=== PATIENT | female | born 1985 | race Caucasian/White ===

== ENCOUNTER → 2023-07-09 10:27 | Outpatient (BNVA) | payer OTHER, SELFPAY | PROVIDERS: Visit Provider Physician Assistant Surgical ==

== ENCOUNTER 2023-08-11 08:09 | Outpatient (AMB) | payer OTHER, SELFPAY ==
--- NOTE | 2023-08-09 15:20 | A.OFFVIS_ITS ---
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 HPI Details Start time: 3.14pm, End time: 3.59pm ?I spent 40 minutes speaking with the patient on the phone plus an additional 5 minutes reviewing and updating records for a total of 45 minutes HPI Comments History of Present Illness Details Previous weight loss efforts: Weight Watchers, self diets Wakes up: 7am, Sleeps: 9pm Breakfast: 8am (muffin, Atkins breakfast, or Premier premade shake) Lunch: skips Dinner: 5pm (steak with potatoes) Snacks: 11am and 2pm (skinny popcorn) Exercise: had a walking pad Fluids: Coffee (1-2 cups/day premade with calories), tea: none, soda: none, juice: none, ETOH: none PFSH Medical History (Updated 08/09/23 @ 15:27 by Alvin Copeland MD) Sciatica ADHD PTSD (post-traumatic stress disorder) Anxiety Depression Morbid obesity Surgical History (Updated 08/09/23 @ 15:27 by Alvin Copeland MD) Tubal ligation status History of placement of ear tubes Hx of section Family History (Updated 07/09/23 @ 14:32 by Emy Keys CMA) Mother Cancer, uterine Maternal Grandmother Cervical cancer Father FHx: prostate cancer Colon cancer Paternal Uncle Colon cancer Paternal Grandfather No problems noted. Social History (Updated 07/09/23 @ 14:14 by Emy Keys CMA) Alcohol intake: never Tobacco use type: Smokeless Tobacco Physical Exam Vital Signs: BMI result Body Mass Index 53.5 Assessment & Plan Assessment & Plan (1) Morbid obesity: Code(s): E66.01 - Morbid (severe) obesity due to excess calories Plan: 1.? Plan for lap sleeve gastrectomy. If diaphragmatic or ventral hernias are present at time of surgery, these will be repaired laparoscopically as well. 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 I emphasized the importance of close follow-up, adherence to instructions and good communication. 2. Nutritional counseling. Start with 2 premade PREMIER protein shakes (mix 5.5oz of Premier shake with 3oz low fat unsweetened almond milk each) at 8am- 10am and 11am-1pm, 1 protein bar (CELEBRATE protein bars, buy at [facility]) at 2pm-4pm, dinner at 5pm (10 forks of protein and 10 forks of salad/vegetables) AND one more protein bar after dinner at 7pm-9pm. So you do 2 protein shakes, 2 protein bars and one meal per day. Meal to include lean meat (beef, fish, pork, turkey, chicken), or bengali yogurt, or egg whites, or beans with a salad with olive oil and fruits (berries, pears, apples, kiwi). Avoid salt, breads, potatoes, rice, pasta, desserts. 3. Each shake would be drunk slowly, like coffee in a period of 2 hours. 4. Cut each bar in 4 pieces and eat each piece in 30min ?to make each bar last 2 hours. 5. I emphasized the importance of measuring accurately the food portion and measure it when serving the food in plate 6. The meal portions include 10 full-size forks of meat and 10 full-size forks of salad. You always eat the meat portion but you can replace up to 5 forks for salad/vegetables with rice, potatoes or pasta, or a fruit ?if you like. The less you do it the better weight loss will be. 7. One full-size fork is what it can be scooped on the fork without falling aside and not what can be bit with the fork. Use regular forks like those you find in a typical restaurant. 8.? Please send me weight measurements as soon as possible and then once a week. Always include your diet and exercise plan. 9. Start the walking pad burning 300 calories per day, either all together or in 2 sessions of 150 calories each, daily Goal is to burn 2000 calories per week on exercise. 10.?It is important of avoiding and for at least 18 months postoperatively and has been discussed at the infosession. 11. Goal is to lose at least 1.5-2lbs per week 12. Goal to lose 10% of your weight before surgery, which is about 28lbs. Ultimate weight goal: 255lbs before surgery 13. Please follow the diet plan exactly without any change. If you don't like something about the plan or you feel hungry you need to communicate with me so I can help you revise the plan. You should not change the plan yourself. Orders: Orders Complete Blood Count Auto Diff Today E66.01 - Morbid (severe) obesity due to excess calories Lipid Panel Today E66.01 - Morbid (severe) obesity due to excess calories Vitamin B1 Today E66.01 - Morbid (severe) obesity due to excess calories TSH reflex Free T4 Today E66.01 - Morbid (severe) obesity due to excess calories US abdomen comp w elastography 08/09/23 E66.01 - Morbid (severe) obesity due to excess calories Insulin Today E66.01 - Morbid (severe) obesity due to excess calories Hemoglobin A1c Today E66.01 - Morbid (severe) obesity due to excess calories H Pylori Breath Test 08/09/23 E66.01 - Morbid (severe) obesity due to excess calories IRON PROFILE Today E66.01 - Morbid (severe) obesity due to excess calories Comprehensive Met. Panel Today E66.01 - Morbid (severe) obesity due to excess calories Vitamin B12 and Folate Today E66.01 - Morbid (severe) obesity due to excess calories Zinc Today E66.01 - Morbid (severe) obesity due to excess calories C Reactive Protein Today E66.01 - Morbid (severe) obesity due to excess calories Vitamin A Today E66.01 - Morbid (severe) obesity due to excess calories Ferritin Today E66.01 - Morbid (severe) obesity due to excess calories Vitamin D 25-OH Total Today E66.01 - Morbid (severe) obesity due to excess calories XR chest 2V Today E66.01 - Morbid (severe) obesity due to excess calories ECG 12 lead EKG Today E66.01 - Morbid (severe) obesity due to excess calories FL upper GI w air 08/09/23 E66.01 - Morbid (severe) obesity due to excess calories Referrals Behavioral Health Referral E66.01 - Morbid (severe) obesity due to excess calories Nutrition/Dietitian Referral E66.01 - Morbid (severe) obesity due to excess calories Telehealth Telehealth Location of provider rendering services: practice address Location of patient: address on file Patient Identification confirmed using: Name, : Yes Telehealth method: voice only Patient verbally consented to treatment: Yes Patient verbally consented to billing insurance company: Yes Patient informed of any privacy concerns related to visit: Yes Minutes spent on Phone/Video with Pt.: 45 Coding Level of Care Code Tele New Pt Level 4 (52123) Diagnoses Morbid obesity E66.01 Time Spent (min) 45
[2023-08-09 15:35] VITALS: BMI 53.5
== END 2023-08-11 23:18 | disposition home or self-care (01) ==
LOC: HO.HBS 08:09
PROVIDERS: Visit Provider Surgery
DX: E66.01 Morbid (severe) obesity due to excess calories (principal)
CPT/HCPCS: 99204

== ENCOUNTER → 2023-08-11 08:09 | Outpatient (BNVA) | payer OTHER, SELFPAY | PROVIDERS: Visit Provider Surgery | DX: E66.01 Morbid (severe) obesity due to excess calories (principal) ==

== ENCOUNTER 2023-08-11 10:38 | Outpatient (REF) | payer OTHER, SELFPAY ==
--- NOTE | ~2023-08-11 | XR_ITS ---
EXAMINATION: XR CHEST CLINICAL INFORMATION: Obesity preprocedure. COMPARISON: None available. TECHNIQUE: 2 views of the chest were obtained. FINDINGS: No significant abnormality is noted involving the heart, lungs, mediastinum, bony thorax or soft tissues. XR/XR chest 2V IMPRESSION: Unremarkable examination.
[2023-08-11 10:53] LABS: MANUAL DIFF FLAG NO
--- NOTE | 2023-08-11 10:53 | ECG_ITS ---
Test Reason : obesity Blood Pressure : / mmHG Vent. Rate : 096 BPM Atrial Rate : 096 BPM P-R Int : 146 ms QRS Dur : 072 ms QT Int : 386 ms P-R-T Axes : 030 039 017 degrees QTc Int : 487 ms Normal sinus rhythm Nonspecific ST and T wave abnormality Abnormal ECG No previous ECGs available Referred By: Alvin Copeland Electronically Signed By:Jace Watson
[2023-08-11 11:23] LABS: Basophils Absolute Auto 0.1 X10*3/uL (0.0-0.2); Basophils Percent Auto 0.4 % (0-2); Eosinophils Absolute Auto 0.3 X10*3/uL (0.0-0.4); Eosinophils Percent Auto 2.9 % (0-4); Hematocrit 42.5 % (37.0-47.0); Imm Gran Abs Auto 0.04 X10*3/uL (0.00-0.03); Imm Gran Pct Auto 0.4 % (0.0-0.4); Lymphocytes Absolute Auto 3.8 X10*3/uL (1.2-4.9); Lymphocytes Percent Auto 33.5 % (20-40); Mean Corpuscular HGB Conc 32.9 g/dl (31.0-35.0); Mean Corpuscular Hemoglobin 29.4 pg (27.0-33.0); Mean Corpuscular Volume 89.1 fL (80.0-98.0); Mean Platelet Volume 8.9 fL (9.4-12.3); Monocytes Absolute Auto 0.6 X10*3/uL (0.1-1.2); Monocytes Percent Auto 4.9 % (2-11); Neutrophils Absolute Auto 6.6 x10*3/uL (2.0-8.3); Neutrophils Percent Auto 57.9 % (45-73); Platelet Count 381 X10*3/uL (160-400); Red Blood Count 4.77 X10*6/uL (4.20-5.50); Red Cell Distribution Width 13.8 % (11.0-16.0); White Blood Count 11.4 X10*3/uL (4.8-10.8)
[2023-08-11 11:30] LABS: Estimated Average Glucose 111 mg/dL; Hemoglobin A1c % 5.5 % (<6.0)
[2023-08-11 12:10] LABS: Alanine Aminotransferase 26 U/L (0-31); Alkaline Phosphatase 99 U/L (39-117); Anion Gap 10 (12-20); Aspartate Amino Transferase 15 U/L (5-31); Bilirubin Total 0.2 mg/dL (0.0-1.0); Blood Urea Nitrogen 12 mg/dL (9-16); C Reactive Protein 1.84 mg/dL (< or = 0.50); Calcium 9.2 mg/dL (8.4-10.2); Carbon Dioxide 22 mmol/L (22-29); Chloride 114 mmol/L (96-108); Cholesterol 128 mg/dL (<200); Estimated Glomerular Filt Rate > 60; Glucose Random 79 mg/dL (60-115); HDL Cholesterol 45 mg/dL (>40); Iron 50 mcg/dL (30-160); LDL Cholesterol Calculated 72 mg/dL (<100); Percent Iron Saturation 18 % (15-50); Potassium 3.8 mmol/L (3.3-5.1); Sodium 142 mmol/L (135-145); Total Iron Binding Capacity 278 mcg/dL (228-428); Total Protein 7.8 g/dL (6.5-8.0); Triglycerides 58 mg/dL (<150); Unsaturated Iron Binding 228 ug/dL
[2023-08-11 12:32] LABS: Folate 5.6 ng/mL (> or = 4.0); Vitamin B12 366 pg/mL (200-900)
[2023-08-11 12:36] LABS: Ferritin 57 ng/mL (10-122); Insulin 26 uU/mL (2-29); TSH reflex Free T4 1.27 uIU/mL (0.32-4.0); Vitamin D 25-OH Total 16.1 ng/mL (>30)
[2023-08-13 15:29] LABS: Zinc 74 mcg/dL (60-130)
[2023-08-15 00:43] LABS: Vitamin A 42 mcg/dL (38-98)
[2023-08-15 15:49] LABS: Vitamin B1 15 nmol/L (8-30)
== END 2023-08-11 10:39 | disposition home or self-care (01) ==
LOC: HO.XRAY 10:38
PROVIDERS: Visit Provider Surgery
DX: E66.01 Morbid (severe) obesity due to excess calories (principal); Z68.43 Body mass index [BMI] 50.0-59.9, adult; Z71.3 Dietary counseling and surveillance
CPT/HCPCS: 36415; 71046; 80053; 80061; 82306; 82607; 82728; 82746; 83036; 83525; 83540; 84425; 84443; 84590; 84630; 85025; 86140; 93005

== ENCOUNTER → 2023-08-11 10:53 | Outpatient (BNV) | payer OTHER, SELFPAY | PROVIDERS: Visit Provider Internal Medicine Cardiovascular Disease | DX: E66.01 Morbid (severe) obesity due to excess calories (principal); R94.31 Abnormal electrocardiogram [ECG] [EKG] | CPT/HCPCS: 93010 ==

== ENCOUNTER → 2023-08-12 13:14 | Outpatient (BNVA) | payer OTHER, SELFPAY | PROVIDERS: Visit Provider Counselor Mental Health | DX: F43.10 Post-traumatic stress disorder, unspecified (principal); E66.01 Morbid (severe) obesity due to excess calories; F32.A Depression, unspecified ==

== ENCOUNTER 2023-08-20 09:00 | Outpatient (REF) | payer OTHER, SELFPAY ==
--- NOTE | ~2023-08-20 | FL_ITS ---
EXAMINATION: XR FLUOROSCOPY UPPER GI WITH AIR CLINICAL INFORMATION: Preop evaluation prior to bariatric surgery COMPARISON: None TECHNIQUE: Fluoroscopic air contrast upper GI examination was performed utilizing standard techniques with thin and thick barium and effervescent granules. Numerous spot images were obtained. FINDINGS: Dual and single contrast images of the esophagus demonstrate normal caliber, contour, and mucosal pattern. No evidence of stricture, mass, or ulcerations identified. Esophageal peristalsis was normal. No evidence of hiatus hernia identified. Gastroesophageal reflux is seen up to the thoracic inlet. Dual contrast and single contrast images of the stomach demonstrated normal contour and mucosal pattern without evidence of mass, ulceration, or other abnormality. Contrast freely passed into the gastric antrum and duodenal bulb without delay. Single and air-contrast images of the duodenal bulb demonstrate no abnormality. The duodenal sweep has a normal appearance, course, and mucosal fold appearance. No malrotation. The imaged proximal jejunum has a normal fold pattern and caliber. FLUOROSCOPY TIME: 4 minutes 23 seconds Number of Spot Images: 9 Number of Cine: 11 DOSE AREA PRODUCT: 4070 uGy-m2 (microgray-meter squared) FL/FL upper GI w air IMPRESSION: 1. Moderate gastroesophageal reflux. This procedure was performed by Armain Mejia PA-C, and supervised by Dr. Espinal
== END 2023-08-20 09:01 | disposition home or self-care (01) ==
LOC: HO.XRAY 09:00
PROVIDERS: Visit Provider Surgery
DX: E66.01 Morbid (severe) obesity due to excess calories (principal)
CPT/HCPCS: 74246

== ENCOUNTER → 2023-08-20 09:01 | Outpatient (BNV) | payer OTHER, SELFPAY | PROVIDERS: Visit Provider Physician Assistant Surgical | DX: E66.01 Morbid (severe) obesity due to excess calories (principal); Z01.818 Encounter for other preprocedural examination | CPT/HCPCS: 74246 ==

== ENCOUNTER 2023-08-28 09:05 | Outpatient (REF) | payer OTHER, SELFPAY ==
--- NOTE | ~2023-08-28 | US_ITS ---
EXAMINATION: US COMPLETE ABDOMEN WITH LIVER ELASTOGRAPHY CLINICAL INFORMATION: Morbid obesity. COMPARISON: None available. TECHNIQUE: Real-time imaging of the abdominal viscera. Noninvasive ultrasound liver fibrosis assessment is performed using Pipo ElastPQ point quantification shear wave elastography (2D-SWE) with a C5-2 MHz transducer. Multiple elastography samples are obtained. FINDINGS: PANCREAS: Normal. The visualized pancreatic head and body are normal in appearance. The remainder of the pancreas is obscured from visualization by the overlying bowel gas. ABDOMINAL AORTA: The proximal, middle, and distal aortic segments are normal in caliber. INFERIOR VENA CAVA: Visualized portions are normal. LIVER: The liver demonstrates normal size, contour and generally increased echogenicity. No focal lesion or intrahepatic biliary duct dilatation. The right lobe measures 16.2 cm in length. The left lobe measures 11.2 cm in length. Portal flow is towards the liver (hepatopetal). Shear wave liver elastography median stiffness is 1.7 m/s (reference: normal median stiffness is 1.3 m/s or less). IQR/median stiffness to assess sampling precision is 0.13 (reference: good quality data set is IQR/median stiffness of 0.15 or less). GALLBLADDER: There are gallstones, without evidence of stones, sludge, polyps, wall thickening or pericholecystic fluid. COMMON BILE DUCT: Normal in caliber measuring 0.3 cm in diameter. RIGHT KIDNEY: Normal. No hydronephrosis. No renal calculi or focal parenchymal lesions. The kidney measures 11.6 cm in maximum dimension. LEFT KIDNEY: Normal. No hydronephrosis. No renal calculi or focal parenchymal lesions. The kidney measures 11.6 cm in maximum dimension. SPLEEN: Normal. The spleen measures 9.6 cm in maximum dimension. FREE FLUID: None. US/US abdomen comp w elastography IMPRESSION: 1. There is generalized increase in hepatic echotexture, consistent with fatty infiltration or hepatocellular disease. Please correlate clinically. No focal hepatic mass or intrahepatic biliary dilatation is seen. 2. Liver elastography: Measurements are suggestive of compensated advanced chronic liver disease but need further test for confirmation. 3. There is cholelithiasis. REFERENCE: Society of Radiologists in Ultrasound Liver Stiffness Thresholds (2020): LIVER STIFFNESS THRESHOLDS: *Liver Stiffness equal or less than 1.3 m/s: High probability of being normal. *Liver Stiffness less than 1.7 m/s: In the absence of other known clinical signs, rules out compensated advanced chronic liver disease. *Liver Stiffness 1.7-2.1 m/s: Suggestive of compensated advanced chronic liver disease but need further test for confirmation. *Liver Stiffness over 2.1 m/s: Rules in compensated advanced chronic liver disease. *Liver Stiffness over 2.4 m/s: Suggestive of clinically significant portal hypertension. QUALITY OF DATA SET: *IQR/Median value equal or less than 0.15 implies a quality data set. *IQR/Median value over 0.15 implies a poor quality data set. SIGNIFICANT CHANGE FROM PRIOR EXAM: Significant change if liver stiffness measurement is 10% or greater from prior exam. OTHER CONSIDERATIONS: The stage of liver fibrosis may be overestimated in the setting of acute hepatitis, liver inflammation, elevated liver function tests, hepatic vascular congestion, obstructive cholestasis, non-fasting state, and infiltrative diseases such as amyloidosis and lymphoma. In some patients with NAFLD, the liver stiffness thresholds for compensated advanced chronic liver disease may be lower. In causes other than viral hepatitis and NAFLD, liver stiffness thresholds are not well established.
== END 2023-08-28 09:06 | disposition home or self-care (01) ==
LOC: HO.US 09:05
PROVIDERS: Visit Provider Surgery
DX: E66.01 Morbid (severe) obesity due to excess calories (principal)
CPT/HCPCS: 76700; 76981

== ENCOUNTER 2023-09-02 11:19 | Day surgery (SDC) | payer OTHER, SELFPAY ==
--- NOTE | 2023-08-29 14:49 | HO.ANESPROP2 ---
Documented by User: Emily Lake NP 08/29/23 14:49 HPI - Anesthesia Eval Consult details Narrative: 38yo F for Upper Endoscopy PMFSH Active Problems Active Problems: All Active Problems Abnormal EKG (Acute) Vitamin B12 deficiency (Acute) Vitamin D deficiency (Acute) Sciatica (Acute) ADHD (Acute) PTSD (post-traumatic stress disorder) (Acute) Anxiety (Acute) Depression (Acute) Morbid obesity (Acute) Past Medical History Medical History Sciatica ADHD PTSD (post-traumatic stress disorder) Anxiety Depression Morbid obesity Family History Family History Mother Cancer, uterine Maternal Grandmother Cervical cancer Father FHx: prostate cancer Colon cancer Paternal Uncle Colon cancer Paternal Grandfather No problems noted. Surgical History Surgical History Tubal ligation status History of placement of ear tubes Hx of section Social History Social History Alcohol intake: never Patient Tobacco Use Status: Never used Tobacco Tobacco use type: Smokeless Tobacco Use of substances other than those prescribed or required for medical reasons: No Are you DNR?: No Advance Directives: No Advance Directives Information Provided: Yes Meds Allergies Allergy/AdvReac Type Severity Reaction Status Date / Time celclor AdvReac Mild Hives Uncoded 09/02/23 11:50 Home Medications ?Medication ?Instructions ?Recorded ?Confirmed ?Last Taken ?Type medroxyprogesterone 150 mg/mL 150 mg IM [id number] 07/09/23 Unknown History intramuscular suspension (Depo-Provera) nortriptyline 50 mg capsule 60 mg PO DAILY 07/09/23 09/02/23 09/01/23 History topiramate 200 mg tablet 350 mg PO DAILY 07/09/23 09/02/23 09/01/23 History escitalopram oxalate 10 mg tablet 10 mg PO DAILY 08/09/23 09/02/23 09/01/23 History hydroxyzine HCl 25 mg tablet 25 mg PO BEDTIME 08/09/23 08/09/23 Unknown History Assessment and Plan Assessment Anesthesia Assessment: Chart Reviewed Documented by User: Jennifer Pendleton MD 09/02/23 13:45 PMFSH Past Medical History Medical History Sciatica ADHD PTSD (post-traumatic stress disorder) Anxiety Depression Morbid obesity Family History Family History Mother Cancer, uterine Maternal Grandmother Cervical cancer Father FHx: prostate cancer Colon cancer Paternal Uncle Colon cancer Paternal Grandfather No problems noted. Surgical History Surgical History Tubal ligation status History of placement of ear tubes Hx of section History of Problems with Anesthesia: No Social History Social History Alcohol intake: never Patient Tobacco Use Status: Never used Tobacco Tobacco use type: Smokeless Tobacco Use of substances other than those prescribed or required for medical reasons: No Are you DNR?: No Advance Directives: No Advance Directives Information Provided: Yes Meds Allergies Allergy/AdvReac Type Severity Reaction Status Date / Time celclor AdvReac Mild Hives Uncoded 09/02/23 11:50 Home Medications ?Medication ?Instructions ?Recorded ?Confirmed ?Last Taken ?Type medroxyprogesterone 150 mg/mL 150 mg IM [id number] 07/09/23 Unknown History intramuscular suspension (Depo-Provera) nortriptyline 50 mg capsule 60 mg PO DAILY 07/09/23 09/02/23 09/01/23 History topiramate 200 mg tablet 350 mg PO DAILY 07/09/23 09/02/23 09/01/23 History escitalopram oxalate 10 mg tablet 10 mg PO DAILY 08/09/23 09/02/23 09/01/23 History hydroxyzine HCl 25 mg tablet 25 mg PO BEDTIME 08/09/23 08/09/23 Unknown History Exam Airway Mallampati Class: III (globally poor dentition) TM Dist: >3cm Neck ROM: Full Loose/Missing/Broken Teeth: Yes, Upper and Lower Heart: RRR Lungs: CTA Assessment and Plan Assessment Anesthesia Assessment: Anesthesia Plan Discussed Final Anesthetic Review History of Problems with Anesthesia: No NPO: Yes ASA Class: III Final Preanesthetic Review: Meds/Allgs Chart Reviewed, Consent Obtained/Reviewed and Anes Risks/Benef Reviewed Patient Risk: Intermediate Procedure Risk: Intermediate Anesthetic Plan Anesthetic Plan: MAC: Disposition: Standard PACU
[2023-09-02] VITALS (17 sets, daily range): BP systolic 108–149; BP diastolic 72–90; PULSE 81–91; RESP 14–18; TEMP 35.9–36.6; O2SAT 92–100; BMI 51.4
[2023-09-02] MEDS: Lactated Ringers 1,000 ML 80 ML IVCONT (12:12)
--- NOTE | 2023-09-02 15:08 | P.HPSUR_ITS ---
Pre-Procedural Eval Section A - 24 Hr Update-Section A only Date of Service: 09/02/23 The patient is an INPATIENT: No Section B - Complete if H&P > 30 days Chief Complaint: Morbid (severe) obesity due to excess calories Details of Present Illness: GERD Relevant Family History (Specify if Yes): No Relevant Social History: None Present Medications: None Medical History: No relevant PMH History of Previous Operations: No relevant previous surgery Allergies: Allergies Allergy/AdvReac Type Severity Reaction Status Date / Time celclor AdvReac Mild Hives Uncoded 09/02/23 11:50 Review of Systems Sugical H&P ROS: Negative: Constitution, Cardiovascular, Respiratory, Neurological, Psychiatric, Hem-Onc, Allergic/Immunologic, Gastrointestinal, Genitourinary, Musculoskeletal, Integumentary, Endocrine and Eyes/Ears/N ose/Throat Exam Surgical H&P Exam: Normal: HEENT, Normal: Heart, Normal: Lungs, Normal: Extremities, Normal: Abdomen, Normal: Skin and Normal: Neurological Plan Diagnosis/Plan: Unchanged (EGD to assess etiology of GERD. Risks of bleeding and perforation were discussed with the patient and she is in agreement with the plan.) I have reviewed the history and physical and performed a pertinent physical examination on my patient. No changes have occurred unless specified. Time Spent With Patient Time: Total time managing care of this patient today ____ minutes.
--- NOTE | 2023-09-02 15:11 | P.BOP_ITS ---
Brief Operative Note Date of Service: 09/02/23 Pre-op diagnosis: GERD Post-op diagnosis: same Procedure: PROCEDURE DATE: 09/02/2023 PREOPERATIVE DIAGNOSIS: GERD POSTOPERATIVE DIAGNOSIS: ?Same as above. 1) Normal endoscopy PROCEDURE: [id number] with biopsies Surgeon: Antonio Copeland M.D.. Ph.D. Washer Operator: None ? Anesthesia: IV sedation Estimated blood loss: ?Minimal FINDINGS AND PROCEDURE: ? OPERATIVE INDICATIONS: ?The patient is a 38 year old female known to me who is interested in bariatric surgery. The patient has GERD. Based on this information I recommended an upper endoscopy to evaluate the patient's symptoms. Risks and complications of the surgery were discussed with the patient in advance particularly the possibility of perforation or bleeding that may require surgica l intervention. The patient understood the risks and was in agreement with the plan. ? PROCEDURE: After informed consent was obtained by the patient, the patient was ?transferred to the Operating Room and was placed in the supine position.? After successful induction of IV sedation, a mouth block was inserted and the patient was placed in the left lateral decubitus position. An upper endoscopy was performed next, the oropharynx and esophagus appeared within the normal limits. There was no hiatal hernia. The z-line was smooth. Two biopsies were obtained from the distal esophagus 2-3 cm proximal to the GE junction and two additional biopsies from the GE junction. The stomach was entered and it appeared to be of normal size. There was no gastritis. There was no stricture or ulcer. A biopsy was obtained from the gastric fundus and antrum. No significant bleeding was noted from any of the biopsy sites. The scope was then advanced into the duodenum which appeared to be normal as well. Retr oflexion of the scope revealed a normal GE junction. At that point the duodenum ?and the stomach were decompressed and the scope was withdrawn from the patient's mouth. The patient extubated and was transferred in stable condition to the Recovery Room for further care. I was present and performed all steps of the procedure. There were no residents to assist with this case. Brandon Copeland M.D., Ph.D. Surgeon: Alvin Copeland MD Anesthesia: MAC Was an Washer Operator used for this Procedure?: No Estimated blood loss (mL): 0 IV fluids (mL): 400 Urine output (mL): 0 (No Louis to record output) Pathology: other (1) antrum x1, 2) fundus x1, 3) GE junction x2, 4) distal esophagus x2) Condition: stable Disposition: PACU
--- NOTE | 2023-09-02 17:32 | PC.NURSE ---
Dr. Guevara at bedside to assess patient. Cleared patient to be discharged at this time.
== END 2023-09-02 17:34 | disposition home or self-care (01) ==
PROVIDERS: Visit Provider Surgery
PROC: 0DJ08ZZ Inspection of Upper Intestinal Tract, Via Natural or Artificial Opening Endoscopic (ICD-10-PCS; CPT 43235; principal; 2023-09-02 13:10)
DX: K21.9 Gastro-esophageal reflux disease without esophagitis (principal); E66.01 Morbid (severe) obesity due to excess calories; Z68.43 Body mass index [BMI] 50.0-59.9, adult; F90.9 Attention-deficit hyperactivity disorder, unspecified type; F32.A Depression, unspecified; F41.9 Anxiety disorder, unspecified; F43.10 Post-traumatic stress disorder, unspecified; M54.30 Sciatica, unspecified side; Z79.899 Other long term (current) drug therapy; Z88.8 Allergy status to other drugs, medicaments and biological substances
CPT/HCPCS: 43239; 88305; 88313; 88342; J2405; J2704; J3010

== ENCOUNTER → 2023-09-02 11:19 | Outpatient (BNV) | payer OTHER, SELFPAY | PROVIDERS: Visit Provider Surgery | DX: K21.9 Gastro-esophageal reflux disease without esophagitis (principal) | CPT/HCPCS: 43239 ==

== ENCOUNTER → 2023-09-10 11:20 | Outpatient (BNVA) | payer OTHER, SELFPAY | PROVIDERS: Visit Provider Surgery | DX: K80.20 Calculus of gallbladder without cholecystitis without obstruction (principal); R11.0 Nausea ==

== ENCOUNTER → 2023-09-10 11:20 | Outpatient (AMB) | payer OTHER, SELFPAY ==
--- NOTE | 2023-09-10 08:21 | MHC.OFFVISWM ---
VS Expanded 09/10/23 12:17 Height 5 ft 1 in Weight 272 lb 5 oz BMI 51.4 Body Fat % 69.3 Body Fat Mass 188.8 Fat Free Mass 83.4 Visceral Fat Rating 30 Body Water % 20.9 Body Water Mass 56.9 Basal Metabolic Rate/Score 1,928 Intake Visit Reasons: TV Pre Op Lap Jenelle 09/17/23 Allergies celclor Adverse Reaction (Mild, Uncoded 09/02/23 11:50) Hives Medication List - Last Reconciled 09/10/23 by Alvin Copeland MD cholecalciferol (vitamin D3) 125 mcg PO DAILY escitalopram oxalate 10 mg PO DAILY hydroxyzine HCl 25 mg PO BEDTIME mecobalamin (vitamin B12) 1,000 mcg sublingual DAILY medroxyprogesterone (Depo-Provera) 150 mg IM [id number] nortriptyline 60 mg PO DAILY ondansetron 4 mg PO Q12H topiramate 350 mg PO DAILY HPI HPI TV Pre Op Lap Jenelle 09/17/23: Details: Start time: 10.30am, End time: 10.50am ?I spent 15 minutes speaking with the patient on the phone plus an additional 5 minutes reviewing and updating records for a total of 20 minutes HPI Comments Details: Patient was found to have cholelithiasis and is scheduled for [facility] Medical History Sciatica ADHD PTSD (post-traumatic stress disorder) Anxiety Depression Morbid obesity Surgical History Tubal ligation status History of placement of ear tubes Hx of section Family History Mother Cancer, uterine Maternal Grandmother Cervical cancer Father FHx: prostate cancer Colon cancer Paternal Uncle Colon cancer Paternal Grandfather No problems noted. Social History Alcohol intake: never Patient Tobacco Use Status: Never used Tobacco Tobacco use type: Smokeless Tobacco Telehealth Telehealth Telehealth Platform: Telephone Location of provider rendering services: practice address Location of patient: address on file Patient Identification confirmed using: Name, : Yes Telehealth method: voice only Patient verbally consented to treatment: Yes Patient verbally consented to billing insurance company: Yes Patient informed of any privacy concerns related to visit: Yes Minutes spent on Phone/Video with Pt.: 20 Assessment & Plan Assessment & Plan (1) Cholelithiasis: Code(s): K80.20 - Calculus of gallbladder without cholecystitis without obstruction Category: Medical Qualifiers: Cholelithiasis location: gallbladder Cholecystitis presence: without cholecystitis Biliary obstruction: without biliary obstruction Qualified Code(s): K80.20 - Calculus of gallbladder without cholecystitis without obstruction Plan: 1. The patient was not aware of having a cholelithiasis. We also discussed that bariatric surgery may accelerate the onset of symptoms of cholelithiasis and that is why elective cholecystectomy in indicated and recommended. We discussed in detail the potential complications and their management including bleeding, bile leak, pancreatitis and major bile duct injury. 2. Avoid any aspirin, motrin, aleve, ibuprofen, advil, meloxicam. They can cause bleeding. You can use Tylenol 3. Do your preoperative blood work nay day tomorrow 09/11/23 or Friday09/12/23. No need to fast. Orders: Orders Type and Screen Today K80.20 - Calculus of gallbladder without cholecystitis without obstruction Prothrombin Time INR Today K80.20 - Calculus of gallbladder without cholecystitis without obstruction Partial Thromboplastin Time Today K80.20 - Calculus of gallbladder without cholecystitis without obstruction Medications: New ondansetron 4 mg PO Q12H 20 tabs 0RF nausea and vomiting R11.0 - Nausea
[2023-09-10 12:17] VITALS: BMI 51.4
== END ==
PROVIDERS: Visit Provider Surgery
DX: K80.20 Calculus of gallbladder without cholecystitis without obstruction (principal)
CPT/HCPCS: 99213

== ENCOUNTER → 2023-09-11 07:47 | Outpatient (REF) | payer OTHER, SELFPAY ==
--- NOTE | 2023-09-11 07:50 | CA_ITS ---
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 Technically limited study 2. Low normal LV ejection fraction of 50-55% 3. Normal cardiac valvular Dopplers 4. Normal RV systolic pressure Findings Procedure Information Contrast agent, definity, is being given per protocol without apparent complications. Left Ventricle Normal left ventricular cavity size. There is normal left ventricular wall thickness. The left ventricular systolic function is low normal. The visually estimated ejection fraction is between 50-55%. Spectral Doppler is indicative of a normal filling pattern. Right Ventricle The right ventricle was not well visualized. There is normal right ventricular systolic function. Atria The left atrium is normal in size. Interatrial shunt cannot be excluded. The right atrium was not well visualized. Aortic Valve The aortic valve structure and function is likely normal. There is no aortic valve stenosis. There is no aortic valve regurgitation. Mitral Valve Likely normal mitral valve structure and function. There is trace mitral valve regurgitation. There is no mitral valve stenosis. Pulmonic Valve The pulmonic valve was not well visualized. Tricuspid Valve Likely normal tricuspid valve structure and function. There is trace tricuspid valve regurgitation. The right ventricular systolic pressure is normal. The right ventricular systolic pressure is 10 mmHg. Normal right atrial pressure. There is no evidence of pulmonary hypertension. Great Vessels The aorta was not well visualized. The pulmonary artery was not well visualized. Venous The inferior vena cava is normal in size and collapses greater than 50% with inspiration. Pericardium/Pleural The pericardium was not well visualized. Prior Study Comparison No prior study available for comparison. Measurements 2D Linear Measurements IVSd: 1.01 0.6-0.9/0.6-1.0 cm LVIDd: 4.56 3.9-5.3/4.2-5.9 cm LVIDd Index: 2.13 2.4-3.2/2.2-3.1 cm/m2 LVIDs: 3.27 2.0-3.6 cm LVPWd: 0.96 0.7-1.1 cm LA Diam: 3.50 2.7-3.8/3.0-4.0 cm LAIDs Index: 1.64 1.5-2.3 cm/m2 LV Mass: 190.44 67-162/88-224 g LV Mass Index: 88.99 43-95/49-115 g/m2 LVOT Diam: 2.20 3.0+(-)1.3 cm 2D Systolic Function EF 4C: 52.00 >55% EF 2C: 55.60 >55% EF BiP: 53.30 >55% Mitral Valve MV Pk E: 0.82 MV PK A: 0.62 MV Decel Time: 149.00 E/A: 1.30 E'Lateral: 8.16 E'Medial: 7.94 E/E' Med: 10.40 E/E' Lat: 10.10 PHT: 44.00 MVA PHT: 5.00 Decel [place]: 5.53 Aortic Valve AoV Pk Nader: 1.31 AoV Mn Nader: 0.89 AoV VTI: 0.26 AoV Pk Grad: 7.00 Aov Mn Grad: 4.00 DINESH Cont.VTI: 2.27 LVOT LVOT Pk Nader: 0.73 LVOT Mn Nader: 0.49 LVOT VTI: 0.16 LVOT Pk Grad: 2.00 LVOT Mn Grad: 1.00 LVOT Diam: 2.20 LVOT Area: 3.80 Diastolic Function MV Pk E: 0.82 MV Pk A: 0.62 E/A: 1.30 E'Medial: 7.94 E/E' Med: 10.40 E' Laterial: 8.16 E/E' Lat: 10.10 Right Ventricle TAPSE (mm): 18.40 TVS' Nader: 11.40 Tricuspid Valve TR Pk Nader: 1.36 TR Pk Grad: 7.00 RA Press: 3.00 RVSP: 10.00 Great Vessels Aorta Sinus of Valsalva: 3.59 2.0-3.[address] [place]: 2.91 1.7-3.4 cm Ao Asc: 3.40 2.1-3.4 cm Updated in Other Vendor System with Status of Final Stef Reina MD electronically signed on 09/11/2023 3:54:11 PM with status of Final
--- NOTE | 2023-09-11 07:50 | CA_ITS ---
Acquisition Time: 2023-09-11 09:19:04 Total Exercise Time: 00:06:29 Test Indications: Abnormal ECG Medications: ESCITALOPRAM HYDROXYZINE TOPIRAMATE NORTRIPTYLINE Protocol: NORBERTO Max HR: 169 BPM 92% of Pred: 182 BPM Max BP: 160/068 mmHG Max Work Load: 7.5 METS Exercise stress test exercise 6 min 29 sec of Norberto protocol achieving 87% MPHR, with moderate SOB, no chest discomfort, with isolated PVCs, with normotensive response to exercise, without EKG changes. Breathing returned back to normal with rest. Test reviewed with Dr. Watson Referred By: Alvin Copeland Overread By: Rin Espinal
[2023-09-11 10:15] LABS: Prothrombin Time 12.7 SEC (11.1-13.3)
== END ==
LOC: HO.CARD 07:47
PROVIDERS: Visit Provider Surgery
DX: R94.31 Abnormal electrocardiogram [ECG] [EKG] (principal); K80.20 Calculus of gallbladder without cholecystitis without obstruction
CPT/HCPCS: 36415; 85610; 85730; 93017; 93306; Q9957

== ENCOUNTER → 2023-09-11 07:50 | Outpatient (BNV) | payer OTHER, SELFPAY | PROVIDERS: Visit Provider Nurse Practitioner | DX: R06.02 Shortness of breath (principal); I49.3 Ventricular premature depolarization; R94.31 Abnormal electrocardiogram [ECG] [EKG] | CPT/HCPCS: 93016; 93018; 93320; 93325; 93350; 93352 ==

== ENCOUNTER 2023-09-17 17:14 | Observation (INO) | payer OTHER, SELFPAY ==
[2023-09-15 13:53] VITALS: BMI 51.4
--- NOTE | 2023-09-15 14:52 | HO.ANESPROP2 ---
Documented by User: Emily Lake NP 09/15/23 14:54 HPI - Anesthesia Eval Consult details Narrative: 38yo F for Cholecystectomy Laparoscopic PMFSH Active Problems Active Problems: All Active Problems Cholelithiasis (Acute) Abnormal EKG (Acute) Vitamin B12 deficiency (Acute) Vitamin D deficiency (Acute) Sciatica (Acute) ADHD (Acute) PTSD (post-traumatic stress disorder) (Acute) Anxiety (Acute) Depression (Acute) Morbid obesity (Acute) Past Medical History Medical History Sciatica ADHD PTSD (post-traumatic stress disorder) Anxiety Depression Morbid obesity Family History Family History Mother Cancer, uterine Maternal Grandmother Cervical cancer Father FHx: prostate cancer Colon cancer Paternal Uncle Colon cancer Paternal Grandfather No problems noted. Surgical History Surgical History History of esophagogastroduodenoscopy (EGD) Tubal ligation status History of placement of ear tubes Hx of section History of Problems with Anesthesia: No Social History Social History Alcohol intake: never Patient Tobacco Use Status: Former Tobacco user Quit Date: 11 years Tobacco use type: Smokeless Tobacco Use of substances other than those prescribed or required for medical reasons: No Are you DNR?: No Advance Directives: No Advance Directives Information Provided: Yes Meds Allergies Allergy/AdvReac Type Severity Reaction Status Date / Time cefaclor [From [facility]] Allergy Intermediate Hives Verified 09/15/23 13:53 bandaids Allergy Hives Uncoded 09/17/23 12:41 silk tape Allergy Hives Uncoded 09/17/23 10:26 Home Medications ?Medication ?Instructions ?Recorded ?Confirmed ?Last Taken ?Type medroxyprogesterone 150 mg/mL 150 mg IM [id number] 07/09/23 09/15/23 Unknown History intramuscular suspension (Depo-Provera) nortriptyline 50 mg capsule 60 mg PO DAILY 07/09/23 09/15/23 09/01/23 History topiramate 200 mg tablet 350 mg PO DAILY 07/09/23 09/15/23 09/17/23 History escitalopram oxalate 10 mg tablet 10 mg PO DAILY 08/09/23 09/15/23 09/17/23 History hydroxyzine HCl 25 mg tablet 25 mg PO BEDTIME 08/09/23 09/15/23 Unknown History Exam Height,Weight and Vital Signs: Height 5 ft 1 in Weight 123.519 kg Pertinent Lab Results Pertinent Lab Results: Laboratory Tests 09/11/23 10:00 Blood Type A Positive Antibody Screen NEGATIVE Laboratory Tests 08/11/23 10:52 WBC 11.4 H Hgb 14.0 Hct 42.5 Plt Count 381 Sodium 142 Potassium 3.8 Chloride 114 H Carbon Dioxide 22 BUN 12 Creatinine 0.81 Narrative Narrative: EKG 08/2023 Vent. Rate : 096 BPM Atrial Rate : 096 BPM P-R Int : 146 ms QRS Dur : 072 ms QT Int : 386 ms P-R-T Axes : 030 039 017 degrees QTc Int : 487 ms Normal sinus rhythm Nonspecific ST and T wave abnormality Abnormal ECG No previous ECGs available ECHO 09/2023 Conclusions: - 1. Technically limited study 2. Low normal LV ejection fraction of 50-55% 3. Normal cardiac valvular Dopplers 4. Normal RV systolic pressure Exercise Stress 09/2023 Protocol: ORESTES Max HR: 169 BPM 92% of Pred: 182 BPM Max BP: 160/068 mmHG Max Work Load: 7.5 METS Exercise stress test exercise 6 min 29 sec of Orestes protocol achieving 87% MPHR, with moderate SOB, no chest discomfort, with isolated PVCs, with normotensive response to exercise, without EKG changes. Breathing returned back to normal with rest. Test reviewed with Dr. Watson Assessment and Plan Assessment Anesthesia Assessment: Chart Reviewed Final Anesthetic Review History of Problems with Anesthesia: No Documented by User: Yuliana Marin MD 09/17/23 13:54 HPI - Anesthesia Eval Consult details Narrative: 38yo F for Laparoscopic Cholecystectomy Patient states needed tube in nose when she had EGD 2 weeks ago Denies EDY but hypoxaemia during sleep PMFSH Active Problems Active Problems: All Active Problems Cholelithiasis (Acute) Abnormal EKG (Acute) Vitamin B12 deficiency (Acute) Vitamin D deficiency (Acute) Sciatica (Acute) ADHD (Acute) PTSD (post-traumatic stress disorder) (Acute) Anxiety (Acute) Depression (Acute) Morbid obesity (Acute) BMI 50.1 Asthma. Inhaler prn Snores but denies EDY. Was tested. Past Medical History Medical History Sciatica ADHD PTSD (post-traumatic stress disorder) Anxiety Depression Morbid obesity Family History Family History Mother Cancer, uterine Maternal Grandmother Cervical cancer Father FHx: prostate cancer Colon cancer Paternal Uncle Colon cancer Paternal Grandfather No problems noted. Family history of problems with anesthesia: No Surgical History Surgical History History of esophagogastroduodenoscopy (EGD) Tubal ligation status History of placement of ear tubes Hx of section History of Problems with Anesthesia: No Social History Social History Alcohol intake: never Patient Tobacco Use Status: Former Tobacco user Quit Date: 11 years Tobacco use type: Smokeless Tobacco Use of substances other than those prescribed or required for medical reasons: No Are you DNR?: No Advance Directives: No Advance Directives Information Provided: Yes Meds Allergies Allergy/AdvReac Type Severity Reaction Status Date / Time cefaclor [From [facility]] Allergy Intermediate Hives Verified 09/15/23 13:53 bandaids Allergy Hives Uncoded 09/17/23 12:41 silk tape Allergy Hives Uncoded 09/17/23 10:26 Home Medications ?Medication ?Instructions ?Recorded ?Confirmed ?Last Taken ?Type medroxyprogesterone 150 mg/mL 150 mg IM [id number] 07/09/23 09/15/23 Unknown History intramuscular suspension (Depo-Provera) nortriptyline 50 mg capsule 60 mg PO DAILY 07/09/23 09/15/23 09/01/23 History topiramate 200 mg tablet 350 mg PO DAILY 07/09/23 09/15/23 09/17/23 History escitalopram oxalate 10 mg tablet 10 mg PO DAILY 08/09/23 09/15/23 09/17/23 History hydroxyzine HCl 25 mg tablet 25 mg PO BEDTIME 08/09/23 09/15/23 Unknown History Exam Height,Weight and Vital Signs: Height 5 ft 1 in Weight 123.519 kg Vital Signs Temp Pulse Resp BP Pulse Ox O2 Del Method 09/17/23 10:58 96.9 F 93 18 123/80 95 Room Air Airway Mallampati Class: II TM Dist: >3cm Neck ROM: Full Loose/Missing/Broken Teeth: Yes (Very poor dentition. Front teeth broken. Many teeth missing ) Heart: RRR Lungs: CTAB Assessment and Plan Assessment Anesthesia Assessment: Anesthesia Plan Discussed and Chart Reviewed Final Anesthetic Review Family History of Problems with Anesthesia: No History of Problems with Anesthesia: No NPO: Yes ASA Class: III Final Preanesthetic Review: No Changes in Pt Med Stat, Meds/Allgs Chart Reviewed, Consent Obtained/Reviewed and Anes Risks/Benef Reviewed Patient Risk: Intermediate Procedure Risk: Intermediate Assessment/Block/Sedation in : Assess/Block/Sedation- Anesthetic Plan Anesthetic Plan: GA Disposition: Standard PACU
[2023-09-17] VITALS (16 sets, daily range): BP systolic 114–136; BP diastolic 67–89; PULSE 93–104; RESP 11–20; TEMP 36.1–37.1; O2SAT 91–97; BMI 50.1
[2023-09-17] MEDS: Lactated Ringers 1,000 ML 100 ML IVCONT ×2 (11:25→21:24)
--- NOTE | 2023-09-17 13:20 | MHC.SHP ---
Pre-Procedural Eval Section A - 24 Hr Update-Section A only Date of Service: 09/17/23 The patient is an INPATIENT: No The patient has been examined within 24 hours of the surgical procedure. The History & Physical has been completed within 30 days and I have reviewed it.: No Section B - Complete if H&P > 30 days Chief Complaint: Calculus of gallbladder without cholecystitis Relevant Family History (Specify if Yes): No Relevant Social History: None Present Medications: None Medical History: No relevant PMH History of Previous Operations: No relevant previous surgery Allergies: Allergies Allergy/AdvReac Type Severity Reaction Status Date / Time cefaclor [From Ceclor] Allergy Intermediate Hives Verified 09/15/23 13:53 bandaids Allergy Hives Uncoded 09/17/23 12:41 silk tape Allergy Hives Uncoded 09/17/23 10:26 Review of Systems Sugical H&P ROS: Negative: Constitution, Cardiovascular, Respiratory, Neurological, Psychiatric, Hem-Onc, Allergic/Immunologic, Gastrointestinal, Genitourinary, Musculoskeletal, Integumentary, Endocrine and Eyes/Ears/Nose/Throat Exam Surgical H&P Exam: Normal: HEENT, Normal: Heart, Normal: Lungs, Normal: Extremities, Normal: Abdomen, Normal: Skin and Normal: Neurological Plan Diagnosis/Plan: Unchanged I have reviewed the history and physical and performed a pertinent physical examination on my patient. No changes have occurred unless specified. Time Spent With Patient Time: Total time managing care of this patient today ____ minutes.
--- NOTE | 2023-09-17 13:22 | P.BOP_ITS ---
Brief Operative Note Date of Service: 09/17/23 Pre-op diagnosis: Cholelithiasis Post-op diagnosis: same Procedure: PROCEDURE DATE: 09/17/2023 PREOPERATIVE DIAGNOSIS: Symptomatic cholelithiasis, morbid obesity with a body mass index of 51 kg/sq. meters POSTOPERATIVE DIAGNOSIS: Same as above. PROCEDURE: Laparoscopic cholecystectomy Surgeon: Brandon Copeland M.D., Ph.D. and Andrae Rossi MD Attorney General: Aron Langley PA-C Anesthesia: General endotracheal anesthesia Estimated blood loss: Minimal FINDINGS AND PROCEDURE: OPERATIVE INDICATIONS: The patient is a 38 year old female known to me who was initially seen in my office for evaluation for refractory morbid obesity. During the preoperative workup, the patient was found to have cholelithiasis. I recommended cholecystectomy before the bariatric surgery due to the higher risks of acute cholecystitis after the bariatric surgery as a result of the rapid weight loss. Risks and complications of the surgery were discussed with the patient in advance, particularly the postoperative bleeding, infection, DVT or PE, bile leak, major bile duct injury that may require additional surgical intervention, cardiac, pulmonary or renal complications among others. The patient understood the risks and was in agreement with the plan. PROCEDURE: After informed consent was obtained by the patient, the patient was transferred to the Operating Room and was placed in the supine position. The patient was given preoperative antibiotics and after successful induction of general anesthesia, pneumatic compression devices were placed. The patient was then prepped and draped in the usual sterile manner and abdominal access was established with Jose technique. The abdomen was insufflated with C02 to a pressure of 15 mmHg. A 5 mm Versi-step port was placed, slightly to the right and superior from the umbilicus. The 5 mm camera was introduced. We inspected the area where the port had been placed and there was no injury. The patient was then placed initially in a steep reverse Trendelenburg position and three additional ports were placed, specifically a 12 mm Versi-step port just to the right of the midline below the xiphoid process and two 5 mm Versi-step ports at the right upper quadrant and right flank. At that point the patient was placed in a steep reverse Trendelenburg position tilted to the left side. The gallbladder was retracted cephalad and laterally. There was significant hepatomegaly. The gallbladder was enveloped in a large amount of fat, which made dissection difficult. The peritoneal attachments of the gallbladder at the triangle of Calot posteriorly and anteriorly were taken down. The infandibulum of the gallbladder was dissected off the fat. The cystic artery was identified first and was circumferentially dissected. During dissection between the cystic artery and the infandibulum of the gallbladder we encountered some bleeding from the gallbladder wall. That obscured the visibility but the bleeding was controlled with cautery and use of surgicel. As I attempted to continue the dissection between the two structures I injured the gallbladder wall with some spilage of bile and stones. At that point I asked Dr. Andrae Rossi to assist me and acted as co-surgeon. At that point, we confirmed that the injury was indeed in the gallbladder wall next to the cystic duct. I was able to complete the dissection around the cystic duct and we had enough length to place the clips proximally and distally. The cystic artery and duct were completely dissected free, skeletonized all the way to the infundibulum of the gallbladder . In a similar fashion I also cleaned the liver bed just behind the cystic artery to make sure there was no additional structures in this area. Once I confirmed that both structures were entering into the gallbladder and there were no other structures in the area, they were both clipped with two clips proximally, one distally and were cut in- between. I then using the electrocautery, I slowly took down the gallbladder from the liver bed. There was some bleeding from the liver parenchyma that was controlled with the cautery. After the gallbladder was completely detached from the liver bed, it was placed in an E ndoCatch bag and was removed without difficulty from the xiphoid port. We then inspected the clips at the cystic duct and artery and were both in place. There was no active bleeding from the liver bed. We thoroughly irrigated the right upper quadrant and we removed all fluid until clear. Two pieces of surgicel were left at the liver bed. At that point the patient was placed in supine position, I deflated the abdomen and I removed all ports under direct vision and no bleeding was noted from any of the port sites. The fascia of the 12 mm port was closed using a #1 Polysorb suture. 30cc Ropivacaine and 1% Lidocaine plain were used to infiltrate the fascial closure as well as all skin incisions. A total of 6ml Zynrelef was applied in the Jose wound. The wounds were irrigated with saline mixed with antibiotic solution and then the skin was closed with 4-0 Monocryl subcuticular sutures antibiotic- coated. Steri-strips and OpSites were used to cover all incisions. The patient extubated and was transferred in stable condition to the Recovery Room for further care. I was present and performed all steps of the procedure. Mr. Langley was the automotive service assistant. There were no residents to assist w ith this case. Brandon Copeland M.D., Ph.D., F.A.C.S. Surgeon: Alvin Copeland MD Anesthesia: GETA, local and other (TAP block and 6ml Zynrelef) Was an Attorney General used for this Procedure?: No Attorney General: Aron Langley Estimated blood loss (mL): 10 IV fluids (mL): 1,500 Urine output (mL): 0 (No Louis to record output) Pathology: other (Gallbladder) Condition: stable Disposition: PACU
[2023-09-17] MEDS: HYDROmorphone HCl 0.5 MG/0.5 ML SYRINGE IVPUSH ×2 (17:20→17:25)
[2023-09-17] MEDS: droPERidol 5 MG/2 ML VIAL 0.625 MG IVPUSH (18:24)
--- NOTE | 2023-09-17 18:44 | P.PNGS_ITS ---
Subjective Subjective Date of Service: 09/18/23 Interval history: Overall feels well. Some incisional pain. No nausea. Tolerating liquids Physical Exam 2 Vital Signs: Vital Signs: Last Vital Signs Temp 98.8 F 09/17/23 17:10 Pulse 98 09/17/23 18:25 Resp 13 09/17/23 18:25 BP 121/67 09/17/23 18:25 Pulse Ox 94 09/17/23 18:25 O2 Del Method Nasal Cannula wit h Capnography 09/17/23 18:25 O2 Flow Rate 4 09/17/23 18:25 BMI result Body Mass Index 50.1 GI: Inspection: Yes incision (clean, dry and intact) and Yes obesity P alpation (GI): Soft to palpation Extrem: Right lower extremity: normal to inspection (no calf tenderness) L eft lower extremity: normal to inspection (no calf tenderness) Objective Data Active Medications Escitalopram Oxalate (Escitalopram Oxalate 10 Mg Tablet) 10 mg PO DAILY [facility] Fentanyl (Fentanyl Citrate/Pf 100 Mcg/2 Ml Vial) 25 mcg IVPUSH Q5M PRN; Protocol PRN Reason: Pain, Moderate(Pain Scale 4-6) Stop: 09/17/23 19:56 Hydromorphone HCl (Hydromorphone Hcl 0.5 Mg/0.5 Ml Syringe) 0.5 mg IVPUSH Q5M PRN; Protocol PRN Reason: Pain, Severe (Pain Scale 7-10) Stop: 09/17/23 22:42 Last Admin: 09/17/23 17:25 Dose: 0.5 mg Documented By: MAVERICK Hydroxyzine HCl (Hydroxyzine Hcl 25 Mg Tablet) 25 mg PO BEDTIME [facility] Lactated Ringer's (Lr) 1,000 mls @ 100 mls/hr IVCONT .Q10H [facility] Last Admin: 09/17/23 11:25 Dose: 100 mls/hr Documented By: SHARI Lactated Ringer's (Lr) 1,000 mls @ 100 mls/hr IVCONT .Q10H [facility] Nortriptyline HCl 50 mg/ (Nortriptyline HCl 10 mg) 60 mg PO DAILY [facility] Topiramate (Topiramate 100 Mg Tablet) 300 mg PO DAILY [facility] Topiramate (Topiramate 25 Mg Tablet) 50 mg PO DAILY [facility] Labs 09/18/23 06:20 09/18/23 06:20 Procedures Date of Service Date of Service: 09/18/23 Progress Note: A&P Assessment and plan (1) Cholecystitis, acute with cholelithiasis: Status: Acute Plan Discharge home Discharge instructions discussed with patient Time Spent With Patient Time: Total time managing care of this patient today ____ minutes. Quality Stroke Does the patient have a stroke diagnosis?: No VTE Prior VTE?: No VTE Risk Level:: Surgical - moderate VTE Device Contraindication: N/A - Device Ordered VTE Drug Contraindication: Treatment Not Indicated
[2023-09-17 18:48] LABS: Hematocrit 41.2 % (37.0-47.0); Hemoglobin 13.1 g/dl (12.0-16.0)
[2023-09-17 18:54] LABS: Anion Gap 13 (12-20); Blood Urea Nitrogen 11 mg/dL (9-16); Calcium 8.7 mg/dL (8.4-10.2); Carbon Dioxide 20 mmol/L (22-29); Chloride 111 mmol/L (96-108); Estimated Glomerular Filt Rate > 60; Glucose Random 135 mg/dL (60-115); Potassium 4.2 mmol/L (3.3-5.1); Sodium 140 mmol/L (135-145)
[2023-09-17] MEDS: Acetaminophen 1,000 MG/100 ML PIGGYBACK 16.7 MG IV (21:25)
[2023-09-17] MEDS: Famotidine/PF 20 MG/2 ML VIAL IVPUSH (21:26)
[2023-09-17] MEDS: Topiramate 100 MG TABLET 300 MG PO (21:26)
[2023-09-17] MEDS: Topiramate 25 MG TABLET 50 MG PO (21:26)
[2023-09-17] MEDS: hydrOXYzine HCL 25 MG TABLET PO (21:27)
[2023-09-18 00:49] VITALS: BMI 52.7
[2023-09-18] MEDS: Acetaminophen 1,000 MG/100 ML PIGGYBACK 16.7 MG IV ×2 (02:33→07:51)
[2023-09-18 02:35] VITALS: RESP 18
[2023-09-18] MEDS: HYDROmorphone HCl 0.5 MG/0.5 ML SYRINGE 0.25 MG IVPUSH ×2 (02:35→07:53)
[2023-09-18 03:21] VITALS: BP 100/64; PULSE 92; RESP 20; TEMP 36.4; O2SAT 94
[2023-09-18 07:05] LABS: Basophils Percent Auto 0.2 % (0-2); Hematocrit 37.8 % (37.0-47.0); Hemoglobin 12.6 g/dl (12.0-16.0); Imm Gran Abs Auto 0.14 X10*3/uL (0.00-0.03); Imm Gran Pct Auto 1.1 % (0.0-0.4); Lymphocytes Absolute Auto 1.6 X10*3/uL (1.2-4.9); MANUAL DIFF FLAG SCAN; Mean Corpuscular HGB Conc 33.3 g/dl (31.0-35.0); Mean Corpuscular Hemoglobin 30.1 pg (27.0-33.0); Mean Corpuscular Volume 90.4 fL (80.0-98.0); Monocytes Absolute Auto 0.6 X10*3/uL (0.1-1.2); Monocytes Percent Auto 4.6 % (2-11); Neutrophils Absolute Auto 10.9 x10*3/uL (2.0-8.3); Neutrophils Percent Auto 82.1 % (45-73); PLT CLUMP 1; Red Blood Count 4.18 X10*6/uL (4.20-5.50); Red Cell Distribution Width 13.8 % (11.0-16.0); SCAN SMEAR FLAG 1; White Blood Count 13.3 X10*3/uL (4.8-10.8)
[2023-09-18 07:07] LABS: Alanine Aminotransferase 46 U/L (0-31); Albumin Level 3.7 g/dL (3.5-5.0); Alkaline Phosphatase 86 U/L (39-117); Anion Gap 16 (12-20); Aspartate Amino Transferase 29 U/L (5-31); Bilirubin Total 0.3 mg/dL (0.0-1.0); Blood Urea Nitrogen 10 mg/dL (9-16); Calcium 8.9 mg/dL (8.4-10.2); Carbon Dioxide 15 mmol/L (22-29); Chloride 111 mmol/L (96-108); Creatinine Clr Calc Pharmacy 132.5; Estimated Glomerular Filt Rate > 60; Glucose Random 106 mg/dL (60-115); Potassium 4.2 mmol/L (3.3-5.1); Sodium 138 mmol/L (135-145); Total Protein 7.1 g/dL (6.5-8.0)
[2023-09-18 07:16] VITALS: BP 129/72; PULSE 92; RESP 18; TEMP 36.2; O2SAT 95
--- NOTE | 2023-09-18 07:25 | PHA.MEDREC ---
Pharmacy Consult ? Medication Reconciliation Pharmacy has completed the medication reconciliation.
[2023-09-18 07:46] LABS: Platelet Count 337 X10*3/uL (160-400); SLIDE REVIEW VERIFIED
[2023-09-18] MEDS: Escitalopram Oxalate 10 MG TABLET PO (07:50)
[2023-09-18] MEDS: Famotidine/PF 20 MG/2 ML VIAL IVPUSH (07:52)
--- NOTE | 2023-09-18 08:59 | HO.POSTANES ---
Post Anesthesia Evaluation Post Anesthesia Evaluation Date of Service: 09/18/23 Vital Signs: Vital Signs Temp Pulse Resp BP Pulse Ox O2 Del Method O2 Flow Rate 09/18/23 07:16 97.2 F 92 18 129/72 95 Room Air 09/18/23 03:21 97.5 F 92 20 100/64 94 Nasal Cannula 4 09/18/23 02:35 18 09/17/23 23:19 97.5 F 93 20 134/75 91 L Anesthesia: General Endotracheal-GETA Mental Status: Awake Pain Control: Satisfactory Nausea/Vomiting: None Hydration: Adequate Anesthesia-Related Issues: No Anes. Related Issues
--- NOTE | 2023-09-18 09:19 | MHC.CM.NN ---
EMR REVIEWED, PT S/P LESLIE ASIF CM MET W/PT WHO REPORTS SHE LIVES W/HER AND 2 KIDS, PT IS INDEP W/ALL CARE, DENIES USE OF DME/SERVICES AND GOAL FOR DC IS HOME, DC ORDER IN PLACE. PCP VERIFIES JEFF YATES OF [facility], PT EDUCATED ON AND COMPLETED A HCP NAMING HER QASIM ZAMARRIPA [phone] HER [facility] AND HER MOTHER JOHN BONILLA [phone] HER ALTERNATE, COPY UPLOADED TO [facility] AND PLACED IN CHART. PT DISCHARGING TODAY NO SERVICES W/PT'S FOR TRANSPORT
--- NOTE | 2024-01-14 12:38 | PM.DS ---
DS: Providers Provider Date of Service: 09/18/23 Date of admission: 09/17/23 17:14 Primary care physician: Unknown Physician DS: Diagnosis Discharge Diagnosis (1) Cholecystitis, acute with cholelithiasis: Status: Inactive DS: Summary Hospital Course Hospital Course: The patient is a 38 year old female known to the bariatric surgery office who was initially seen for evaluation for refractory morbid obesity. During the preoperative workup, the patient was found to have cholelithiasis. Cholecystectomy before the bariatric surgery was recommended due to the higher risks of acute cholecystitis after the bariatric surgery as a result of the rapid weight loss. On 09/17/2023, pt was electively brought to the OR with Dr. Copeland for laparoscopic cholecystectomy. She tolerated the procedure well. On POD1, she was able to ambulate, tolerate PO intake, and pain was controlled on PO meds. She was able to be discharged to home on POD1. Time Attestation Discharge Coordination Time (in mins): 30 Quality: Safe Use of Opioids Does Pt have an Active Cancer Diagnosis on the Problem List?: No Quality: Stroke Does the patient have a stroke diagnosis?: No Physical Exam Vital Signs: Vital Signs: Last Vital Signs Temp 97.2 F 09/18/23 07:16 Pulse 92 09/18/23 07:16 Resp 18 09/18/23 07:16 BP 129/72 09/18/23 07:16 Pulse Ox 95 09/18/23 07:16 O2 Del Method Room Air 09/18/23 07:16 O2 Flow Rate 4 09/18/23 03:21 Oxygen Flow Rate 4 09/17/23 18:20 BMI result Body Mass Index 52.7 DS: Data Data Completed and Pending Completed studies during hospitalization [Text1]: Pending at discharge 09/17/23 16:44 Surgical [PTH] Routine Procedures Excision of Stomach, Percutaneous Endoscopic Approach, Vertical (11/11/23) Release Peritoneum, Percutaneous Endoscopic Approach (11/11/23) Discharge Plan Discharge Patient Disposition: Home, Self-Care Referrals: Physician,Unknown J [Primary Care Provider] - 1 Week Discharge Medications: Continued nortriptyline 10 mg capsule 10 mg PO BEDTIME nortriptyline 50 mg capsule 50 mg PO BEDTIME topiramate 200 mg tablet 200 mg PO BEDTIME Rx Instructions: For a total of 350mg topiramate 50 mg tablet 150 mg PO BEDTIME Patient Comments: total dose of 350 mg at bedtime Rx Instructions: For a total of 350mg escitalopram oxalate 10 mg tablet 10 mg PO DAILY hydroxyzine HCl 25 mg tablet 25 mg PO BID medroxyprogesterone [Depo-Provera] 150 mg/mL suspension 150 mg IM [id number] No Action topiramate 50 mg Tablet 50 mg PO DAILY pantoprazole 40 mg tablet,delayed release (DR/EC) 40 mg PO DAILY@0630 inulin 2 gram tablet,chewable 2 g PO DAILY Qty: 90 3RF docusate sodium [Colace] 100 mg capsule 100 mg PO BID Qty: 90 1RF Discharge Orders: Discharge Order (Routine); Ordered 09/18/23 Ordered By: Alvin Copeland Activity on Discharge: As tolerated Print Language: [place] Activity Restrictions/Additional Instructions: 1) Stay on a clear liquid diet that can include protein shakes until you have a bowel movement. Once you have a bowel movement you may advance your diet to your regular diet plan. 2, May shower 3) Leave dressings in place. They will be removed at your office appointment 4) Avoid heavy lifting for 3 weeks 5) Take Tylenol 500mg every 4 hours, around the clock for the next 3-4 days. If pain has improved you may slowly reduce its frequency 6) Avoid aspirin, Motrin, Aleve, Advil, Naproxyn, Ibuprofen for 2 weeks 7) Call Dr. Copeland at [phone] for fever >101F, persistent nausea, vomiting, right upper quadrant abdominal pain or right shoulder pain, yellow skin or eyes. shortness of breath, calf pain. Care Plan Goals: Resume diet. Increase physcical activity. Resume weight loss process Health Concerns: none at this time Plan of Treatment: 1) Stay on a clear liquid diet that can include protein shakes until you have a bowel movement. Once you have a bowel movement you may advance your diet to your regular diet plan. 2, May shower 3) Leave dressings in place. They will be removed at your office appointment 4) Avoid heavy lifting for 3 weeks 5) Take Tylenol 500mg every 4 hours, around the clock for the next 3-4 days. If pain has improved you may slowly reduce its frequency 6) Avoid aspirin, Motrin, Aleve, Advil, Naproxyn, Ibuprofen for 2 weeks 7) Call Dr. Copeland at [phone] for fever >101F, persistent nausea, vomiting, right upper quadrant abdominal pain or right shoulder pain, yellow skin or eyes. shortness of breath, calf pain. Assessment: Patient was examined and she can be discharged Discharge Date/Time: 09/18/23 10:28
== END 2023-09-18 10:28 | disposition home or self-care (01) ==
LOC: HO.EDOVER 17:31 → HO.IMC 18:23
PROVIDERS: Physician Assistant Surgical; Admitting Provider Surgery; Visit Provider Surgery
PROC: 0FT44ZZ Resection of Gallbladder, Percutaneous Endoscopic Approach (ICD-10-PCS; CPT 47562; principal; 2023-09-17 12:40)
DX: K80.00 Calculus of gallbladder with acute cholecystitis without obstruction (principal); E66.01 Morbid (severe) obesity due to excess calories; Z68.43 Body mass index [BMI] 50.0-59.9, adult
CPT/HCPCS: 47562; 36415; 80048; 80053; 85014; 85018; 85025; 86850; 86900; 86901; 88304; 96365; 96366; 96375; 96376; C9088; J0131; J0690; J1100; J1170; J1790; J1956; J2250; J2405; J2704; J2795; J3010; J7120

== ENCOUNTER → 2023-09-17 17:14 | Outpatient (BNV) | payer OTHER, SELFPAY | PROVIDERS: Admitting Provider Physician Assistant Surgical; Visit Provider Surgery | DX: K80.00 Calculus of gallbladder with acute cholecystitis without obstruction (principal) | CPT/HCPCS: 47562; 99024 ==

== ENCOUNTER 2023-09-26 14:44 | Outpatient (AMB) | payer OTHER, SELFPAY ==
--- NOTE | 2023-09-26 14:47 | A.OFFVIS_ITS ---
VS Expanded 09/26/23 14:55 BP 132/92 H Blood Pressure Location Rt brachial Blood Pressure Position Sitting Pulse 106 H Pulse Source Pulse Oximeter Temp 97.5 F Temperature Source Temporal Artery Scan Pulse Oximetry 98 Oxygen Delivery Method Room Air Height 5 ft 1 in Weight 264 lb BMI 49.9 Body Fat % 37.8 Body Fat Mass 124.4 Fat Free Mass 139.6 Visceral Fat Rating 16.0 Body Water % 37.8 Body Water Mass 99.8 Muscle Mass/Score 132.4 Basal Metabolic Rate/Score 1,992 Intake Visit Reasons: (OV) s/p Lap Jenelle 09/17/23 Allergies cefaclor [From Ceclor] Allergy (Intermediate, Verified 09/26/23 15:03) Hives bandaids Allergy (Uncoded 09/26/23 15:03) Hives silk tape Allergy (Uncoded 09/26/23 15:03) Hives HPI Comments Details: Patient is a 30-year-old female who returns to the office today in follow-up. She is status post laparoscopic cholecystectomy on 09/17/2023. She did go to the [facility] Emergency room on 09/24/2023 with complaints of abdominal pain. Per their records, she did have steak for dinner. CT scan was unreve aling. She was treated with analgesia and discharged home without admission. She returns to the office today in follow-up. She states that she does have midline incisional pain that is slowly improving. [facility] Medical History Sciatica ADHD PTSD (post-traumatic stress disorder) Anxiety Depression Morbid obesity Surgical History History of esophagogastroduodenoscopy (EGD) Tubal ligation status History of placement of ear tubes Hx of section Family History Mother Cancer, uterine Maternal Grandmother Cervical cancer Father FHx: prostate cancer Colon cancer Paternal Uncle Colon cancer Paternal Grandfather No problems noted. Social History Household Members: Spouse and Children Housing: House Alcohol intake: never Comment: comfortable Patient Tobacco Use Status: Former Tobacco user Quit Date: 11 years Tobacco use type: Smokeless Tobacco service: No Physical Exam Vital Signs: Last Vital Signs Temp 97.5 F 09/26/23 14:55 Pulse 106 H 09/26/23 14:55 BP 132/92 H 09/26/23 14:55 Pulse Ox 98 09/26/23 14:55 Oxygen Delivery Method Room Air 09/26/23 14:55 BMI result Body Mass Index 49.9 GI Inspection: Yes incision (Clean, dry, intact.) Assessment & Plan Assessment & Plan (1) S/P laparoscopic cholecystectomy: Code(s): Z90.49 - Acquired absence of other specified parts of digestive tract Category: Surgical Plan: Patient is following the recommended meal plan by Dr. Copeland. She continues with the use of her abdominal binder. She will follow up with him for continued preoperative surgical weight loss planning with an ultimate goal of laparoscopic sleeve gastrectomy.
[2023-09-26 14:55] VITALS: BP 132/92; PULSE 106; TEMP 36.4; O2SAT 98; BMI 49.9
== END 2023-09-26 15:11 | disposition home or self-care (01) ==
PROVIDERS: Visit Provider Physician Assistant Surgical
DX: Z90.49 Acquired absence of other specified parts of digestive tract (principal)
CPT/HCPCS: 99024

== ENCOUNTER → 2023-09-26 14:44 | Outpatient (BNVA) | payer OTHER, SELFPAY | PROVIDERS: Visit Provider Physician Assistant Surgical | DX: Z90.49 Acquired absence of other specified parts of digestive tract (principal) | CPT/HCPCS: 99212 ==

== ENCOUNTER 2023-10-31 09:28 | Outpatient (AMB) | payer OTHER, SELFPAY ==
--- NOTE | 2023-10-31 09:39 | MHC.OFFVISWM ---
Intake Visit Reasons: TV Pre Op LSG 11/11/23 Allergies cefaclor [From Ceclor] Allergy (Intermediate, Verified 10/31/23 09:39) Hives bandaids Allergy (Uncoded 10/31/23 09:39) Hives silk tape Allergy (Uncoded 10/31/23 09:39) Hives Medication List - Last Reconciled 10/31/23 by Alvin Copeland MD cholecalciferol (vitamin D3) 125 mcg PO DAILY escitalopram oxalate 10 mg PO DAILY hydroxyzine HCl 25 mg PO BEDTIME mecobalamin (vitamin B12) 1,000 mcg sublingual DAILY medroxyprogesterone (Depo-Provera) 150 mg IM [id number] nortriptyline 50 mg PO BEDTIME nortriptyline 10 mg PO BEDTIME ondansetron 4 mg PO Q12H ondansetron 4 mg PO Q12H oxycodone 5 mg PO QID PRN pantoprazole 40 mg PO DAILY polyethylene glycol 3350 17 grams PO DAILY sucralfate 10 mL PO BID topiramate 200 mg PO BEDTIME topiramate 150 mg PO BEDTIME HPI HPI TV Pre Op LSG 11/11/23: Details: Start time: 9.31am, End time: 9.56am ?I spent 20 minutes speaking with the patient on the phone plus an additional 5 minutes reviewing and updating records for a total of 25 minutes HPI Comments Details: Overall weight loss: 25.1lbs, or 8.87% TBWL Is doing 2 premade Premier shakes (mix 5.5oz in 3 oz oatmilk), 2 Celebrate bars, and one meal (10 forks of protein and 5 forks of vegetables) Exercise: is doing treadmill or bike for 400 calories x5/week PFSH Medical History Sciatica ADHD PTSD (post-traumatic stress disorder) Anxiety Depression Morbid obesity Surgical History History of esophagogastroduodenoscopy (EGD) Tubal ligation status History of placement of ear tubes Hx of section Family History Mother Cancer, uterine Maternal Grandmother Cervical cancer Father FHx: prostate cancer Colon cancer Paternal Uncle Colon cancer Paternal Grandfather No problems noted. Social History Household Members: Spouse and Children Housing: House Alcohol intake: never Comment: comfortable Patient Tobacco Use Status: Former Tobacco user Tobacco use type: Smokeless Tobacco service: No Telehealth Telehealth Telehealth Platform: Telephone Location of provider rendering services: practice address Location of patient: address on file Patient Identification confirmed using: Name, : Yes Telehealth method: voice only Patient verbally consented to treatment: Yes Patient verbally consented to billing insurance company: Yes Patient informed of any privacy concerns related to visit: Yes Minutes spent on Phone/Video with Pt.: 25 Assessment & Plan Assessment & Plan (1) Morbid obesity: Code(s): E66.01 - Morbid (severe) obesity due to excess calories Category: Medical Plan: 1. Plan for lap sleeve gastrectomy including upper GI endoscopy. All tests has been completed and reviewed and the patient is cleared for the surgery. ?If diaphragmatic or ventral hernias are present at time of surgery, these will be repaired laparoscopically as well. Risks and complications were discussed in detail including possible conversion to an open procedure, anastomotic leak, bleeding requiring transfusion, small bowel obstruction, , DVT and pulmonary embolism, cardiac, or pulmonary complications, as skilled nursing complications such as anastomotic ulcer, insufficient weight loss and vitamin deficiencies. I emphasized the importance of close follow-up, adherence to instructions and good communication. So far she has proven to be an excellent communicator and very compliant with all our directions accomplishing a great weight loss. I believe that she is an excellent candidate and she is ready. 2. Preop prescriptions were provided and explained the purpose of each one. Need to be purchased preop. Start Pantoprazole now as you get it from the pharmacy, 1 pill per day. Sucralfate and Zofran are for after surgery as needed. 3. Bowel prep: please do 7 packets ?of Miralax mixing each one with a an 8oz glass of water, crystal light, gatorade zero, or propel ?on 11/09/23 and the same amount on 11/10/23. The Miralax you begin with one packet at a time in 8oz water or crystal light, gatorade zero, or propel ?as early in the day as you can and you do them back to back until you finish them. Continue the protein shakes during ?the bowel prep. 4. Needs to purchase 1oz medicine cups . 5. Needs to purchase Children's liquid Tylenol for postop pain control. 6. Avoid aspirin, motrin, Advil, Aleve, Ibuprofen, Naproxyn. Tylenol is OK. 7. She needs to purchase the Celebrate 4:1 protein shakes from the hospital's gift shop. 8. Will do basic preop blood work-up any day between Friday11/03/23 and Friday11/07/23 fasting for 12 hours and is scheduled to see the Anesthesiologist prior to the day of surgery. 9. Importance of adherence to postop folllow-up and recommendations was underscored and she understands that. 10. Stop food and bars as of Friday11/02/23 and continue with 5 premade Premier protein shakes (5.5oz of Premier mixed in 3oz almond milk) at 8am-10am, 11am-1pm, 2pm-4pm, 5pm-7pm and at 8pm-10pm 11. No soups, broths or V8 12. The patient's?medical?history has been reviewed and they are considered low risk for post op DVT and therefore DVT prophylaxis is not considered necessary. Travel after surgery was reviewed. The patient has not disclosed any travel plans during the first 30 days after surgery and they have been advised that within the first 30 days after surgery any bus, plane, train or car travel over 2 hours in duration is contraindicated due to the possibility of developing blood clots from immobility. Any travel, needs to include periods of ambulation of 10 minutes in duration every 2 hours.? Patient was instructed to discuss any plans for travel during this period with their bariatric surgeon.? 13. Please take at the day of surgery the following medications: NONE 14. Stop any control pills and don't use them for one month after surgery 15. Absolutely no smoking or vaping, or marijuana until the surgery and for at least the first 4 weeks. Only nicotine patches are allowed. 16. Send me weight measurements on Friday11/02/23 and 11/09/23 and then on Friday11/11/23, the day of surgery before you go to the hospital. 17. Avoid any steroids by mouth for any reason. Let me know if someone prescribes them to you 18. These instructions supersede anything else you read in the handbook, anything you watched in videos or classes or you were told by any other provider. If there is any conflict, you follow the above instructions and nothing else. Orders: Orders Type and Screen Today E66.01 - Morbid (severe) obesity due to excess calories Partial Thromboplastin Time Today E66.01 - Morbid (severe) obesity due to excess calories C Reactive Protein Today E66.01 - Morbid (severe) obesity due to excess calories Lipid Panel Today E66.01 - Morbid (severe) obesity due to excess calories Insulin Today E66.01 - Morbid (severe) obesity due to excess calories Comprehensive Met. Panel Today E66.01 - Morbid (severe) obesity due to excess calories TSH reflex Free T4 Today E66.01 - Morbid (severe) obesity due to excess calories Prothrombin Time INR Today E66.01 - Morbid (severe) obesity due to excess calories Hemoglobin A1c Today E66.01 - Morbid (severe) obesity due to excess calories Complete Blood Count Auto Diff Today E66.01 - Morbid (severe) obesity due to excess calories Medications: New sucralfate 10 mL PO BID 600 mL 2RF K21.9 - Gastro-esophageal reflux disease without esophagitis pantoprazole 40 mg PO DAILY 90 tabs 0RF K21.9 - Gastro-esophageal reflux disease without esophagitis ondansetron 4 mg PO Q12H 20 tabs 0RF nausea and vomiting R11.0 - Nausea polyethylene glycol 3350 Mix each measuring cup with 8oz of water, Crystal light, or Gatorade zero, or Propel and do 7 measuring cups on 11/09/23 and another 7 measuring cups on 11/10/23 17 grams PO DAILY 238 grams 0RF Z01.818 - Encounter for other preprocedural examination
== END 2023-10-31 09:58 | disposition home or self-care (01) ==
LOC: HO.HBS 09:28
PROVIDERS: Visit Provider Surgery
DX: E66.01 Morbid (severe) obesity due to excess calories (principal); Z68.42 Body mass index [BMI] 45.0-49.9, adult
CPT/HCPCS: 99499

== ENCOUNTER → 2023-10-31 09:28 | Outpatient (BNVA) | payer OTHER, SELFPAY | PROVIDERS: Visit Provider Surgery ==

== ENCOUNTER → 2023-11-03 08:12 | Outpatient (BNVA) | payer OTHER, SELFPAY | PROVIDERS: Visit Provider Physician Assistant Surgical ==

== ENCOUNTER 2023-11-11 05:51 | Inpatient (IN) | payer OTHER, SELFPAY ==
[2023-11-03 08:10] LABS: MANUAL DIFF FLAG NO
[2023-11-03 08:30] LABS: Basophils Percent Auto 0.4 % (0-2); Eosinophils Absolute Auto 0.2 X10*3/uL (0.0-0.4); Eosinophils Percent Auto 1.9 % (0-4); Hematocrit 42.3 % (37.0-47.0); Hemoglobin 13.9 g/dl (12.0-16.0); Imm Gran Abs Auto 0.04 X10*3/uL (0.00-0.03); Imm Gran Pct Auto 0.4 % (0.0-0.4); Lymphocytes Absolute Auto 2.8 X10*3/uL (1.2-4.9); Lymphocytes Percent Auto 27.8 % (20-40); Mean Corpuscular HGB Conc 32.9 g/dl (31.0-35.0); Mean Corpuscular Hemoglobin 29.4 pg (27.0-33.0); Mean Corpuscular Volume 89.6 fL (80.0-98.0); Mean Platelet Volume 9.1 fL (9.4-12.3); Monocytes Absolute Auto 0.6 X10*3/uL (0.1-1.2); Monocytes Percent Auto 5.9 % (2-11); Neutrophils Absolute Auto 6.4 x10*3/uL (2.0-8.3); Neutrophils Percent Auto 63.6 % (45-73); Platelet Count 349 X10*3/uL (160-400); Red Blood Count 4.72 X10*6/uL (4.20-5.50); Red Cell Distribution Width 13.6 % (11.0-16.0); White Blood Count 10.1 X10*3/uL (4.8-10.8)
[2023-11-03 08:32] LABS: Estimated Average Glucose 100 mg/dL; Hemoglobin A1c % 5.1 % (<6.0)
[2023-11-03 08:41] LABS: Partial Thromboplastin Time 32.6 SEC (26.0-36.8); Prothrombin Time 12.7 SEC (11.1-13.3)
[2023-11-03 09:20] LABS: Alanine Aminotransferase 29 U/L (0-31); Alkaline Phosphatase 94 U/L (39-117); Anion Gap 13 (12-20); Aspartate Amino Transferase 16 U/L (5-31); Bilirubin Total 0.3 mg/dL (0.0-1.0); Blood Urea Nitrogen 12 mg/dL (9-16); Calcium 9.2 mg/dL (8.4-10.2); Carbon Dioxide 20 mmol/L (22-29); Chloride 112 mmol/L (96-108); Cholesterol 117 mg/dL (<200); Estimated Glomerular Filt Rate > 60; Glucose Random 90 mg/dL (60-115); HDL Cholesterol 37 mg/dL (>40); Insulin 24 uU/mL (2-29); LDL Cholesterol Calculated 65 mg/dL (<100); Potassium 3.6 mmol/L (3.3-5.1); Sodium 141 mmol/L (135-145); TSH reflex Free T4 0.66 uIU/mL (0.32-4.0); Total Protein 7.4 g/dL (6.5-8.0); Triglycerides 76 mg/dL (<150)
[2023-11-03 12:07] VITALS: BMI 48.0
--- NOTE | 2023-11-10 08:21 | P.CONAN_ITS ---
Documented by User: Emily Lake NP 11/10/23 08:22 HPI - Anesthesia Eval Consult details Narrative: 38yo F for Gastrectomy Sleeve,EGD,possible diaphragmatic hernia,possible ventral hernia,possible open PMFSH Active Problems Active Problems: All Active Problems S/P laparoscopic cholecystectomy (Acute) Cholecystitis, acute with cholelithiasis (Acute) Cholelithiasis (Acute) Abnormal EKG (Acute) Vitamin B12 deficiency (Acute) Vitamin D deficiency (Acute) Sciatica (Acute) ADHD (Acute) PTSD (post-traumatic stress disorder) (Acute) Anxiety (Acute) Depression (Acute) Morbid obesity (Acute) Past Medical History Medical History GERD (gastroesophageal reflux disease) Asthma Sciatica ADHD PTSD (post-traumatic stress disorder) Anxiety Depression Morbid obesity Family History Family History Mother Cancer, uterine Maternal Grandmother Cervical cancer Father FHx: prostate cancer Colon cancer Paternal Uncle Colon cancer Paternal Grandfather No problems noted. Family history of problems with anesthesia: No Surgical History Surgical History Hx laparoscopic cholecystectomy History of esophagogastroduodenoscopy (EGD) Tubal ligation status History of placement of ear tubes Hx of section History of Problems with Anesthesia: No Social History Social History Household Members: Spouse and Children Housing: House Are you a primary home care and home health aides teacher to a significant other at home: No Do you presently have visiting nurse or other home services: No Alcohol intake: never Comment: comfortable Patient Tobacco Use Status: Former Tobacco user Tobacco use type: Smokeless Tobacco Use of substances other than those prescribed or required for medical reasons: No Have you been hit, kicked, punched, or otherwise hurt by someone within the past year? If so, by whom?: No Are you DNR?: No Advance Directives: No Advance Directives on File: No Recently lost weight without trying: No Eating poorly because of decreased appetite: No Nutrition Risks: No Nutritional Risk Patient : No : No Poor oral hygiene: No service: No Meds Allergies Allergy/AdvReac Type Severity Reaction Status Date / Time cefaclor [From [facility]] Allergy Intermediate Hives Verified 11/11/23 06:26 bandaids Allergy Hives Uncoded 11/11/23 06:26 silk tape Allergy Hives Uncoded 11/11/23 06:26 Home Medications ?Medication ?Instructions ?Recorded ?Confirmed ?Last Taken ?Type medroxyprogesterone 150 mg/mL 150 mg IM [id number] 07/09/23 11/03/23 Unknown History intramuscular suspension (Depo-Provera) escitalopram oxalate 10 mg tablet 10 mg PO DAILY 08/09/23 11/11/23 11/10/23 History hydroxyzine HCl 25 mg tablet 25 mg PO BID 08/09/23 11/11/23 11/10/23 History nortriptyline 10 mg capsule 10 mg PO BEDTIME 09/17/23 11/11/23 11/10/23 History nortriptyline 50 mg capsule 50 mg PO BEDTIME 09/17/23 11/11/23 11/10/23 History topiramate 200 mg tablet 200 mg PO BEDTIME 09/17/23 11/11/23 11/10/23 History topiramate 50 mg tablet 150 mg PO BEDTIME 09/17/23 11/11/23 11/10/23 History topiramate 50 mg tablet 50 mg PO QAM 11/03/23 11/11/23 11/10/23 History Exam Height,Weight and Vital Signs: Height 5 ft 1 in Weight 115.212 kg Pertinent Lab Results Pertinent Lab Results: Laboratory Tests 11/03/23 11/03/23 07:59 08:08 WBC 10.1 RBC 4.72 Hgb 13.9 Hct 42.3 MCV 89.6 MCH 29.4 MCHC 32.9 RDW 13.6 Plt Count 349 MPV 9.1 L Immature Gran % (Auto) 0.4 Neut % (Auto) 63.6 Lymph % (Auto) 27.8 [place] % (Auto) 5.9 Eos % (Auto) 1.9 Baso % (Auto) 0.4 Lymph # (Auto) 2.8 [place] # (Auto) 0.6 Eos # (Auto) 0.2 Baso # (Auto) 0.0 Abs Immat Gran (auto) 0.04 H Absolute Neuts (auto) 6.4 Absolute Nucleated RBC 0.000 Nucleated RBC % (auto) 0.0 PT 12.7 INR 1.0 APTT 32.6 Sodium 141 Potassium 3.6 Chloride 112 H Carbon Dioxide 20 L Anion Gap 13 BUN 12 Creatinine 0.82 Estim Creat Clear Calc TNP Estimated GFR > 60 Random Glucose 90 Estimat Average Glucose 100 Hemoglobin A1c % 5.1 Insulin Level 24 Calcium 9.2 Total Bilirubin 0.3 AST 16 ALT 29 Alkaline Phosphatase 94 C-Reactive Protein 2.20 H Total Protein 7.4 Albumin 4.0 Triglycerides 76 Cholesterol 117 LDL Cholesterol, Calc 65 HDL Cholesterol 37 L TSH 0.66 Blood Type A Positive Antibody Screen NEGATIVE Narrative Narrative: EKG 08/2023 Vent. Rate : 096 BPM Atrial Rate : 096 BPM P-R Int : 146 ms QRS Dur : 072 ms QT Int : 386 ms P-R-T Axes : 030 039 017 degrees QTc Int : 487 ms Normal sinus rhythm Nonspecific ST and T wave abnormality Abnormal ECG No previous ECGs available ECHO 09/2023 Conclusions: - 1. Technically limited study 2. Low normal LV ejection fraction of 50-55% 3. Normal cardiac valvular Dopplers 4. Normal RV systolic pressure Exercise Stress 09/2023 Protocol: ORESTES Max HR: 169 BPM 92% of Pred: 182 BPM Max BP: 160/068 mmHG Max Work Load: 7.5 METS Exercise stress test exercise 6 min 29 sec of Orestes protocol achieving 87% MPHR, with moderate SOB, no chest discomfort, with isolated PVCs, with normotensive response to exercise, without EKG changes. Breathing returned back to normal with rest. Test reviewed with Dr. Watson Assessment and Plan Assessment Anesthesia Assessment: Chart Reviewed Final Anesthetic Review Family History of Problems with Anesthesia: No History of Problems with Anesthesia: No Documented by User: Padma Morrow MD 11/11/23 07:34 [facility] Past Medical History Medical History GERD (gastroesophageal reflux disease) Asthma Sciatica ADHD PTSD (post-traumatic stress disorder) Anxiety Depression Morbid obesity Family History Family History Mother Cancer, uterine Maternal Grandmother Cervical cancer Father FHx: prostate cancer Colon cancer Paternal Uncle Colon cancer Paternal Grandfather No problems noted. Surgical History Surgical History Hx laparoscopic cholecystectomy History of esophagogastroduodenoscopy (EGD) Tubal ligation status History of placement of ear tubes Hx of section Social History Social History Household Members: Spouse and Children Housing: House Are you a primary home care and home health aides teacher to a significant other at home: No Do you presently have visiting nurse or other home services: No Alcohol intake: never Comment: comfortable Patient Tobacco Use Status: Former Tobacco user Tobacco use type: Smokeless Tobacco Use of substances other than those prescribed or required for medical reasons: No Have you been hit, kicked, punched, or otherwise hurt by someone within the past year? If so, by whom?: No Are you DNR?: No Advance Directives: No Advance Directives on File: No Recently lost weight without trying: No Eating poorly because of decreased appetite: No Nutrition Risks: No Nutritional Risk Patient : No : No Poor oral hygiene: No service: No Meds Allergies Allergy/AdvReac Type Severity Reaction Status Date / Time cefaclor [From Ceclor] Allergy Intermediate Hives Verified 11/11/23 06:26 bandaids Allergy Hives Uncoded 11/11/23 06:26 silk tape Allergy Hives Uncoded 11/11/23 06:26 Home Medications ?Medication ?Instructions ?Recorded ?Confirmed ?Last Taken ?Type medroxyprogesterone 150 mg/mL 150 mg IM [id number] 07/09/23 11/03/23 Unknown History intramuscular suspension (Depo-Provera) escitalopram oxalate 10 mg tablet 10 mg PO DAILY 08/09/23 11/11/23 11/10/23 History hydroxyzine HCl 25 mg tablet 25 mg PO BID 08/09/23 11/11/23 11/10/23 History nortriptyline 10 mg capsule 10 mg PO BEDTIME 05/11/11/23 11/10/23 History nortriptyline 50 mg capsule 50 mg PO BEDTIME 09/17/23 11/11/23 11/10/23 History topiramate 200 mg tablet 200 mg PO BEDTIME 09/17/23 11/11/23 11/10/23 History topiramate 50 mg tablet 150 mg PO BEDTIME 09/17/23 11/11/23 11/10/23 History topiramate 50 mg tablet 50 mg PO QAM 11/03/23 11/11/23 11/10/23 History Exam Airway Mallampati Class: III (very poor dentition , decay, multiple missing broken teeth up and down bilaterally.) TM Dist: <=3cm Neck ROM: Limited Heart: rrr Lungs: cta Assessment and Plan Assessment Anesthesia Assessment: Anesthesia Plan Discussed Final Anesthetic Review NPO: Yes ASA Class: III Final Preanesthetic Review: No Changes in Pt Med Stat, Meds/Allgs Chart Reviewed, Consent Obtained/Reviewed and Anes Risks/Benef Reviewed Patient Risk: Intermediate Procedure Risk: Intermediate Anesthetic Plan Anesthetic Plan: GA Disposition: Standard PACU
[2023-11-11] VITALS (11 sets, daily range): BP systolic 113–138; BP diastolic 64–94; PULSE 94–101; RESP 14–20; TEMP 36.1–37; O2SAT 93–100; BMI 46.9
[2023-11-11] MEDS: Lactated Ringers 1,000 ML 999 ML IV (06:24)
[2023-11-11] MEDS: Lactated Ringers 1,000 ML 100 ML IVCONT ×2 (06:25→12:22)
[2023-11-11] MEDS: Aprepitant 32 MG/4.4 ML VIAL IVPUSH (06:25)
--- NOTE | 2023-11-11 07:31 | MHC.SHP ---
Pre-Procedural Eval Section A - 24 Hr Update-Section A only Date of Service: 11/11/23 The patient is an INPATIENT: Yes The patient has been examined within 24 hours of the surgical procedure. The History & Physical has been completed within 30 days and I have reviewed it.: No Section B - Complete if H&P > 30 days Chief Complaint: morbid obesity Relevant Family History (Specify if Yes): No Relevant Social History: None Present Medications: None Medical History: No relevant PMH History of Previous Operations: No relevant previous surgery Allergies: Allergies Allergy/AdvReac Type Severity Reaction Status Date / Time cefaclor [From Ceclor] Allergy Intermediate Hives Verified 11/11/23 06:26 bandaids Allergy Hives Uncoded 11/11/23 06:26 silk tape Allergy Hives Uncoded 11/11/23 06:26 Review of Systems Sugical H&P ROS: Negative: Constitution, Cardiovascular, Respiratory, Neurological, Psychiatric, Hem-Onc, Allergic/Immunologic, Gastrointestinal, Genitourinary, Musculoskeletal, Integumentary, Endocrine and Eyes/Ears/Nose/Throat Exam Surgical H&P Exam: Normal: HEENT, Normal: Heart, Normal: Lungs, Normal: Extremities, Normal: Abdomen, Normal: Skin and Normal: Neurological Plan Diagnosis/Plan: Unchanged I have reviewed the history and physical and performed a pertinent physical examination on my patient. No changes have occurred unless specified. Time Spent With Patient Time: Total time managing care of this patient today ____ minutes.
--- NOTE | 2023-11-11 07:32 | PM.OP ---
Brief Operative Note Date of Service: 11/11/23 Pre-op diagnosis: Morbid obesity with comorbidities (see below) Post-op diagnosis: same Procedure: INITIAL PATIENT BMI ON PRESENTATION AT OUR OFFICE: 53.5 kg/m2 LAST BMI BEFORE SURGERY: 48.6 kg/m2 COMORBIDITIES: sciatica, depression, anxiety, bipolar disorder, PTSD, GERD, liver fibrosis ?The patient presented to the Weight Management Program with significant obesity that was negatively impacting the patient's comorbidities as listed above.? The program is a phased program with a special focus on preoperative medical weight management to promote substantial weight loss and prepare the patients for the second phase of the program: bariatric surgery. The patient participated in an intensive weekly lifestyle ?intervention and exercise program during which the patient ?has lost between the initial office visit and the last preoperative visit 25.7lbs, or 9.08% of initial actual body weight. It was deemed appropriate for the patient to now have bariatric surgery. In light of the current Covid-19 pandemic and the well documented strong association of obesity and increased risk of worse outcomes if infected with Covid-19 (REFERENCES:https://pubmed.ncbi.nlm.nih.gov/01180133/,?https://pubmed.ncbi.nlm.nih.gov/48536337/), any delay in undergoing bariatric surgery may lead to the patient's worsening health condition and increased?risk of more severe Covid-19 disease if infected. In addition a recent?study from [facility] published in [employer] on 04/30/2021 ([email or web address]) found that, among patients with obesity, substantial weight loss achieved with surgery was associated with improved outcomes of COVID-19 infection. The findings suggest that obesity can be a modifiable risk factor for the severity of COVID-19 infection. In addition, the patient met the BMI-criteria for bariatric surgery based on the BMI on initial presentation. The patient should not be penalized for achieving such weight loss because ?it is not sustainable long-term without surgical intervention and it was achieved in preparation for bariatric surgery ?under my direction and based on my published research ([email or web address]).[email or web address] and?https://www.soard.org/article/[email or web address](51)97530-X/pdf) ?that a 10% preoperative weight loss improves long-term weight loss after surgery and reduces perioperative complications.? Insurance carriers such as [facility] have endorsed my recommendations ?and have included in their policies criteria to include a 10% preoperative weight loss requirement. PROCEDURE: Esophago-gastroscopy, laparoscopic lysis of adhesions, laparoscopic sleeve gastrectomy and laparoscopic gastropexy INDICATIONS: This is a 38 year-old female who was electively scheduled for laparoscopic, possibly open sleeve gastrectomy. The risks and complications of the procedure were discussed with the patient in advance, particularly the possibility of ; pulmonary embolism; staple line leak; bleeding; GERD; cardiac, pulmonary, or renal complications; as well as long-term problems such as insufficient weight loss, vitamin deficiency, strictures, or ulcers. The patient understood all the risks, and was in agreement to proceed with surgery. DESCRIPTION OF PROCEDURE: After informed consent was obtained from the patient, the patient was given preoperative antibiotics, and was transferred to the operating room. After successful induction of general anesthesia, pneumatic compression devices were placed on both lower extremities. An upper endoscopy was performed next. The oropharynx and esophagus appeared to be within normal limits. There was no diaphragmatic hernia present consistent with the findings of the preoperative upper GI. The stomach was entered. Then after all fluid and air were suctioned and the stomach was fully decompressed, the scope was withdrawn and secured in the mid esophagus. The patient was then prepped and draped in the usual sterile manner, and abdominal access was established at the right upper quadrant with the Jose technique. A 12 mm blunt port was inserted, and the abdomen was insufflated with CO2 to a pressure of 15 mmHg. Under direct visualization, additional ports were placed, specifically two 5 mm Versi-step ports to the left upper quadrant, and a 5 mm Versi-Step port to the right upper quadrant. 1% lidocaine plain was used to infiltrate all port sites as well as all fascia defects. Following that, the patient was placed in a steep reverse Trendelenburg position. An additional 5 mm port was placed to the right flank for the Mediflex retractor that was used to retract the left lobe of the liver. The gastro-esophageal fat pad was opened with the ultrasonic device (underbeat, Olympus) and the anterior esophagus and hiatus were exposed. The angle of His was opened with the ultrasonic device the fundus of the stomach from any diaphragmatic and splenic attachments. I then opened the gastrocolic ligament between the transverse colon and the greater curvature of the stomach with the ultrasonic device to enter the lesser sac and facilitate the ligation of the short gastric vessels. I started at a mid-point along the greater curvature and using the Thunderbeat, all short gastric vessels were divided all the way to the angle of His until the left jennifer was completely dissected at its entirety. I then divided the gastro-colic ligament distally to a distance of about 3-4 cm proximal to the pylorus. There were extensive congenital adhesions between the pancreas and posterior gastric wall. Those were lysed completely with the ultrasonic device. Adhesiolysis took approximately 45 min to complete. The stomach was then divided transversely with one Endo CAITLYN-45 purple, two CAITLYN-45 orange loads and three CAITLYN-60 articulating orange loads using the AEPandoo TEK powered stapler and loads. Every effort was made that the gastric sleeve had a tubular shape and an even caliber throughout. Once the sleeve resection was completed, the staple line of the gastric sleeve was reinforced with Hemoclips. The resected stomach was retrieved without difficulty from the Jose port. A gastropexy was then performed in order to prevent postoperative GERD and partial gastric volvulus. Several interrupted 2.0 Surgidac sutures were placed between the sleeve's staple line and the previously divided greater omentum and gastro-colic ligament using the Endo-Stitch device. ?An upper endoscopy was performed. There was no narrowing at the GE junction. The scope was easily advanced all the way to the pylorus which was clearly visualized. There was no narrowing anywhere and the sleeve's caliber was even throughout. The sleeve's staple line was inspected and there was no evidence of ischemia, bleeding or dehiscence. At that point the gastroscope was withdrawn from the patient?s mouth while we were decompressing the bowel and the stomach from any remaining air. I looked into the lesser sac to see how the sleeve was situating and it was situating well. There was no bleeding from the staple line, spleen, or short gastric vessels. The Mediflex retractor was removed, and the undersurface of the liver was inspected and there was no bleeding. The patient was placed in supine position. I closed the fascial defect of the 12 mm port site with a figure of eight #1 Polysorb suture. Then 30cc Ropivacaine plain with 10 mg of Dexamethasone were used to infiltrate the fascial closure as well as all skin incisions. A total of 7ml Zynrelef was applied in the Jose wound. At this point, the abdomen was deflated, all ports were removed under direct vision, and no bleeding was noted from any of the port sites. The skin incisions were irrigated with saline and were closed with 4-0 absorbable monofilament sutures. Steri-Strips and OpSites were used to cover all incisions. The patient was extubated and was transferred in stable condition to the recovery room for further care. I was present and performed all ramirez parts of the procedure. Mr. Langley was the periodicals library assistant. There were no residents to assist with this case. Brandon Copeland MD, PhD, FACS Surgeon: Alvin Copeland MD Anesthesia: GETA, local and other (TAP block and 7ml Zynrelef) Was an Tax Investigator used for this Procedure?: No Tax Investigator: Aron Langley Estimated blood loss (mL): 10 IV fluids (mL): 3,000 Urine output (mL): 0 (No Louis to record output) Pathology: other (Stomach) Condition: stable Disposition: PACU
--- NOTE | 2023-11-11 07:35 | P.PNGS_ITS ---
Subjective Subjective Date of Service: 11/12/23 Interval history: Feels well. Mild incisional pain. She is tolerating phase 1 bariatric diet Physical Exam 2 Vital Signs: Vital Signs: Last Vital Signs Temp 97.1 F 11/11/23 06:21 Pulse 95 11/11/23 06:21 Resp 16 11/11/23 06:21 BP 132/92 H 11/11/23 06:21 Pulse Ox 96 11/11/23 06:21 O2 Del Method Room Air 11/11/23 06:21 BMI result Body Mass Index 46.9 GI: Inspection: Yes normal to inspection, Yes incision (clean, dry and intact) and Yes obesity Palpation (GI): Soft to palpation Extrem: Right lower extremity: normal to inspection (no calf tenderness) L eft lower extremity: normal to inspection (no calf tenderness) Objective Data Active Medications Albuterol Sulfate (Albuterol Sulfate (0.083%) 2.5 Mg/3 Ml Vial.Neb) 2.5 mg INHALE ONCE PRN PRN Reason: Shortness of Breath/Wheezing Hydromorphone HCl (Hydromorphone Hcl 0.5 Mg/0.5 Ml Syringe) 0.25 mg IVPUSH Q5M PRN PRN Reason: Pain, Severe (Pain Scale 7-10) Stop: 11/11/23 13:34 Lactated Ringer's (Lr) 1,000 mls @ 100 mls/hr IVCONT .Q10H [facility] Last Admin: 11/11/23 06:25 Dose: 100 mls/hr Documented By: SERVANDO Lactated Ringer's (Lr) 1,000 mls @ 999 mls/hr IV .Q1H1M [facility] Stop: 11/11/23 08:00 Last Admin: 11/11/23 06:24 Dose: 999 mls/hr Documented By: SERVANDO Ondansetron HCl (Ondansetron Hcl 4 Mg/2 Ml Vial) 4 mg IVPUSH ONCE PRN PRN Reason: Nausea and Vomiting Stop: 11/11/23 13:34 Labs 11/12/23 05:47 11/12/23 05:47 Procedures Date of Service Date of Service: 11/12/23 Progress Note: A&P Assessment and plan (1) Morbid obesity: Status: Acute Assessment and Plan: s/p laparoscopic sleeve gastrectomy, lysis of adhesions and gastropexy Doing well Will check am labs and if OK the patient will be discharged home (2) Depression: Status: Acute (3) Anxiety: Status: Acute (4) PTSD (post-traumatic stress disorder): Status: Acute (5) ADHD: Status: Acute (6) Sciatica: Status: Acute (7) Liver fibrosis: Status: Acute (8) S/P laparoscopic sleeve gastrectomy: Status: Acute (9) Congenital intra-abdominal adhesions: Status: Acute Time Spent With Patient Time: Total time managing care of this patient today ____ minutes. Quality Stroke Does the patient have a stroke diagnosis?: No VTE Prior VTE?: No VTE Risk Level:: Surgical - moderate VTE Device Contraindication: N/A - Device Ordered VTE Drug Contraindication: Treatment Not Indicated
--- NOTE | 2023-11-11 11:11 | P.DS_ITS ---
DS: Providers Provider Date of Service: 11/12/23 Date of admission: 11/11/23 05:51 Primary care physician: Unknown Physician DS: Diagnosis Discharge Diagnosis (1) Morbid obesity: Status: Acute (2) Depression: Status: Acute (3) Anxiety: Status: Acute (4) PTSD (post-traumatic stress disorder): Status: Acute (5) ADHD: Status: Acute (6) Sciatica: Status: Acute (7) Liver fibrosis: Status: Acute (8) S/P laparoscopic sleeve gastrectomy: Status: Acute (9) Congenital intra-abdominal adhesions: Status: Acute DS: Summary Hospital Course Hospital Course: ADMITTING DIAGNOSIS: morbid obesity, ADHD, PTSD, anxiety, depression ? DISCHARGE DIAGNOSIS: same, s/p laparoscopic sleeve gastrectomy, lysis of adhesion ? PAST SURGICAL HISTORY: tubal ligation and cesarian section ? PROCEDURE: upper endoscopy, laparoscopic sleeve gastrectomy, lysis of adhesion ? DISCHARGE SUMMARY: ? History of Present Illness: ? The patient is a?38 year-old woman with a BMI of?53.5 kg/m2 and associated co- morbidities as described above. The patient had extensive work-up,lost?29.6 lbs preoperatively and was electively scheduled for laparoscopic, possible open sleeve gastrectomy and gastropexy. Risks and complications of the surgery were discussed with the patient in advance, particularly the possibility of , pulmonary embolism, anastomotic leak, bleeding, bowel injury, GERD, cardiac, renal or pulmonary complications. The patient understood all the risks and was in agreement with the surgical plan. ? Hospital Course: ? The patient underwent an uneventful laparoscopic sleeve gastrectomy with gastropexy on the day of admission. Postoperatively, the patient was transferred to the surgical floor. The patient received IV Acetaminophen and IV dilaudid for pain control. Patient was started on bariatric phase 1 diet POD #0. On postoperative day one, the patient was feeling well without nausea, vomiting, fevers, or tachycardia. The patient had some mild incisional pain and the abdomen was soft. ? On the morning of postoperative day one, the patient was continued on 1 ounce of water or ice every half hour. During the day, the patient did fairly well, having some incisional pain, but able to ambulate adequately and to tolerate liquids well. ? Since the patient is doing well, we decided that the patient was ready to be discharged. The patient was given instructions to follow-up with me next week and to call my office for any fever over 101, persistent abdominal pain, nausea, vomiting, GERD, symptoms of DVT such as calf tenderness, or leg swelling, or pulmonary embolism such as chest pain or shortness of breath. The patient was also instructed to drink 40-60 ounces of liquids per day using the 1-ounce cups. The patient had been given prescriptions for Tylenol for pain, Zofran prn for nausea, and pantoprazole and carafate previously. The patient was encouraged to ambulate and use the incentive spirometer. The patient was allowed to shower, but no baths, and encouraged to stay active at home. All of these instructions were given to the patient personally. All questions were answered and the patient understood all instructions, the instructions were also given to the patient in print. Time Attestation Total time managing care of this patient today: 25 mintues. Discharge Coordination Time (in mins): 25 Quality: Safe Use of Opioids Does Pt have an Active Cancer Diagnosis on the Problem List?: No Quality: Stroke Does the patient have a stroke diagnosis?: No Physical Exam Vital Signs: Vital Signs: Last Vital Signs Temp 98.6 F 11/11/23 10:59 Pulse 99 11/11/23 11:04 Resp 14 11/11/23 11:04 BP 113/64 11/11/23 11:04 Pulse Ox 93 11/11/23 11:04 O2 Del Method Simple Mask 11/11/23 11:04 O2 Flow Rate 8 11/11/23 11:04 BMI result Body Mass Index 46.9 DS: Data Data Completed and Pending Pending studies at discharge: Pending at discharge 11/11/23 10:15 Surgical [PTH] Routine Labs on day of discharge: Laboratory Results - last 24 hr 11/11/23 06:22 Blood Type A Positive Antibody Screen NEGATIVE Discharge Plan Discharge Anticipated Discharge Date/Time: 11/12/23 10:00 Patient Disposition: Home, Self-Care Discharge Diagnosis: s/p laparoscopic sleeve gastrectomy Referrals: Physician,Unknown J [Primary Care Provider] - 1 Week Discharge Medications: Continued nortriptyline 10 mg capsule 10 mg PO BEDTIME nortriptyline 50 mg capsule 50 mg PO BEDTIME topiramate 200 mg tablet 200 mg PO BEDTIME Rx Instructions: For a total of 350mg topiramate 50 mg tablet 150 mg PO BEDTIME Patient Comments: total dose of 350 mg at bedtime Rx Instructions: For a total of 350mg topiramate 50 mg Tablet 50 mg PO DAILY pantoprazole 40 mg tablet,delayed release (DR/EC) 40 mg PO DAILY@0630 escitalopram oxalate 10 mg tablet 10 mg PO DAILY hydroxyzine HCl 25 mg tablet 25 mg PO BID ondansetron 4 mg tablet,disintegrating 4 mg PO Q12H Qty: 20 0RF Held medroxyprogesterone [Depo-Provera] 150 mg/mL suspension 150 mg IM [id number] Hold Instructions: Resume on 12/13/23. Discontinued cholecalciferol (vitamin D3) 125 mcg (5,000 unit) capsule 125 mcg PO DAILY Qty: 90 0RF mecobalamin (vitamin B12) 1,000 mcg tablet,disintegrating 1,000 mcg sublingual DAILY Qty: 90 0RF Rx Instructions: place tablet under tongue and allow to dissolve for at least30 secs before swallowing Discharge Orders: Discharge Order (Routine); Ordered 11/12/23 Ordered By: Alvin Copeland Activity on Discharge: No heavy lifting Stand Alone Forms: Patient Portal Discharge page Print Language: Afghan Care Plan Goals: weight loss Health Concerns: morbid obesity Plan of Treatment: No tub baths, sex or returning to work until discussed at first post op appointment. No exercise, alcohol, tobacco or illegal drug use. Continue to use incentive spirometer hourly while awake. Walk in home for 5- 10 minutes every 2 hours during the first week. Follow all instructions in the bariatric handbook and call with any questions.Discharge Instructions 1. Please call your doctor or come back to the emergency room should any new symptoms arise. 2. You will receive a courtesy call from [facility] 24-48 hours after discharge. 3. Activity: abstain from alcohol, practice limited stair climbing, no bending, no driving, no exercise, no illicit substances, no lifting, no sex, no tub bath, no work. 4. Diet: continue as discussed with Dr. Copeland. 5. Dressing Change/Wound Care: Your incision is covered by clear bandages and guaze underneath. If the area is tender, you may apply an ice pack for short intervals (no more than 20 minutes on, followed by at least 20 minutes off). Do not apply heat. Do not use creams, lotions, or topical antibiotics unless instructed to do so by your surgeon. These can cause infection or allergic reaction. 6. Call your doctor if: - Your temperature exceeds 101.5 F - You experience excessive pain or swelling - You have an unexpected reaction to medication - You have excessive bleeding - You experience continued vomiting/nausea - Your incision begins to separate - Your incision shows signs of infection such as increased redness, swelling, excessive pain, heat, or drainage (light blood or clear fluid is normal) 7. General instructions: No lifting greater than 5 lbs for 1 week and not more than 20lbs the next 3?weeks. No driving until seen at the office in 5-7 days after surgery. If you do not move your bowels in the next 2 days, please tell?Dr. Copeland. Please walk around your home every hour or two to prevent blood clots from forming in your legs. You do not need to wake from sleeping to walk. Please sleep in a bed or couch to prevent kinking at the hips and knees. Please take your incentive spirometer (your lung horse exerciser) home with you and use it for the next few days to prevent pneumonia. You may shower, no hot tubs, baths or swimming pools.?Please follow the post op diet instructions you are?given by Dr Copeland? and text me daily at 5-6pm for an update.?If you have any issues or concerns or questions please communicate this to him via text.? The Celebrate shakes have all of the bariatric vitamins you need if you consume these shakes. If you are drinking other protein shakes, you will need to purchase the Celebrate multivitamins and calcium that are available in the hospital gift shop on the first floor of the [facility].??Do not take anything without first discussing with Dr Copeland. Please make sure you are consuming at least 40 ounces of fluids per day starting the?day AFTER your d ischarge from the hospital. Always drink 1-2 ml per minute using the 5ml?syringe. If you drink faster you may experience?bloating,?gas pain, burping, nausea or heartburn. In that case please slow down your pace and use the syringe to?understand better the?proper?pace and volume of drinking. Do not hesitate to contact the office with any questions at . The patient's medical history has been reviewed and they are considered low risk for post op DVT and therefore DVT prophylaxis is not considered necessary. Travel after surgery was reviewed. The patient has not disclosed any travel plans during the first 30 days after surgery and they have been advised that within the first 30 days after surgery any bus, plane, train or car travel over 2 hours in duration is contraindicated due to the possibility of developing blood clots from immobility. Any travel, needs to include periods of ambulation of 10 minutes in duration every 2 hours.? The patient was instructed to discuss any plans for travel during this period with their bariatric surgeon. Assessment: stable s/p laparoscopic sleeve gastrectomy and lysis of adhesions Discharge Date/Time: 11/12/23 09:42
[2023-11-11 11:47] LABS: Hematocrit 41.3 % (37.0-47.0); Hemoglobin 13.6 g/dl (12.0-16.0)
[2023-11-11 11:56] LABS: Anion Gap 14 (12-20); Blood Urea Nitrogen 11 mg/dL (9-16); Calcium 8.5 mg/dL (8.4-10.2); Carbon Dioxide 21 mmol/L (22-29); Chloride 108 mmol/L (96-108); Estimated Glomerular Filt Rate > 60; Glucose Random 115 mg/dL (60-115); Potassium 4.1 mmol/L (3.3-5.1); Sodium 139 mmol/L (135-145)
--- NOTE | 2023-11-11 12:45 | PHA.MEDREC ---
Pharmacy Consult ? Medication Reconciliation Pharmacy has completed the medication reconciliation.Confirmed medications with pt, pt states she is currently on Medroxyprogsterone injectable every 3 months and she stated she is due for it on 11/13, but according to her the surgeon told her to hold off on this for 30 days .
[2023-11-11] MEDS: Acetaminophen 1,000 MG/100 ML PIGGYBACK 16.7 MG IV ×2 (15:20→21:51)
[2023-11-11] MEDS: Metoclopramide HCl 10 MG/2 ML VIAL IVPUSH (15:53)
[2023-11-11] MEDS: Nortriptyline HCl 25 MG CAPSULE 50 MG PO (20:11)
[2023-11-11] MEDS: Topiramate 25 MG TABLET 150 MG PO (20:11)
[2023-11-11] MEDS: Topiramate 100 MG TABLET 200 MG PO (20:11)
[2023-11-11] MEDS: Nortriptyline HCl 10 MG CAPSULE PO (20:12)
[2023-11-11] MEDS: Famotidine/PF 20 MG/2 ML VIAL IVPUSH (20:12)
[2023-11-11] MEDS: 0.9 % Sodium Chloride Flush 3 ML SYRINGE IVFLUSH (20:12)
[2023-11-11] MEDS: hydrOXYzine HCL 25 MG TABLET PO (20:12)
[2023-11-12] VITALS: BP 122/80; PULSE 95; RESP 16; TEMP 36.9; O2SAT 94
[2023-11-12] MEDS: Lactated Ringers 1,000 ML 100 ML IVCONT (01:12)
[2023-11-12 03:12] VITALS: BP 125/80; PULSE 89; RESP 16; TEMP 36.8; O2SAT 95
[2023-11-12] MEDS: Acetaminophen 1,000 MG/100 ML PIGGYBACK 16.7 MG IV (04:04)
[2023-11-12 06:38] LABS: MANUAL DIFF FLAG NO
[2023-11-12 06:46] LABS: Basophils Percent Auto 0.1 % (0-2); Hematocrit 39.1 % (37.0-47.0); Hemoglobin 12.8 g/dl (12.0-16.0); Imm Gran Abs Auto 0.06 X10*3/uL (0.00-0.03); Imm Gran Pct Auto 0.4 % (0.0-0.4); Lymphocytes Absolute Auto 2.9 X10*3/uL (1.2-4.9); Lymphocytes Percent Auto 20.2 % (20-40); Mean Corpuscular HGB Conc 32.7 g/dl (31.0-35.0); Mean Corpuscular Hemoglobin 29.3 pg (27.0-33.0); Mean Corpuscular Volume 89.5 fL (80.0-98.0); Mean Platelet Volume 9.8 fL (9.4-12.3); Monocytes Percent Auto 6.8 % (2-11); Neutrophils Absolute Auto 10.3 x10*3/uL (2.0-8.3); Neutrophils Percent Auto 72.5 % (45-73); Platelet Count 323 X10*3/uL (160-400); Red Blood Count 4.37 X10*6/uL (4.20-5.50); Red Cell Distribution Width 13.6 % (11.0-16.0); White Blood Count 14.2 X10*3/uL (4.8-10.8)
[2023-11-12 07:02] LABS: Anion Gap 12 (12-20); Blood Urea Nitrogen 9 mg/dL (9-16); Calcium 9.1 mg/dL (8.4-10.2); Carbon Dioxide 18 mmol/L (22-29); Chloride 113 mmol/L (96-108); Estimated Glomerular Filt Rate > 60; Glucose Random 82 mg/dL (60-115); Potassium 3.4 mmol/L (3.3-5.1); Sodium 140 mmol/L (135-145)
[2023-11-12] MEDS: Famotidine/PF 20 MG/2 ML VIAL IVPUSH (07:09)
[2023-11-12] MEDS: Topiramate 25 MG TABLET 50 MG PO (07:09)
[2023-11-12] MEDS: Escitalopram Oxalate 10 MG TABLET PO (07:09)
[2023-11-12] MEDS: hydrOXYzine HCL 25 MG TABLET PO (07:10)
[2023-11-12 07:45] VITALS: BP 103/70; PULSE 92; RESP 18; TEMP 36.8; O2SAT 95
--- NOTE | 2023-11-12 08:41 | HO.POSTANES ---
Post Anesthesia Evaluation Post Anesthesia Evaluation Date of Service: 11/12/23 Vital Signs: Vital Signs Temp Pulse Resp BP Pulse Ox O2 Del Method 11/12/23 07:45 98.3 F 92 18 103/70 95 Room Air 11/12/23 03:12 98.3 F 89 16 125/80 95 Room Air 11/12/23 00:00 98.5 F 95 16 122/80 94 Room Air Anesthesia: General Endotracheal-GETA Mental Status: Awake Pain Control: Satisfactory Nausea/Vomiting: None Hydration: Adequate Anesthesia-Related Issues: No Anes. Related Issues
--- NOTE | 2023-11-12 10:14 | MHC.CM.PN ---
CM ATTEMPTED TO MEET WITH PT WHO WAS WITH RN PT LEFT THE BUILDING PRIOR TO CM RETURN PT FULLY INDEPENDENT AT BASELINE NO CM INTERVENTIONS INDICATED DC HOME TODAY WITH NO SERVICES VIA PRIVATE TRANSPORT
== END 2023-11-12 09:42 | disposition home or self-care (01) | DRG 403 ==
LOC: HO.SSSA 11:17 → HO.S3 11:45
PROVIDERS: Physician Assistant Surgical; Admitting Provider Surgery; Visit Provider Surgery
PROC: 0DB64Z3 Excision of Stomach, Percutaneous Endoscopic Approach, Vertical (ICD-10-PCS; CPT 43845; principal; 2023-11-11 07:30)
DX: E66.01 Morbid (severe) obesity due to excess calories (principal); K74.00 Hepatic fibrosis, unspecified; Q43.3 Congenital malformations of intestinal fixation; F32.A Depression, unspecified; M54.30 Sciatica, unspecified side; F90.9 Attention-deficit hyperactivity disorder, unspecified type; F43.10 Post-traumatic stress disorder, unspecified; K21.9 Gastro-esophageal reflux disease without esophagitis; Z68.42 Body mass index [BMI] 45.0-49.9, adult; F41.9 Anxiety disorder, unspecified; Z79.899 Other long term (current) drug therapy
CPT/HCPCS: 36415; 80048; 80053; 80061; 83036; 83525; 84443; 85014; 85018; 85025; 85610; 85730; 86140; 86850; 86900; 86901; 88304; 88305; 88307; 88342; A4649; C9088; C9145; J0131; J1100; J1170; J1956; J2250; J2405; J2704; J2765; J2795; J3010; J7120

== ENCOUNTER → 2023-11-11 05:51 | Outpatient (BNV) | payer OTHER, SELFPAY | PROVIDERS: Admitting Provider Surgery; Visit Provider Surgery | DX: E66.01 Morbid (severe) obesity due to excess calories (principal); Z68.42 Body mass index [BMI] 45.0-49.9, adult; Z90.3 Acquired absence of stomach [part of]; Z98.84 Bariatric surgery status | CPT/HCPCS: 43659; 43775; 99024; 99499 ==

== ENCOUNTER 2023-11-18 10:18 | Outpatient (AMB) | payer OTHER, SELFPAY ==
--- NOTE | 2023-11-18 10:57 | A.OFFVIS_ITS ---
VS Expanded 11/18/23 11:20 BP 124/84 Blood Pressure Location Rt brachial Blood Pressure Position Sitting Pulse 109 H Pulse Source Pulse Oximeter Temp 97.7 F Temperature Source Temporal Artery Scan Pulse Oximetry 97 Oxygen Delivery Method Room Air Height 5 ft 1 in Weight 237 lb 12.8 oz BMI 44.9 Body Fat % 50.1 Body Fat Mass 19.0 Fat Free Mass 118.6 Visceral Fat Rating 15.0 Body Water % 35.7 Body Water Mass 84.8 Muscle Mass/Score 112.6 Basal Metabolic Rate/Score 1,717 Intake Visit Reasons: (OV) PO LSG 11/11/23 Allergies cefaclor [From Ceclor] Allergy (Intermediate, Verified 11/18/23 11:03) Hives bandaids Allergy (Uncoded 11/11/23 06:26) Hives silk tape Allergy (Uncoded 11/11/23 06:26) Hives HPI Comments Details: 38-year-old female returns to the office today in follow-up. She is approximately 1 week post sleeve gastrectomy performed on 11/11/2023. She is tolerating 3 celebrate 4 in 1 shakes with 1 scoop each and proximally 40-45 oz of fluids daily. She is moved her bowels. [facility] Medical History (Updated 11/11/23 @ 11:07 by Alvin Copeland MD) GERD (gastroesophageal reflux disease) Asthma Sciatica ADHD PTSD (post-traumatic stress disorder) Anxiety Depression Morbid obesity Surgical History (Updated 11/18/23 @ 11:04 by Shayna Valencia CMA) S/P laparoscopic sleeve gastrectomy Hx laparoscopic cholecystectomy History of esophagogastroduodenoscopy (EGD) Tubal ligation status History of placement of ear tubes Hx of section Family History Mother Cancer, uterine Maternal Grandmother Cervical cancer Father FHx: prostate cancer Colon cancer Paternal Uncle Colon cancer Paternal Grandfather No problems noted. Social History Household Members: Family Housing: House Are you a primary critical care educator to a significant other at home: No Do you presently have visiting nurse or other home services: No Alcohol intake: never Comment: comfortable Patient Tobacco Use Status: Former Tobacco user Tobacco use type: Smokeless Tobacco service: No Physical Exam Vital Signs: Last Vital Signs Temp 97.7 F 11/18/23 11:20 Pulse 109 H 11/18/23 11:20 BP 124/84 11/18/23 11:20 Pulse Ox 97 11/18/23 11:20 Oxygen Delivery Method Room Air 11/18/23 11:20 BMI result Body Mass Index 44.9 GI Inspection: Yes incision (Clean, dry, intact, mild bruising.) Assessment & Plan Assessment & Plan (1) S/P laparoscopic sleeve gastrectomy: Code(s): Z98.84 - Bariatric surgery status Category: Surgical Plan: POD 7 s/p LSG on 11/11/[address] Copeland Weight loss prior to surgery was 29.6 pounds or 10.4 % TBWL. Original weight on 08/09/2023 was 283 pounds and op weight was 253.4 pounds. Be sure to text Dr Copeland exactly 1 week after surgery your weight from your home scale so he can adjust your meal plan. Continue meal plan until f/u natalia Husain in 2 weeks May shower, no submersion in bath for another week Continue abdominal binder with activity and exercise for the next 2 weeks. Exercise prior to surgery was treadmill and may resume No abdominal exercises for 6 weeks post operatively Will be emailed link to post op video for review Reminded of the pace of drinking, 2 mL per minute, 1 oz/15 min.
[2023-11-18 11:20] VITALS: BP 124/84; PULSE 109; TEMP 36.5; O2SAT 97; BMI 44.9
== END 2023-11-18 11:48 | disposition home or self-care (01) ==
PROVIDERS: PCP Family Medicine; Visit Provider Physician Assistant Surgical
DX: Z98.84 Bariatric surgery status (principal)
CPT/HCPCS: 99024

== ENCOUNTER → 2023-11-18 10:18 | Outpatient (BNVA) | payer OTHER, SELFPAY | PROVIDERS: PCP Family Medicine; Visit Provider Physician Assistant Surgical | DX: Z48.815 Encounter for surgical aftercare following surgery on the digestive system (principal); Z98.84 Bariatric surgery status | CPT/HCPCS: 99212 ==

== ENCOUNTER 2023-11-19 20:10 | Emergency (ER) | payer OTHER, SELFPAY ==
--- NOTE | ~2023-11-19 | CT_ITS ---
EXAMINATION: CT ANGIOGRAM OF THE CHEST WITH AND WITHOUT CONTRAST (CT PULMONARY ANGIOGRAM FOR PE), CT ABDOMEN AND PELVIS CLINICAL INFORMATION: Reason for Exam post op, syncope COMPARISON: None available. TECHNIQUE: Prior to contrast administration, noncontrast localization images were obtained. Subsequently, multidetector volumetric imaging was performed from the thoracic inlet to below the diaphragms following the administration of 65 mL Omnipaque [address] scan images of the abdomen and pelvis also obtained. No contrast reaction reported Sagittal, coronal, and MIP oblique sagittal reformatted images were obtained on the CT workstation, uploaded to PACS, and reviewed. This CT examination was performed using dose optimization techniques as appropriate, variously including the following: *Automated exposure control *Adjustment of mA and/or kV according to patient size (this includes techniques or standardized protocols for targeted exams where dose is matched to indication/reason for exam; i.e. extremities or head) *Use of iterative reconstruction technique Total exam dose-length product 1217 mGy-cm FINDINGS: QUALITY OF STUDY/CONTRAST BOLUS: Satisfactory. PULMONARY ARTERIES: No pulmonary emboli. THORACIC AORTA: No aneurysm. LUNG: There is atelectatic change at both lung bases. The lungs are otherwise clear. PLEURA: No pleural effusion or pneumothorax. MEDIASTINUM: Normal heart size. No pericardial effusion. No hilar or mediastinal lymphadenopathy. No evidence of septal bowing or right heart strain. CORONARY ARTERY CALCIFICATION: None visualized on this study. CHEST WALL/AXILLA: No axillary or internal mammary lymphadenopathy. OSSEOUS STRUCTURES: No acute or suspicious osseous abnormality. LIVER, GALLBLADDER, AND BILIARY TREE: The liver is normal in size, shape, and attenuation. No focal hepatic lesion or biliary ductal dilatation is present. There has been a prior cholecystectomy. PANCREAS: Unremarkable SPLEEN: Unremarkable ADRENAL GLANDS: Unremarkable KIDNEYS AND URETERS: The kidneys are normal in size, shape, and attenuation. No hydronephrosis, hydroureter, or calculi seen. No perinephric stranding. BLADDER: Unremarkable GASTROINTESTINAL TRACT: There has been a prior gastric sleeve procedure. The small and large bowel are unremarkable. The appendix is notidentified ABDOMINAL WALL: No significant hernia is appreciated. LYMPH NODES: Normal VASCULAR: Unremarkable PELVIC VISCERA: Pelvic viscera are unremarkable. OSSEOUS STRUCTURES: Unremarkable CT/CT abdomen pelvis w IV con IMPRESSION: IMPRESSION: 1. No evidence of pulmonary embolism. 2. There is atelectatic change at both lung bases. 3. No acute findings in the abdomen or pelvis. VTE: negative.
[2023-11-19 20:12] VITALS: BP 140/80; PULSE 88; O2SAT 99
[2023-11-19 20:20] VITALS: BP 118/75; PULSE 99; RESP 18; TEMP 36.3; O2SAT 97; BMI 44.8
--- NOTE | 2023-11-20 01:27 | ED.GENADULT ---
HPI - General Adult General Chief complaint: General Medical Stated complaint: malaise, tired, gastric bypass x8days Time Seen by Provider: 11/20/23 00:33 Source: patient Mode of arrival: ambulatory Limitations: no limitations History of Present Illness ED Provider: Dr. Sana York HPI narrative: Patient comes to the emergency room by ambulance complaining of a near syncopal episode. Patient states that approximately 1 hour prior to arrival, patient was trying to drink 1 of her protein shakes. Patient states that her abdominal wants to crampy. Patient attempted to take a shower to calm her stomach but while she was in the shower, states she got very hot, flushed, nearly passed out. Of note, patient had a gastric sleeve surgery 9 days ago had some hernia repairs. Patient denies any recent fevers, URIs or UTIs. Related Data Home Medications ?Medication ?Instructions ?Recorded ?Confirmed medroxyprogesterone 150 mg/mL 150 mg IM [id number] 07/09/23 11/11/23 intramuscular suspension (Depo-Provera) escitalopram oxalate 10 mg tablet 10 mg PO DAILY 08/09/23 11/11/23 hydroxyzine HCl 25 mg tablet 25 mg PO BID 08/09/23 11/11/23 nortriptyline 10 mg capsule 10 mg PO BEDTIME 09/17/23 11/11/23 nortriptyline 50 mg capsule 50 mg PO BEDTIME 09/17/23 11/11/23 topiramate 200 mg tablet 200 mg PO BEDTIME 09/17/23 11/11/23 topiramate 50 mg tablet 150 mg PO BEDTIME 09/17/23 11/11/23 topiramate 50 mg tablet 50 mg PO DAILY 11/03/23 11/11/23 pantoprazole 40 mg tablet,delayed 40 mg PO DAILY@0630 11/11/23 11/11/23 release Previous Rx's ?Medication ?Instructions ?Recorded ondansetron 4 mg disintegrating 4 mg PO Q12H nausea and vomiting 10/31/23 tablet #20 tabs Allergies Allergy/AdvReac Type Severity Reaction Status Date / Time cefaclor [From [facility]] Allergy Intermediate Hives Verified 11/19/23 20:24 bandaids Allergy Hives Uncoded 11/11/23 06:26 silk tape Allergy Hives Uncoded 11/11/23 06:26 Review of Systems Review of Systems: Constitutional : No Weight loss, No Fever, No Chills, No Night Sweats, No Fatigue, No Malaise ENT/Mouth : No Hearing loss, No Ear Pain, No Nasal Congestion, No Sinus Pain, No Hoarseness, No sore throat, No Rhinorrhea, No Swallowing Difficulty Eyes: No Eye Pain, No Swelling, No Redness, No Foreign Body, No Discharge, No Vision Changes Cardiovascular : No Chest Pain, No SOB, No Dyspnea on Exertion, No Orthopnea, No Edema, No Palpitations Respiratory : No Cough, No Sputum, No Wheezing, No Smoke Exposure, No Dyspnea Gastrointestinal : No Nausea, No Vomiting, No Diarrhea, No Constipation, complaining of abdominal discomfort 9 days status post gastric sleeve Genitourinary : no irregular bleeding, No Dysuria, No Urinary Frequency, No Hematuria, No Urinary Incontinence, No Urgency, No Flank Pain, No Urinary Flow Changes, No Hesitancy Musculoskeletal : No joint pain, No Myalgias, No Joint Swelling Skin : No Skin Lesions, No rash Neuro : No Weakness, No Numbness, No Paresthesias, complaining of near syncope, no headache Psych : No Anxiety/Panic, No Depression, No SI/HI/AH/VH, No Social Issues, Heme/Lymph: No Bruising, No Bleeding,No Lymphadenopathy Endocrine : No Polyuria, No Polydipsia, No Temperature Intolerance [facility] Past Medical History Medical History Cholecystitis, acute with cholelithiasis Cholelithiasis GERD (gastroesophageal reflux disease) Asthma Sciatica ADHD PTSD (post-traumatic stress disorder) Anxiety Depression Morbid obesity Surgical History (Updated 11/20/23 @ 00:03 by Elizabet Escamilla) S/P laparoscopic sleeve gastrectomy Hx laparoscopic cholecystectomy History of esophagogastroduodenoscopy (EGD) Tubal ligation status History of placement of ear tubes Hx of section Family History Family History Mother Cancer, uterine Maternal Grandmother Cervical cancer Father FHx: prostate cancer Colon cancer Paternal Uncle Colon cancer Paternal Grandfather No problems noted. Social History Social History Household Members: Family Housing: House Are you a primary acute care nurse practitioner to a significant other at home: No Do you presently have visiting nurse or other home services: No Alcohol intake: never Comment: comfortable Patient Tobacco Use Status: Former Tobacco user Tobacco use type: Smokeless Tobacco Smoked in Last 30 Days: No Use of substances other than those prescribed or required for medical reasons: No Advance Directives: No Advance Directives Information Provided: Yes Do you have a plan to hurt others: No Plan Patient : No service: No Physical Exam ED Vital Signs: Vital Signs - 24 hr 11/19/23 20:20 11/20/23 04:37 11/20/23 06:09 Temperature 97.3 F Pulse Rate 99 77 73 Respiratory Rate 18 14 15 Blood Pressure 118/75 116/74 119/69 Pulse Oximetry 97 98 98 Oxygen Delivery Method Room Air Room Air Room Air 11/20/23 06:21 Temperature 97.3 F Pulse Rate 89 Respiratory Rate 16 Blood Pressure 102/59 L Pulse Oximetry 96 Oxygen Delivery Method Room Air BMI result Body Mass Index 44.8 Const Other: Appearance: Alert. Oriented X3. No acute distress. Well appearing Eyes: Pupils equal, round and reactive to light. ENT: Pharynx normal. Neck: Normal inspection. Neck supple. No lymph nodes noted. No crepitus CVS: Normal heart rate and rhythm. Pulses normal. Normal S1 and S2 Respiratory: No respiratory distress. Breath sounds normal. No Wheezing. No rales Abdomen: Soft and nontender. No rigidity. No distention. Skin: Skin warm and dry. Normal skin color. Normal skin turgor. Incisions in the abdomen look clean, no drainage Extremities: No lower extremity edema. No Lacerations. No Rash Neuro: Oriented X 3. No motor deficit. No sensory deficit. Moving all extremities. No slurred speech. CN 2 through 12 grossly intact Psych: calm, cooperative, normal affect Course Course Course Narrative: -all of patient's labs pending -CT scan for pulmonary embolism and CT scan with p.o. contrast of the abdomen/pelvis pending -patient receiving IV fluids, Zofran Medications Administered Discontinued Medications Generic Name Dose Route Start Last Admin Trade Name Freq PRN Reason Stop Dose Admin Diatrizoate Meglum/Diatrizoate Sod 30 ml 11/20/23 02:29 11/20/23 02:30 Diatrizoate Meglumine, Sodium 30 Ml Solution PO 11/20/23 02:30 30 ml ONCE ONE Administration Sodium Chloride 1,000 mls @ 999 mls/hr 11/20/23 00:35 11/20/23 02:54 Ns IVCONT 11/20/23 01:35 Infused .Q1H1M ONE Infusion Iohexol 65 ml 11/20/23 03:36 11/20/23 03:37 Iohexol 350 Mg/Ml 100 Ml Infus..Btl IV 11/20/23 03:37 65 ml ONCE ONE Administration Ondansetron HCl 4 mg 11/20/23 00:35 11/20/23 01:28 Ondansetron Hcl 4 Mg/2 Ml Vial IVPUSH 11/20/23 00:36 4 mg ONCE ONE Administration Medical Decision Making Medical Decision Making MDM Narrative: -my interpretation of labs: White blood cell count 13.0, likely reactive leukocytosis, patient had surgery 9 days ago, no significant electrolyte abnormality, ALT and alk-phos slightly bumped, troponin negative -given that patient had a near syncopal episode in is 9 days postop, a CT scan was obtained. I do not see any obvious PEs. Radiology report pending -CT scan of the abdomen pending -EKG pending -sign-out given to my colleague Dr. Resendez, once radiology reports a back, please call bariatric surgery to inform the results about their patient Differential Diagnosis Differential Diagnoses: The differential diagnosis associated with the presentation includes (Dehydration, vasovagal syncope, orthostatic hypotension, PE) Admission/Observation Consideration of admission/observation: Escalation of care including admission/observation considered (Patient is under physician observation waiting for the CT scans) Lab Data MDM Lab Attestation statement: I reviewed the patient's lab results. 11/20/23 01:23 11/20/23 01:23 Labs: Lab Results 11/20/23 Range/Units 01:23 WBC 13.0 H (4.8-10.8) X10*3/uL RBC 5.05 (4.20-5.50) X10*6/uL Hgb 14.8 (12.0-16.0) g/dl Hct 43.9 (37.0-47.0) % MCV 86.9 (80.0-98.0) fL MCH 29.3 (27.0-33.0) pg MCHC 33.7 (31.0-35.0) g/dl RDW 13.5 (11.0-16.0) % Plt Count 396 (160-400) X10*3/uL MPV 9.6 (9.4-12.3) fL Immature Gran % (Auto) 0.3 (0.0-0.4) % Neut % (Auto) 63.6 (45-73) % Lymph % (Auto) 28.2 (20-40) % [place] % (Auto) 5.9 (2-11) % Eos % (Auto) 1.5 (0-4) % Baso % (Auto) 0.5 (0-2) % Lymph # (Auto) 3.7 (1.2-4.9) X10*3/uL [place] # (Auto) 0.8 (0.1-1.2) X10*3/uL Eos # (Auto) 0.2 (0.0-0.4) X10*3/uL Baso # (Auto) 0.1 (0.0-0.2) X10*3/uL Abs Immat Gran (auto) 0.04 H (0.00-0.03) X10*3/uL Absolute Neuts (auto) 8.3 (2.0-8.3) x10*3/uL Absolute Nucleated RBC 0.000 (0.0-0.012) X10*3/uL Nucleated RBC % (auto) 0.0 (0.0-0.2) /100WBC Sodium 140 (135-145) mmol/L Potassium 3.4 (3.3-5.1) mmol/L Chloride 106 (96-108) mmol/L Carbon Dioxide 17 L (22-29) mmol/L Anion Gap 20 (12-20) BUN 13 (9-16) mg/dL Creatinine 0.74 (0.5-1.4) mg/dL Estim Creat Clear Calc 116.6 Estimated GFR > 60 Random Glucose 82 (60-115) mg/dL Calcium 10.0 D (8.4-10.2) mg/dL Magnesium 2.1 (1.6-2.6) mg/dL Total Bilirubin 0.3 (0.0-1.0) mg/dL Direct Bilirubin 0.2 (0.0-0.5) mg/dL AST 20 (5-31) U/L ALT 47 H (0-31) U/L Alkaline Phosphatase 130 H (39-117) U/L Troponin I High Sens < 2.7 (<3.5-17.0) ng/L Total Protein 7.7 (6.5-8.0) g/dL Albumin 4.1 (3.5-5.0) g/dL Ethyl Alcohol < 10 mg/dL Critical Care Time Critical Care Time Critical Care Time: Yes Total Critical Care Time: 60 Attestation: I have personally provided critical care time. Time includes review of lab data, radiology results, discussion with consultants, and monitoring for potential decompensation. Intervention performed as documented. Discharge Plan Discharge Clinical Impression: Syncope Patient Disposition: Still a Patient Prescriptions: No Action nortriptyline 10 mg capsule 10 mg PO BEDTIME nortriptyline 50 mg capsule 50 mg PO BEDTIME topiramate 200 mg tablet 200 mg PO BEDTIME Rx Instructions: For a total of 350mg topiramate 50 mg tablet 150 mg PO BEDTIME Patient Comments: total dose of 350 mg at bedtime Rx Instructions: For a total of 350mg topiramate 50 mg Tablet 50 mg PO DAILY pantoprazole 40 mg tablet,delayed release (DR/EC) 40 mg PO DAILY@0630 escitalopram oxalate 10 mg tablet 10 mg PO DAILY hydroxyzine HCl 25 mg tablet 25 mg PO BID medroxyprogesterone [Depo-Provera] 150 mg/mL suspension 150 mg IM [id number] Hold Instructions: Resume on 12/13/23. ondansetron 4 mg tablet,disintegrating 4 mg PO Q12H Qty: 20 0RF Print Language: Croatian
[2023-11-20] MEDS: 0.9 % Sodium Chloride 1,000 ML 999 ML IVCONT (01:28)
[2023-11-20] MEDS: ondansetron HCL 4 MG/2 ML VIAL IVPUSH (01:28)
[2023-11-20 01:30] LABS: Basophils Absolute Auto 0.1 X10*3/uL (0.0-0.2); Basophils Percent Auto 0.5 % (0-2); Eosinophils Absolute Auto 0.2 X10*3/uL (0.0-0.4); Eosinophils Percent Auto 1.5 % (0-4); Hematocrit 43.9 % (37.0-47.0); Hemoglobin 14.8 g/dl (12.0-16.0); Imm Gran Abs Auto 0.04 X10*3/uL (0.00-0.03); Imm Gran Pct Auto 0.3 % (0.0-0.4); Lymphocytes Absolute Auto 3.7 X10*3/uL (1.2-4.9); Lymphocytes Percent Auto 28.2 % (20-40); MANUAL DIFF FLAG NO; Mean Corpuscular HGB Conc 33.7 g/dl (31.0-35.0); Mean Corpuscular Hemoglobin 29.3 pg (27.0-33.0); Mean Corpuscular Volume 86.9 fL (80.0-98.0); Mean Platelet Volume 9.6 fL (9.4-12.3); Monocytes Absolute Auto 0.8 X10*3/uL (0.1-1.2); Monocytes Percent Auto 5.9 % (2-11); Neutrophils Absolute Auto 8.3 x10*3/uL (2.0-8.3); Neutrophils Percent Auto 63.6 % (45-73); Platelet Count 396 X10*3/uL (160-400); Red Blood Count 5.05 X10*6/uL (4.20-5.50); Red Cell Distribution Width 13.5 % (11.0-16.0)
[2023-11-20 01:46] LABS: Alanine Aminotransferase 47 U/L (0-31); Albumin Level 4.1 g/dL (3.5-5.0); Alkaline Phosphatase 130 U/L (39-117); Anion Gap 20 (12-20); Aspartate Amino Transferase 20 U/L (5-31); Bilirubin Direct 0.2 mg/dL (0.0-0.5); Bilirubin Total 0.3 mg/dL (0.0-1.0); Blood Urea Nitrogen 13 mg/dL (9-16); Carbon Dioxide 17 mmol/L (22-29); Chloride 106 mmol/L (96-108); Creatinine Clr Calc Pharmacy 116.6; Estimated Glomerular Filt Rate > 60; Ethanol < 10 mg/dL; Glucose Random 82 mg/dL (60-115); Magnesium 2.1 mg/dL (1.6-2.6); Potassium 3.4 mmol/L (3.3-5.1); Sodium 140 mmol/L (135-145); Total Protein 7.7 g/dL (6.5-8.0)
[2023-11-20 01:51] LABS: Troponin-I High Sensitivity < 2.7 ng/L (<3.5-17.0)
[2023-11-20] MEDS: Diatrizoate Meglumine, Sodium 30 ML SOLUTION PO (02:30)
[2023-11-20] MEDS: iohexoL 350 MG/ML 100 ML INFUS..BTL 65 ML IV (03:37)
[2023-11-20 04:37] VITALS: BP 116/74; PULSE 77; RESP 14; O2SAT 98
[2023-11-20 06:09] VITALS: BP 119/69; PULSE 73; RESP 15; O2SAT 98
[2023-11-20 06:21] VITALS: BP 102/59; PULSE 89; RESP 16; TEMP 36.3; O2SAT 96
[2023-11-20] MEDS: 0.9 % Sodium Chloride 1,000 ML 999 ML IV (08:04)
[2023-11-20 09:18] VITALS: BP 102/53; PULSE 83; RESP 20; TEMP 36.6; O2SAT 97
== END 2023-11-20 09:19 | disposition home or self-care (01) ==
PROVIDERS: Emergency Medicine; Emergency Provider Emergency Medicine Emergency Medical Services
DX: R55 Syncope and collapse (principal); R10.9 Unspecified abdominal pain; Z98.84 Bariatric surgery status; Z79.899 Other long term (current) drug therapy
CPT/HCPCS: 36415; 71275; 74177; 80048; 80076; 80307; 83735; 84484; 85025; 96361; 96374; 99284; J2405; Q9967

== ENCOUNTER 2023-12-10 12:46 | Outpatient (AMB) | payer OTHER, SELFPAY ==
--- NOTE | 2023-12-10 12:57 | MHC.OFFVISWM ---
VS Expanded 12/10/23 13:04 BP 136/78 Blood Pressure Location Rt brachial Blood Pressure Position Sitting Pulse 112 H Pulse Source Pulse Oximeter Temp 97.3 F Temperature Source Temporal Artery Scan Pulse Oximetry 98 Oxygen Delivery Method Room Air Height 5 ft 1 in Weight 226 lb BMI 42.7 Body Fat % 48.6 Body Fat Mass 109.8 Fat Free Mass 116.2 Visceral Fat Rating 14 Body Water % 36.8 Body Water Mass 83.2 Muscle Mass/Score 110.2 Basal Metabolic Rate/Score 1,671 Intake Visit Reasons: (OV) PO LSG 11/11/23 Intake Note: PA made aware of pulse of 112 on presentation Allergies cefaclor [From Ceclor] Allergy (Intermediate, Verified 12/10/23 13:07) Hives bandaids Allergy (Uncoded 12/10/23 13:07) Hives silk tape Allergy (Uncoded 12/10/23 13:07) Hives Medication List - Last Reconciled 12/10/23 by Billy Paige, RN escitalopram oxalate 10 mg PO DAILY hydroxyzine HCl 25 mg PO BID medroxyprogesterone (Depo-Provera) 150 mg IM [id number] nortriptyline 50 mg PO BEDTIME nortriptyline 10 mg PO BEDTIME pantoprazole 40 mg PO DAILY@0630 topiramate 200 mg PO BEDTIME topiramate 150 mg PO BEDTIME topiramate 50 mg PO DAILY HPI Comments Details: This?is a?38?yo female who is s/p LSG 11/11/2023. Presents for 1 month post op visit. Weight at last visit on 11/18/2023 was 237.8 pounds with a BMI of 44.9, weight today is 226 pounds, representing an 11.8 pound weight loss with a BMI today of 42.7.? No complaints of nausea, emesis, abdominal pain or reflux, or constipation. Feeling hungry. Taking PPI, just got carafate. Reports constipation. Present meal plan includes: 1 Celebrate shake with 2 scoops 2 Celebrate shakes with 1 scoop 1 Celebrate bar wants to go back to [employer] and start MVI trying to get enough fluids- drinking Gatorade Zero, getting 40oz Exercise routine includes: walking outside, 4 days- plus exercise bike burning 300 domenic/day [facility] Medical History Cholecystitis, acute with cholelithiasis Cholelithiasis GERD (gastroesophageal reflux disease) Asthma Sciatica ADHD PTSD (post-traumatic stress disorder) Anxiety Depression Morbid obesity Surgical History (Updated 11/20/23 @ 00:03 by Elizabet Escamilla) S/P laparoscopic sleeve gastrectomy Hx laparoscopic cholecystectomy History of esophagogastroduodenoscopy (EGD) Tubal ligation status History of placement of ear tubes Hx of section Family History Mother Cancer, uterine Maternal Grandmother Cervical cancer Father FHx: prostate cancer Colon cancer Paternal Uncle Colon cancer Paternal Grandfather No problems noted. Social History Household Members: Family Housing: House Are you a primary career technical counselor to a significant other at home: No Do you presently have visiting nurse or other home services: No Alcohol intake: never Comment: comfortable Patient Tobacco Use Status: Former Tobacco user Tobacco use type: Smokeless Tobacco service: No Physical Exam Vital Signs: Last Vital Signs Temp 97.3 F 12/10/23 13:04 Pulse 112 H 12/10/23 13:04 BP 136/78 12/10/23 13:04 Pulse Ox 98 12/10/23 13:04 Oxygen Delivery Method Room Air 12/10/23 13:04 BMI result Body Mass Index 42.7 Const General: cooperative, comfortable and no acute distress Orientation/consciousness: patient oriented x3 GI Other: soft, nontender, nondistended, incisions healing well- 1 suture tail trimmed, reactive erythema around incisions but no signs of infection Neuro General: patient oriented x3 Assessment & Plan Assessment & Plan (1) S/P laparoscopic sleeve gastrectomy: Code(s): Z98.84 - Bariatric surgery status Category: Surgical (2) Morbid obesity: Code(s): E66.01 - Morbid (severe) obesity due to excess calories Category: Medical Plan Pt waiting to hear back from Dr Terry regarding any meal plan changes for this week. I gave her handout for protein bars, suggested Fitcrunch or Zone as alternative bar options since she does not like the texture of Celebrate. Can go to gift shop to purchase MVI/Ca after this appt. No heavy lifting/core work until 6w postop. RTC 1 month. I spent a total of 30 minutes reviewing/updating records, examining the patient and counseling the patient on weight management as detailed above. Medications: New inulin 2 grams PO DAILY 90 tabs 3RF docusate sodium (Colace) 100 mg PO BID 90 caps 1RF
[2023-12-10 13:04] VITALS: BP 136/78; PULSE 112; TEMP 36.3; O2SAT 98; BMI 42.7
== END 2023-12-10 13:28 | disposition home or self-care (01) ==
PROVIDERS: PCP Family Medicine; Visit Provider Physician Assistant Surgical
DX: E66.01 Morbid (severe) obesity due to excess calories (principal); Z68.41 Body mass index [BMI] 40.0-44.9, adult; Z98.84 Bariatric surgery status
CPT/HCPCS: 99024

== ENCOUNTER → 2023-12-10 12:46 | Outpatient (BNVA) | payer OTHER, SELFPAY | PROVIDERS: PCP Family Medicine; Visit Provider Physician Assistant Surgical | DX: E66.01 Morbid (severe) obesity due to excess calories (principal); Z98.84 Bariatric surgery status; Z68.41 Body mass index [BMI] 40.0-44.9, adult | CPT/HCPCS: 99212 ==

== ENCOUNTER 2023-12-24 12:24 | Outpatient (AMB) | payer OTHER, SELFPAY ==
--- NOTE | 2023-12-24 12:26 | MHC.OFFVISWM ---
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 Allergies cefaclor [From Ceclor] Allergy (Intermediate, Verified 12/24/23 12:37) Hives bandaids Allergy (Uncoded 12/24/23 12:37) Hives silk tape Allergy (Uncoded 12/24/23 12:37) Hives Medication List - Last Reconciled 12/24/23 by Billy Paige, RN docusate sodium (Colace) 100 mg PO BID escitalopram oxalate 10 mg PO DAILY hydroxyzine HCl 25 mg PO BID inulin 2 grams PO DAILY medroxyprogesterone (Depo-Provera) 150 mg IM [id number] nortriptyline 50 mg PO BEDTIME nortriptyline 10 mg PO BEDTIME pantoprazole 40 mg PO DAILY@0630 topiramate 200 mg PO BEDTIME topiramate 150 mg PO BEDTIME topiramate 50 mg PO DAILY HPI Comments Details: This?is a?38?yo female who is s/p LSG 11/11/2023. She called the answering service late 12/1923 with complaints of drainage from the midline incision. She describes the drainage as a clear fluid. This happened after doing additional hard work at the gym. She denied significant pain. She was advised to place scant bacitracin and cover with a dry clean dressing after washing with soap and water on a daily basis until she could be seen in the office today. She was seen in the office today, stating that the drainage has significantly improved and in fact has no further drainage as of her appointment. She states that it ?looks much better?. [facility] Medical History Cholecystitis, acute with cholelithiasis Cholelithiasis GERD (gastroesophageal reflux disease) Asthma Sciatica ADHD PTSD (post-traumatic stress disorder) Anxiety Depression Morbid obesity Surgical History (Updated 11/20/23 @ 00:03 by Elizabet Escamilla) S/P laparoscopic sleeve gastrectomy Hx laparoscopic cholecystectomy History of esophagogastroduodenoscopy (EGD) Tubal ligation status History of placement of ear tubes Hx of section Family History Mother Cancer, uterine Maternal Grandmother Cervical cancer Father FHx: prostate cancer Colon cancer Paternal Uncle Colon cancer Paternal Grandfather No problems noted. Social History Household Members: Family Housing: House Are you a primary animal care provider to a significant other at home: No Do you presently have visiting nurse or other home services: No Alcohol intake: never Comment: comfortable Patient Tobacco Use Status: Former Tobacco user Tobacco use type: Smokeless Tobacco service: No Physical Exam Vital Signs: Last Vital Signs Temp 97.9 F 12/24/23 12:34 Pulse 103 H 12/24/23 12:34 BP 132/82 12/24/23 12:34 Pulse Ox 96 12/24/23 12:34 Oxygen Delivery Method Room Air 12/24/23 12:34 BMI result Body Mass Index 41.4 Skin Other: Pinhole opening, now scabbed over midline incision, left lateral side. No evidence of fluctuance drainage tenderness or odor. Assessment & Plan Assessment & Plan (1) S/P laparoscopic sleeve gastrectomy: Code(s): Z98.84 - Bariatric surgery status Category: Medical Plan: Scant drainage from the left side of the midline incision, likely from a spitting suture that is no longer present. The area has scabbed over. Encouraged to continue to apply scant bacitracin for several more days, avoid going to the gym for 4 days. Return to clinic as scheduled.
[2023-12-24 12:34] VITALS: BP 132/82; PULSE 103; TEMP 36.6; O2SAT 96; BMI 41.4
== END 2023-12-24 12:48 | disposition home or self-care (01) ==
PROVIDERS: PCP Family Medicine; Visit Provider Physician Assistant Surgical
DX: Z98.84 Bariatric surgery status (principal)
CPT/HCPCS: 99024

== ENCOUNTER → 2023-12-24 12:24 | Outpatient (BNVA) | payer OTHER, SELFPAY | PROVIDERS: PCP Family Medicine; Visit Provider Physician Assistant Surgical | DX: Z98.84 Bariatric surgery status (principal); Z48.815 Encounter for surgical aftercare following surgery on the digestive system | CPT/HCPCS: 99212 ==

== ENCOUNTER 2024-01-13 14:02 | Outpatient (AMB) | payer OTHER, SELFPAY ==
--- NOTE | 2024-01-13 14:04 | MHC.OFFVISWM ---
VS Expanded 01/13/24 14:12 Height 5 ft 1 in Weight 216 lb BMI 40.8 Intake Visit Reasons: (TELEPHONE) PO LSG 11/11/23 - see note Allergies cefaclor [From Ceclor] Allergy (Intermediate, Verified 12/24/23 12:37) Hives bandaids Allergy (Uncoded 12/24/23 12:37) Hives silk tape Allergy (Uncoded 12/24/23 12:37) Hives Medication List - Last Reconciled 01/13/24 by CAMPOS Haywood docusate sodium (Colace) 100 mg PO BID escitalopram oxalate 10 mg PO DAILY hydroxyzine HCl 25 mg PO BID inulin 2 grams PO DAILY medroxyprogesterone (Depo-Provera) 150 mg IM [id number] nortriptyline 50 mg PO BEDTIME nortriptyline 10 mg PO BEDTIME pantoprazole 40 mg PO DAILY@0630 topiramate 200 mg PO BEDTIME topiramate 150 mg PO BEDTIME topiramate 50 mg PO DAILY HPI Comments Details: This?is a 38 yo female who is s/p LSG 11/11/2023. Presents for 2 month post op visit. Weight at last visit on 12/05/2023 was 219 pounds with a BMI of 41.4, weight today is 216 pounds, representing a 3 pound weight loss with a BMI today of 40.8.? No complaints of nausea, emesis, abdominal pain or reflux, or constipation. Incision that she was seen for on 12/23 is now healing well. Present meal plan includes: 2 Celebrate shake with 2 scoops 1 Premier shake with 4oz shake/4oz oatmilk Having 1 meal of solid food for dinner, takes 2 bites and is full- allowed to have 4f protein, 4f veg Exercise routine includes: walking outside, 4 days- plus exercise bike burning 300 domenic/day PFSH Medical History Cholecystitis, acute with cholelithiasis Cholelithiasis GERD (gastroesophageal reflux disease) Asthma Sciatica ADHD PTSD (post-traumatic stress disorder) Anxiety Depression Morbid obesity Surgical History (Updated 11/20/23 @ 00:03 by Elizabet Escamilla) S/P laparoscopic sleeve gastrectomy Hx laparoscopic cholecystectomy History of esophagogastroduodenoscopy (EGD) Tubal ligation status History of placement of ear tubes Hx of section Family History Mother Cancer, uterine Maternal Grandmother Cervical cancer Father FHx: prostate cancer Colon cancer Paternal Uncle Colon cancer Paternal Grandfather No problems noted. Social History Household Members: Family Housing: House Are you a primary spiritual care coordinator to a significant other at home: No Do you presently have visiting nurse or other home services: No Alcohol intake: never Comment: comfortable Patient Tobacco Use Status: Former Tobacco user Tobacco use type: Smokeless Tobacco service: No Assessment & Plan Assessment & Plan (1) S/P laparoscopic sleeve gastrectomy: Code(s): Z98.84 - Bariatric surgery status Category: Surgical (2) Morbid obesity: Code(s): E66.01 - Morbid (severe) obesity due to excess calories Category: Medical Plan Pt will text me weight measurements so I can compare body composition. She will try ground meats, currently having difficulty tolerating solid meats like chicken/beef; we discussed that her stomach may need more time to acclimate. Will continue same meal plan. Can try Miralax for constipation. Complete PPI, monitor for reflux sx. RTC 1 month. I spent a total of 30 minutes reviewing/updating records, examining the patient and counseling the patient on weight management as detailed above.
[2024-01-13 14:12] VITALS: BMI 40.8
== END 2024-01-13 14:23 | disposition home or self-care (01) ==
LOC: HO.HBS 14:02
PROVIDERS: PCP Family Medicine; Visit Provider Physician Assistant Surgical
DX: E66.01 Morbid (severe) obesity due to excess calories (principal); Z68.41 Body mass index [BMI] 40.0-44.9, adult; Z90.3 Acquired absence of stomach [part of]; Z98.84 Bariatric surgery status
CPT/HCPCS: 99024

== ENCOUNTER → 2024-01-13 14:02 | Outpatient (BNVA) | payer OTHER, SELFPAY | PROVIDERS: PCP Family Medicine; Visit Provider Physician Assistant Surgical ==

== ENCOUNTER 2024-02-25 09:09 | Outpatient (AMB) | payer OTHER, SELFPAY ==
--- NOTE | 2024-02-25 09:03 | A.OFFVIS_ITS ---
VS Expanded 02/25/24 09:04 Height 5 ft 1 in Weight 198 lb BMI 37.4 Intake Visit Reasons: telephone PO LSG 11/11/23 Allergies cefaclor [From Ceclor] Allergy (Intermediate, Verified 12/24/23 12:37) Hives bandaids Allergy (Uncoded 12/24/23 12:37) Hives silk tape Allergy (Uncoded 12/24/23 12:37) Hives Medication List - Last Reconciled 02/25/24 by CAMPOS Haywood docusate sodium (Colace) 100 mg PO BID escitalopram oxalate 10 mg PO DAILY hydroxyzine HCl 25 mg PO BID inulin 2 grams PO DAILY medroxyprogesterone (Depo-Provera) 150 mg IM [id number] nortriptyline 50 mg PO BEDTIME nortriptyline 10 mg PO BEDTIME topiramate 200 mg PO BEDTIME topiramate 150 mg PO BEDTIME topiramate 50 mg PO DAILY HPI Comments Details: This?is a?38?yo female who is s/p LSG 11/11/2023. Presents for 3 month post op visit. Weight at last visit on 01/13/2024 was 216 pounds with a BMI of 40.8, weight today is 198 pounds, representing a 18 pound weight loss with a BMI today of 37.4.? No complaints of nausea, emesis, abdominal pain or reflux, or co nstipation. Off PPI. Reporting hair loss. Getting referral to derm from PCP, vitamin levels were normal per pt. Present meal plan includes: 2 Celebrate shake with 2 scoops 1 Premier shake with 4oz shake/4oz oatmilk Having 1 meal of solid food for dinner, takes 2 bites and is full- allowed to have 4f protein, 4f veg Exercise routine includes: walking outside, 4 days- plus exercise bike burning 300 domenic/day, was told to increase to [address] 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 Medical History Cholecystitis, acute with cholelithiasis Cholelithiasis GERD (gastroesophageal reflux disease) Asthma Sciatica ADHD PTSD (post-traumatic stress disorder) Anxiety Depression Morbid obesity Surgical History (Updated 11/20/23 @ 00:03 by Elizabet Escamilla) S/P laparoscopic sleeve gastrectomy Hx laparoscopic cholecystectomy History of esophagogastroduodenoscopy (EGD) Tubal ligation status History of placement of ear tubes Hx of section Family History Mother Cancer, uterine Maternal Grandmother Cervical cancer Father FHx: prostate cancer Colon cancer Paternal Uncle Colon cancer Paternal Grandfather No problems noted. Social History Household Members: Family Housing: House Are you a primary patient care director to a significant other at home: No Do you presently have visiting nurse or other home services: No Alcohol intake: never Comment: comfortable Patient Tobacco Use Status: Former Tobacco user Tobacco use type: Smokeless Tobacco service: No Telehealth Telehealth Telehealth Platform: Telephone Location of provider rendering services: other Location of patient: address on file Patient Identification confirmed using: Name, : Yes Telehealth method: voice only Patient verbally consented to treatment: Yes Patient verbally consented to billing insurance company: Yes Patient informed of any privacy concerns related to visit: Yes Minutes spent on Phone/Video with Pt.: 15 Assessment & Plan Assessment & Plan (1) Obesity: Code(s): E66.9 - Obesity, unspecified Category: Medical (2) S/P laparoscopic sleeve gastrectomy: Code(s): Z98.84 - Bariatric surgery status Category: Medical Plan Pt doing well on current plan. Texted healthy foods list for additional options for vegetables. Discussed that hair loss often happens after bariatric surgery even when getting all protein/vitamins, pt will see derm to rule out other causes of hair loss. RTC 6 weeks. I spent a total of 30 minutes reviewing/updating records, examining the patient and counseling the patient on weight management as detailed above.
[2024-02-25 09:04] VITALS: BMI 37.4
== END 2024-02-25 09:59 | disposition home or self-care (01) ==
LOC: HO.HBS 09:09
PROVIDERS: PCP Family Medicine; Visit Provider Physician Assistant Surgical
DX: E66.812 Obesity, class 2 (principal); Z98.84 Bariatric surgery status; Z90.3 Acquired absence of stomach [part of]; Z68.37 Body mass index [BMI] 37.0-37.9, adult
CPT/HCPCS: 99214; G2211

== ENCOUNTER → 2024-02-25 09:09 | Outpatient (BNVA) | payer OTHER, SELFPAY | PROVIDERS: PCP Family Medicine; Visit Provider Physician Assistant Surgical ==

== ENCOUNTER 2024-04-13 09:38 | Outpatient (AMB) | payer OTHER, SELFPAY ==
--- NOTE | 2024-04-13 09:35 | A.OFFVIS_ITS ---
VS Expanded 04/13/24 09:38 Height 5 ft 1 in Weight 183 lb BMI 34.6 Intake Visit Reasons: TELEPHONE PO LSG 11/11/23 Allergies cefaclor [From Ceclor] Allergy (Intermediate, Verified 12/24/23 12:37) Hives bandaids Allergy (Uncoded 12/24/23 12:37) Hives silk tape Allergy (Uncoded 12/24/23 12:37) Hives Medication List - Last Reconciled 04/13/24 by CAMPOS Haywood docusate sodium (Colace) 100 mg PO BID escitalopram oxalate 10 mg PO DAILY hydroxyzine HCl 25 mg PO BID inulin 2 grams PO DAILY medroxyprogesterone (Depo-Provera) 150 mg IM [id number] nortriptyline 50 mg PO BEDTIME nortriptyline 10 mg PO BEDTIME topiramate 200 mg PO BEDTIME topiramate 150 mg PO BEDTIME topiramate 50 mg PO DAILY HPI Comments Details: This?is a?38?yo female who is s/p LSG 11/11/2023. Presents for 5 month month post op visit. Weight at last visit on 02/25/2024 was 198 pounds with a BMI of 437.4, weight today is 183 pounds, representing a 15 pound weight loss with a BMI today of 34.6.? No complaints of nausea, emesis, abdominal pain or reflux. Will have constipation if not taking bowel reg. Reporting hair loss. Getting referral to derm from PCP but can't be seen until November, vitamin levels were normal per pt. Present meal plan includes: 2 Celebrate shake with 2 scoops 1 Premier shake with 4oz shake/4oz oatmilk Having 1 meal of solid food for dinner, 4f protein, 4f veg Exercise routine includes: walking outside, 4 days- plus exercise bike [facility] Medical History Cholecystitis, acute with cholelithiasis Cholelithiasis GERD (gastroesophageal reflux disease) Asthma Sciatica ADHD PTSD (post-traumatic stress disorder) Anxiety Depression Morbid obesity Surgical History (Updated 11/20/23 @ 00:03 by Elizabet Escamilla) S/P laparoscopic sleeve gastrectomy Hx laparoscopic cholecystectomy History of esophagogastroduodenoscopy (EGD) Tubal ligation status History of placement of ear tubes Hx of section Family History Mother Cancer, uterine Maternal Grandmother Cervical cancer Father FHx: prostate cancer Colon cancer Paternal Uncle Colon cancer Paternal Grandfather No problems noted. Social History Household Members: Family Housing: House Are you a primary home care assistant to a significant other at home: No Do you presently have visiting nurse or other home services: No Alcohol intake: never Comment: comfortable Patient Tobacco Use Status: Former Tobacco user Tobacco use type: Smokeless Tobacco service: No Telehealth Telehealth Telehealth Platform: Telephone Location of provider rendering services: practice address Location of patient: address on file Patient Identification confirmed using: Name, : Yes Telehealth method: voice only Patient verbally consented to treatment: Yes Patient verbally consented to billing insurance company: Yes Patient informed of any privacy concerns related to visit: Yes Minutes spent on Phone/Video with Pt.: 15 Assessment & Plan Assessment & Plan (1) Obesity: Code(s): E66.9 - Obesity, unspecified Category: Medical (2) S/P laparoscopic sleeve gastrectomy: Code(s): Z98.84 - Bariatric surgery status Category: Surgical Plan Pt to continue meal plan and exercise regimen per Dr. Margoth Mahoney refilled per pt request. Will order 6mo labs, pt to have drawn 2w prior to next visit. RTC 6 weeks. I spent a total of 30 minutes reviewing/updating records, examining the patient and counseling the patient on weight management as detailed above. Orders: Orders Lipid Panel Today E66.9 - Obesity, unspecified, Z98.84 - Bariatric surgery status Vitamin B12 and Folate Today E66.9 - Obesity, unspecified, Z98.84 - Bariatric surgery status Zinc Today E66.9 - Obesity, unspecified, Z98.84 - Bariatric surgery status C Reactive Protein Today E66.9 - Obesity, unspecified, Z98.84 - Bariatric surgery status Vitamin B1 Today E66.9 - Obesity, unspecified, Z98.84 - Bariatric surgery status Vitamin A Today E66.9 - Obesity, unspecified, Z98.84 - Bariatric surgery status Vitamin D 25-OH Total Today E66.9 - Obesity, unspecified, Z98.84 - Bariatric surgery status Insulin Today E66.9 - Obesity, unspecified, Z98.84 - Bariatric surgery status Hemoglobin A1c Today E66.9 - Obesity, unspecified, Z98.84 - Bariatric surgery status Complete Blood Count Auto Diff Today E66.9 - Obesity, unspecified, Z98.84 - Bariatric surgery status IRON PROFILE Today E66.9 - Obesity, unspecified, Z98.84 - Bariatric surgery status Comprehensive Met. Panel Today E66.9 - Obesity, unspecified, Z98.84 - Bariatric surgery status TSH reflex Free T4 Today E66.9 - Obesity, unspecified, Z98.84 - Bariatric surgery status Ferritin Today E66.9 - Obesity, unspecified, Z98.84 - Bariatric surgery status Medications: Refilled docusate sodium (Colace) 100 mg PO BID 90 caps 3RF
[2024-04-13 09:38] VITALS: BMI 34.6
== END 2024-04-13 09:55 | disposition home or self-care (01) ==
LOC: HO.HBS 09:38
PROVIDERS: PCP Family Medicine; Visit Provider Physician Assistant Surgical
DX: E66.9 Obesity, unspecified (principal); E66.811 Obesity, class 1; Z68.34 Body mass index [BMI] 34.0-34.9, adult; Z98.84 Bariatric surgery status
CPT/HCPCS: 99214; G2211

== ENCOUNTER → 2024-04-13 09:38 | Outpatient (BNVA) | payer OTHER, SELFPAY | PROVIDERS: PCP Family Medicine; Visit Provider Physician Assistant Surgical ==

== ENCOUNTER 2024-05-10 09:09 | Outpatient (REF) | payer OTHER, SELFPAY ==
[2024-05-10 09:35] LABS: MANUAL DIFF FLAG NO
[2024-05-10 10:19] LABS: Basophils Percent Auto 0.4 % (0-2); Eosinophils Absolute Auto 0.2 X10*3/uL (0.0-0.4); Eosinophils Percent Auto 2.1 % (0-4); Hematocrit 42.6 % (37.0-47.0); Hemoglobin 14.2 g/dl (12.0-16.0); Imm Gran Abs Auto 0.01 X10*3/uL (0.00-0.03); Imm Gran Pct Auto 0.1 % (0.0-0.4); Lymphocytes Percent Auto 34.9 % (20-40); Mean Corpuscular HGB Conc 33.3 g/dl (31.0-35.0); Mean Corpuscular Hemoglobin 30.5 pg (27.0-33.0); Mean Corpuscular Volume 91.6 fL (80.0-98.0); Monocytes Absolute Auto 0.5 X10*3/uL (0.1-1.2); Monocytes Percent Auto 5.6 % (2-11); Neutrophils Absolute Auto 4.9 x10*3/uL (2.0-8.3); Neutrophils Percent Auto 56.9 % (45-73); Platelet Count 292 X10*3/uL (160-400); Red Blood Count 4.65 X10*6/uL (4.20-5.50); Red Cell Distribution Width 13.3 % (11.0-16.0); White Blood Count 8.5 X10*3/uL (4.8-10.8)
[2024-05-10 10:45] LABS: Estimated Average Glucose 91 mg/dL; Hemoglobin A1C 105.1577 umol/L; Hemoglobin A1c % 4.8 % (<6.0); Total Hemoglobin (HGBA1C) 3632.7783 umol/L
[2024-05-10 12:25] LABS: Anion Gap 9 (12-20); Ferritin 214 ng/mL (10-122); Insulin 6 uU/mL (2-29); TSH reflex Free T4 0.94 uIU/mL (0.32-4.0); Vitamin D 25-OH Total 63.5 ng/mL (>30)
[2024-05-10 12:29] LABS: Albumin Level 4.1 g/dL (3.5-5.0); Alkaline Phosphatase 105 U/L (39-117); Aspartate Amino Transferase 21 U/L (5-31); Bilirubin Total 0.4 mg/dL (0.0-1.0); Blood Urea Nitrogen 11 mg/dL (9-16); C Reactive Protein 0.76 mg/dL (< or = 0.50); Calcium 9.6 mg/dL (8.4-10.2); Carbon Dioxide 21 mmol/L (22-29); Chloride 115 mmol/L (96-108); Cholesterol 126 mg/dL (<200); Estimated Glomerular Filt Rate > 60; Folate 15.8 ng/mL (> or = 4.0); Glucose Random 81 mg/dL (60-115); HDL Cholesterol 39 mg/dL (>40); Iron 126 mcg/dL (30-160); LDL Cholesterol Calculated 71 mg/dL (<100); Percent Iron Saturation 55 % (15-50); Potassium 3.9 mmol/L (3.3-5.1); Sodium 141 mmol/L (135-145); Total Iron Binding Capacity 231 mcg/dL (228-428); Total Protein 7.4 g/dL (6.5-8.0); Triglycerides 82 mg/dL (<150); Unsaturated Iron Binding 105 ug/dL; Vitamin B12 > 2000 pg/mL (200-900)
[2024-05-10 13:02] LABS: Alanine Aminotransferase 29 U/L (0-31)
[2024-05-13 09:23] LABS: Zinc 88 mcg/dL (60-130)
[2024-05-14 02:33] LABS: Vitamin A 47 mcg/dL (38-98)
[2024-05-15 08:13] LABS: Vitamin B1 22 nmol/L (8-30)
== END 2024-05-10 09:10 | disposition home or self-care (01) ==
LOC: HO.LAB 09:09
PROVIDERS: PCP Family Medicine; Visit Provider Physician Assistant Surgical
DX: E66.9 Obesity, unspecified (principal); Z98.84 Bariatric surgery status
CPT/HCPCS: 36415; 80053; 80061; 82306; 82607; 82728; 82746; 83036; 83525; 83540; 84425; 84443; 84590; 84630; 85025; 86140

== ENCOUNTER 2024-05-26 11:07 | Outpatient (AMB) | payer OTHER, SELFPAY ==
--- NOTE | 2024-05-26 11:03 | A.OFFVIS_ITS ---
VS Expanded 05/26/24 11:08 Height 5 ft 1 in Weight 174 lb BMI 32.9 Intake Visit Reasons: TELEPHONE PO LSG 11/11/23 Allergies cefaclor [From Ceclor] Allergy (Intermediate, Verified 12/24/23 12:37) Hives bandaids Allergy (Uncoded 12/24/23 12:37) Hives silk tape Allergy (Uncoded 12/24/23 12:37) Hives Medication List - Last Reconciled 05/26/24 by CAMPOS Haywood docusate sodium (Colace) 100 mg PO BID escitalopram oxalate 10 mg PO DAILY hydroxyzine HCl 25 mg PO BID inulin 2 grams PO DAILY medroxyprogesterone (Depo-Provera) 150 mg IM [id number] nortriptyline 50 mg PO BEDTIME nortriptyline 10 mg PO BEDTIME topiramate 200 mg PO BEDTIME topiramate 150 mg PO BEDTIME topiramate 50 mg PO DAILY HPI Comments Details: This?is a?38?yo female who is s/p LSG 11/11/2023. Presents for 6mo post op visit. Weight at last visit on 04/13/2024 was 183 pounds with a BMI of 34.6, weight today is 174 pounds, representing a 9 pound weight loss with a BMI today of 32.9.? No complaints of nausea, emesis, abdominal pain or reflux, or consti pation. Present meal plan includes: 2 Celebrate shake with 2 scoops 1 Premier shake with 4oz shake/4oz oatmilk Having 1 meal of solid food for dinner, 4f protein, 4f veg Exercise routine includes: tries to do exercise bike every day Pt reports excess skin of upper arms. Have you been diagnosed with reflux (GERD)? no symptoms Score 0-5: 0=no symptoms, 1=noticeable but not bothersome (slight or occasional), 2=noticeable, bothersome but not daily, 3=bothersome and daily, 4=affects daily activities, 5=incapacitating, unable to do daily activities How bad is the heartburn: 0 Heartburn when lying down: 0 Heartburn when standing up: 0 Heartburn after meals: 0 Does heartburn change your diet: 0 Does heartburn wake you up from sleep: 0 Do you have difficulty swallowin Do you have pain with swallowin If you take medication for reflux, does this affect your daily life: 0 Total score: 0 PFSH Medical History Cholecystitis, acute with cholelithiasis Cholelithiasis GERD (gastroesophageal reflux disease) Asthma Sciatica ADHD PTSD (post-traumatic stress disorder) Anxiety Depression Morbid obesity Surgical History (Updated 11/20/23 @ 00:03 by Elizabet Escamilla) S/P laparoscopic sleeve gastrectomy Hx laparoscopic cholecystectomy History of esophagogastroduodenoscopy (EGD) Tubal ligation status History of placement of ear tubes Hx of section Family History Mother Cancer, uterine Maternal Grandmother Cervical cancer Father FHx: prostate cancer Colon cancer Paternal Uncle Colon cancer Paternal Grandfather No problems noted. Social History Household Members: Family Housing: House Are you a primary patient care representative to a significant other at home: No Do you presently have visiting nurse or other home services: No Alcohol intake: never Comment: comfortable Patient Tobacco Use Status: Former Tobacco user Tobacco use type: Smokeless Tobacco service: No Telehealth Telehealth Telehealth Platform: Telephone Location of provider rendering services: other Location of patient: address on file Patient Identification confirmed using: Name, : Yes Telehealth method: voice only Patient verbally consented to treatment: Yes Patient verbally consented to billing insurance company: Yes Patient informed of any privacy concerns related to visit: Yes Minutes spent on Phone/Video with Pt.: 16 Assessment & Plan Assessment & Plan (1) Obesity: Code(s): E66.9 - Obesity, unspecified Category: Medical (2) S/P laparoscopic sleeve gastrectomy: Code(s): Z98.84 - Bariatric surgery status Category: Surgical Plan Pt to continue meal plan as above per Dr. Justin Lab results reviewed. Continue bowel regimen for constipation. RTC 3 months. I spent a total of 30 minutes reviewing/updating records, examining the patient and counseling the patient on weight management as detailed above.
[2024-05-26 11:08] VITALS: BMI 32.9
--- OUTSIDE RECORDS SUMMARY | 2024-05-26 12:44 | XMS_ITS | Encounter Summary ---
Author Organization [facility] [address] Care Team Providers Care Bulkhead Carpenter Name Role Phone Sada Mast MD Primary Care Provider Reason for Visit * Reason Comments Depo Shot Encounter Details Date Type Department Care Team (Latest Contact Info) Description 05/17/2024 4:00 PM EST Clinical Support Obstetrics and Gynecology - [address] [phone] Encounter for surveillance of injectable contraceptive (Primary Dx) Social History Tobacco Use Types Packs/Day Years Used Date Smoking Tobacco: Former Smokeless Tobacco: Never Alcohol Use Standard Drinks/Week Comments No 0 (1 standard drink = 0.6 oz pur e alcohol) Sex and Gender Information Value Date Recorded Sex Assigned at Not on file Gender Identity Not on file Sexual Orientation Not on file Job Start Date Occupation Industry Not on file Not on file Not on file documented as of this encounter Progress Notes * Francia Herzog MA - 05/17/2024 4:00 PM EST Patient received last Depo injection on 03/01/2024. She does not have any concerns today regarding depo use. Depo-Provera administered. See Immunization section. Medication is patient supplied. Patient was instructed to remain in the department for 20 minutes and report any adverse effects. She wasinstructed when to return for the next visit. documented in this encounter Plan of Treatment Upcoming Encounters Date Type Department Care Team (Late st Contact Info) Description 06/07/2024 9:30 AM EST Nutrition Internal Medicine - [place] [address] [facility] [address] [place] [phone] Rose Mcnally, RD [address] [place] [phone] 07/19/2024 3:00 PM EDT Office Visit Adult Medicine - [place] [address] [place] [phone] Juan Carlos Luna PA [address] [place] [address] 07/27/2024 4:00 PM EDT Clinical Support Obstetrics and Gynecology - [place] [address] [place] [phone] documented as of this encounter Visit Diagnoses Diagnosis Encounter for surveillance of injectable contraceptive- Primary documented in this encounter Administered Medications Inactive Administered Medications - up to 3 most recent administrations Medication Order MAR Action Action Date Dose Rate Site medroxyPROGESTERone (DEPO-PROVERA) injection 150 mg 150 mg, intramuscular, Once, On Fri05/17/24 at 1615, For 1 dose, SHAKE WELL HAZARDOUS Drug Precautions - Low Risk (Category A/NIOSH Group 3) Reproductive Risk Only: - Double pair of ASTM standard D6978 certified chemotherapy gloves - Eye protection (goggles or face shield) required only with a potential for facial contact (i.e. concern for spitting or vomiting of the dose during or after administration) - Staff at reproductive risk (actively trying to conceive, or may be become , and ): Chemotherapy gown Given 05/17/2024 4:01 PM EST 150 mg Right Deltoid documented in this encounter Orders Medications Ordered That Trino ht Not Have Been Administered Count Last Ordered Date First Ordered Date medroxyPROGESTERone (DEPO-SD OVERA) injection 150 mg 1 05/17/2024 documented in this encounter Care Teams Bulkhead Carpenter Relationship Specialty Start Date End Date Sada Mast MD PCP - General 04/25/22 documented as of this encounter
--- OUTSIDE RECORDS SUMMARY | 2024-05-26 12:44 | XMS_ITS | Clinical Summary ---
Author Organization [facility] Address [address] [place] [address] Care Team Providers Care Ruby On Rails Developer Name Role Phone Sada Mast MD Primary Care Provider Allergies Active Allergy Reactions Criticality Noted Date Comments Cefaclor Hives Medium 08/06/2010 Other 08/28/2012 Oxycodone 02/18/2013 Medications Medication Sig Dispensed Refills Start Date End Date Status ProAir RespiClick 90 mcg/actuation aerosol powdr breath activated Inhale 2-4 puffs by mouth every 4 (four) hours. 06/18/2023 Active escitalopram (LEXAPRO) 10 mg tablet Take 1 tablet (10 mg total) by mouth 1 (one) time each day. Active fluticasone HFA (FLOVENT HFA) 110 mcg/actuation inhaler Inhale 1 puff by mouth 2 (two) times a day. 06/18/2023 Active Arnuity Ellipta 100 mcg/actuation blister with device inhaler Inhale 1 Act by mouth 1 (one) time each day. 06/25/2023 Active medroxyPROGESTERo ne 150 mg/mL injection Inject 1 mL (150 mg total) into the shoulder, thigh, or buttocks See administration instructions. for 360 days, THEN 1 mL See Admin Instructions for 360 days. Injection 1 ml every 11 weeks - Intramuscular 08/29/2023 08/18/2025 Active nortriptyline (PAMELOR) 75 mg capsule Take 1 capsule (75 mg total) by mouth at bedtime. Active topiramate 150 mg capsule,sprinkle, ER 24hr Take by mouth. Active Hospital, Clinic, or Other Facility Administered Medication Ordered Dose Route Frequency Start Date End Date Status medroxyPROGESTERone (DEPO-PROVERA) injection 150 mgIndications:Encounter for surveillance of injectable contraceptive 150 mg IM Once 05/17/2024 05/17/2024 Ended Active Problems Problem Noted Date Diagnosed Date ADHD 03/25/2024 Asthma 03/25/2024 Anxiety 03/25/2024 Bipolar disorder 03/25/2024 Depression 03/25/2024 Seasonal allergies 03/25/2024 Cervical high risk HPV (human papillomavirus) te st positive 07/24/2017 Overview (03/25/2024): Non [birth year]/18/45- repeat pap in one year 2020- LGSIL colpo neg- 06/2022- ASCUS + HPV- colpo benign 2023- colpo BLAKE 1 repeat next year Dysplasia of cervix, low grade (BLAKE 1) 7 Overview (03/25/2024): Colpo 07/2016- repeat cells normal HPV + non 16/18/45 Atypical glandular cells on cervical Pap smear 0 07/05/2016 Overview (03/25/2024): Never came for the EMB- repeat pap cells were normal Adult ADHD 07/31/2012 Encounters Date Type Department Care Team Description 05/17/2024 4:00 PM EST Clinical Support Obstetrics and Gynecology - [place] [address] [place] [address] Encounter for surveillance of injectable contraceptive (Primary Dx) 05/10/2024 Telephone Adult Medicine - [place] [address] [place] [address] Sada Mast MD 03/11/2024 Telephone [facility] [address] [place] [phone] Jadiel Arnold from Last 3 Months Immunizations Name Administration Dates Next Due DTP 09/07/1990, 8,03/08/1986,1985,1985 [id number] (Pentacel) 2mo to less than 5yo 10/04/1987 Hepatitis B (Yyxowkt-A-Liicz , Recombivax HB-Adult) 19yo and older 12/27/1999,03/21/1998,02/02/1998 Influenza Quadravalent, MDCK , 0.5ml, preservative free (Flucelvax) 6mo and older 06/18/2023,03/02/2020,02/13/2018 MMR, measles mumps and rubel la Live (Priorix; M-M-R II) 12mo and older 02/02/1998,01/11/1987 Moderna SARS-CoV-2 COVID-19, mRNA, LNP-S, preservative free 05/26/2021,10/08/2020,09/10/2020 OPV 09/07/1990, 8,1985,1985 Td Tetanus diptheria (Tdvax) 7yo and older 12/27/1999 Tdap Tetanus diptheria acell ular pertussis (Boostrix; Adacel) 7yo and older 04/21/2018,01/13/2013 Surgical History Surgery Date Site/Laterality Comments ADENOIDECTOMY PROCEDURE: HISTORICAL ADENOIDECTOMY TONSILLECTOMY PROCEDURE: HISTORICAL TONSILLECTOMY SECTION 2012 PROCEDURE: HISTORICAL DELIVERY OTHER SURGICAL HISTORY PROCEDURE: SKIN CYST CHOLECYSTECTOMY PROCEDURE: HISTORICAL CHOLECYSTECTOMY Medical History Medical History Date Comments Bipolar disorder (CMS/HCC) DX:Bi polar disorder (HCC) Anxiety DX:Anxiety Depression DX:Depression Adhd DX:ADHD Asthma DX:Asthma Seasonal allergies DX:Seasonal a llergies Family History Medical History Relation Name Comments Other: Hernia Father Pancreatic cancer Father Stroke Father Ovarian cancer Maternal Grandmother Bipolar disorder Mother Coronary artery disease Mother Hypertension Mother Other: endometriosis Mother Diabetes Paternal Grandmother No Known Problems Sister 1 No Known Problems Sister 2 No Known Problems Son 1 Rashaad No Known Problems Son 2 Major Relation Name Status Comments Brother committed suici de at age 37, his bipolar Father Alive Maternal Grandfather Maternal Grandmother Mother Alive Paternal Grandfather Paternal Grandmother Alive Sister 1 Alive Sister 2 Alive Son 1 Rashaad Alive Son 2 Major Alive Social History Tobacco Use Types Packs/Day Years [...] file Not on file Not on file Obstetrics History Last Filed Vital Signs Vital Sign Reading Time Taken Comments Blood Pressure 102/60 02/19/2024 3:26 PM EDT Pulse 107 02/19/2024 3:26 PM EDT Temperature - - Respiratory Rate - - Oxygen Saturation - - Inhaled Oxygen Concentration - - Weight 91.6 kg (202 lb) 02/19/2024 3:26 PM EDT Height 154.9 cm (5' 1 ) 02/19/2024 3:26 PM EDT Body Mass Index 38.17 02/19/2024 3:26 PM EDT Plan of Treatment Upcoming Encounters Date Type Department Care Team (Late st Contact Info) Description 06/07/2024 9:30 AM EST Nutrition Internal Medicine - [place] [address] [facility] [address] [place] [phone] Rose Mcnally, RD [address] [place] [phone] 07/19/2024 3:00 PM EDT Office Visit Adult Medicine - [address] [phone] Juan Carlos Luna PA [address] [place] [address] 07/27/2024 4:00 PM EDT Clinical Support Obstetrics and Gynecology - [address] [phone] Health Maintenance Due Date Last Done Comments Pneumococcal Vaccine: Pediatrics (0 to 5 Years) and At-Risk Patients (6 to 64 Years) (1 of 2 - PCV) 08/26/1991 Depression Screening 10/03/2019 Hepatitis C Screening 10/03/2019 Social Influencers of Health Screening 10/03/2019 COVID-19 Vaccine ( season) 2024 05/26/2021, 10/08/2020, 09/10/2020 Influenza Vaccine (#1) 2024 , 03/02/2020, 02/13/2018 DTaP,Tdap,and Td Vaccines (9 - Td or Tdap) 04/21/2028 04/21/2018, 01/13/2013, 12/27/1999, Additional history exists Cholesterol Screening (Lipid Panel) 06/18/2028 06/18/2023 Cervical Cancer Screening: HPV 06/30/2028 06/30/2023 HIB Vaccines Completed 10/04/1987, 10/04/1987 IPV Vaccines Completed 09/07/1990, 05/1987, 06/06/1987, Additional history exists MMR Vaccines Completed 02/02/1998, 01/11/1987 Hepatitis B Vaccines Completed 12/27/1999, 03/21/1998, 02/02/1998 HIV Screening Completed 12/30/2017 HPV Vaccines Aged Out No longer eligi ble based on patient's age to complete this topic Hepatitis A Vaccines Aged Out No long er eligible based on patient's age to complete this topic Meningococcal ACWY Vaccine Aged Out N o longer eligible based on patient's age to complete this topic RSV Immunization Patients Under 20 months Aged Out No longer eligible based on patient's age to complete this topic Varicella Vaccines Aged Out No longer eligible based on patient's age to complete this topic Procedures Procedure Name Priority Date/Time Associated Diagnosis Comments EXTERNAL CLINICAL LAB 05/14/2024 HPV Routine 06/30/2023 LIPID PANEL Routine 06/18/2023 HIV SCREENING Routine 12/30/2017 from Last 3 Months or Most Recently Relevant to Health Maintenance Results * External clinical lab (05/14/2024) Provider [facility] BLOOD ORDERA BLES * Cervical Cancer Screening: HPV (06/30/2023) Pathologist [facility] Cervical Cancer Screening: HPV positive, abstracted Historical Provider MD STCAIE Corral * Lipid panel (06/18/2023) Pathologist [facility] LDL/HDL Ratio 3 0 - 4 Triglycerides 116 0 - 150 mg/dL Cholesterol 146 0 - 200 mg/dL HDL 44 40 mg/dL LDL Cholesterol 79 0 - 100 mg/dL Blood Venous blood specimen / Unknown Historical Provider LAB BLOOD ORDERAB LES * Hm HIV Screening (12/30/2017) HIV Screening abstracted Historical Provider [facility] from Last 3 Months or Most Recently Relevant to Health Maintenance Care Teams Ruby On Rails Developer Relationship Specialty Start Date End Date Sada Mast MD PCP - General 04/25/22
--- OUTSIDE RECORDS SUMMARY | 2024-05-26 12:44 | XMS_ITS | Encounter Summary ---
Author Organization [facility] [place] [address] Care Team Providers Care Hospital Chaplain Name Role Phone Sada Mast MD Primary Care Provider Encounter Details Date Type Department Care Team (Late Contact Info) Description 05/10/2024 Telephone Adult [facility] [address] [place] [phone] Sada Mast MD [address] [place], [place] [phone] Social History Tobacco Use Types Packs/Day Years [...] on file documented as of this encounter Plan of Treatment Upcoming Encounters Date Type Department Care Team (Late Contact Info) Description 06/07/2024 9:30 AM EST Nutrition Internal Medicine - [place] [address] [facility] [address] [place] [phone] Rose Mcnally, JAIME [address] [place] [phone] 07/19/2024 3:00 PM EDT Office Visit Adult [facility] [address] [place] [phone] Juan Carlos Luna PA [address] [place] [address] 07/27/2024 4:00 PM EDT Clinical Support Obstetrics and Gynecology - [address] [phone] documented as of this encounter Visit Diagnoses Not on filedocumented in this encounter Care Teams Hospital Chaplain Relationship Specialty Start Date End Date aSda Mast MD PCP - General 04/25/22 documented as of this encounter
== END 2024-05-26 11:30 | disposition home or self-care (01) ==
LOC: HO.HBS 11:07
PROVIDERS: PCP Family Medicine; Visit Provider Physician Assistant Surgical
DX: E66.9 Obesity, unspecified (principal); Z98.84 Bariatric surgery status
CPT/HCPCS: 99214; G2211

== ENCOUNTER 2024-08-30 10:12 | Outpatient (AMB) | payer OTHER, SELFPAY ==
--- NOTE | 2024-08-30 10:04 | MHC.OFFVISWM ---
VS Expanded 08/30/24 10:06 Height 5 ft 1 in Weight 162 lb BMI 30.6 Intake Visit Reasons: TELEPHONE PO LSG 11/11/23 Allergies cefaclor [From Ceclor] Allergy (Intermediate, Verified 12/24/23 12:37) Hives bandaids Allergy (Uncoded 12/24/23 12:37) Hives silk tape Allergy (Uncoded 12/24/23 12:37) Hives Medication List - Last Reconciled 08/30/24 by CAMPOS Haywood docusate sodium (Colace) 100 mg PO BID escitalopram oxalate 10 mg PO DAILY hydroxyzine HCl 25 mg PO BID inulin 2 grams PO DAILY medroxyprogesterone (Depo-Provera) 150 mg IM [id number] nortriptyline 50 mg PO BEDTIME nortriptyline 10 mg PO BEDTIME topiramate 200 mg PO BEDTIME topiramate 150 mg PO BEDTIME topiramate 50 mg PO DAILY HPI Comments Details: This?is a?39?yo female who is s/p LSG 11/11/2023. Presents for 9mo post op visit. Weight at last visit on 05/26/2024 was 183 pounds with a BMI of 34.6, weight today is 174 pounds, representing a 9 pound weight loss with a BMI today of 32.9.? No complaints of nausea, emesis, abdominal pain or reflux, or constipation. Had some difficulty with health issues - had a kidney stone, teeth removed. Going for impressions for new teeth September 16. Present meal plan includes: 4 Celebrate shakes with 2 scoops each shakes with vitamins Exercise routine includes: tries to do exercise bike every day Pt reports excess skin of upper arms, also upper thighs and abdomen. Reports excess skin of arms is heavy, also excess skin around armpit, gets stuck in bra which is painful and pulls. Has to wear longer shorts/pants to prevent chafing/rubbing of excess skin during walking. Has to wear a high waistband on pants to hold excess skin of abdomen in place during movement. [facility] Medical History Cholecystitis, acute with cholelithiasis Cholelithiasis GERD (gastroesophageal reflux disease) Asthma Sciatica ADHD PTSD (post-traumatic stress disorder) Anxiety Depression Morbid obesity Surgical History (Updated 11/20/23 @ 00:03 by Elizabet Escamilla) S/P laparoscopic sleeve gastrectomy Hx laparoscopic cholecystectomy History of esophagogastroduodenoscopy (EGD) Tubal ligation status History of placement of ear tubes Hx of section Family History Mother Cancer, uterine Maternal Grandmother Cervical cancer Father FHx: prostate cancer Colon cancer Paternal Uncle Colon cancer Paternal Grandfather No problems noted. Social History Household Members: Family Housing: House Are you a primary animal care service worker to a significant other at home: No Do you presently have visiting nurse or other home services: No Alcohol intake: never Comment: comfortable Patient Tobacco Use Status: Former Tobacco user Tobacco use type: Smokeless Tobacco service: No Telehealth Telehealth Telehealth Platform: Telephone Location of provider rendering services: other Location of patient: address on file Patient Identification confirmed using: Name, : Yes Telehealth method: voice only Assessment & Plan Assessment & Plan (1) Obesity: Code(s): E66.9 - Obesity, unspecified Category: Medical (2) S/P laparoscopic sleeve gastrectomy: Code(s): Z98.84 - Bariatric surgery status Category: Surgical Plan Patient to continue meal plan per julio cesar Hahn for now due to being edentulous. She has restarted exercise. She is experiencing issues of excess skin of arms, legs, abdomen. Labs reviewed. RTC 3mo.
[2024-08-30 10:06] VITALS: BMI 30.6
--- OUTSIDE RECORDS SUMMARY | 2024-08-30 11:51 | XMS_ITS | Clinical Summary ---
Author Organization [facility] Address [address] [place] [address] Care Team Providers Care Canoe Maker Name Role Phone Sada Mast MD Primary Care Provider Allergies Active Allergy Reactions Criticality Noted Date Comments Cefaclor Hives Medium 08/06/2010 Other 08/28/2012 Oxycodone 02/18/2013 Medications ProAir RespiClick 90 mcg/actuation aerosol powdr breath activated Inhale 2-4 puffs by mouth every 4 (four) hours. 06/18/19 24 Active escitalopram (LEXAPRO) 10 mg tablet Take 1 tablet (10 mg total) by mouth 1 (one) time each day. Active fluticasone HFA (FLOVENT HFA) 110 mcg/actuation inhaler Inhale 1 puff by mouth 2 (two) times a day. 06/18/19 24 Active Arnuity Ellipta 100 mcg/actuation blister with device inhaler Inhale 1 Act by mouth 1 (one) time each day. 06/25/19 24 Active nortriptyline (PAMELOR) 75 mg capsule Take 1 capsule (75 mg total) by mouth at bedtime. Active topiramate 150 mg capsule,sprinkle, ER 24hr Take by mouth. Activ e cholecalciferol (VITAMIN D-3) 125 mcg (5,000 unit) capsule Take 1 capsule (5,000 Units total) by mouth 1 (one) time each day. 08/17/19 24 Active cyanocobalamin, vitamin B-12, 1,000 mcg tablet, sublingual DISSOLVE 1 TABLET UNDER TONGUE ONCE DAILY. ALLOW AT LEAST 30 SECONDS BEFORE SWALLOWING 08/17/19 24 Active docusate sodium (COLACE) 100 mg capsule Take 1 capsule (100 mg total) by mouth 2 (two) times a day. 07/14/19 25 Active medroxyPROGESTERo ne 150 mg/mL injectionIndicati ons:Surveillance for Depo-Provera contraception Inject 1 mL (150 mg total) into the shoulder, thigh, or buttocks See administration instructions. for 360 days, THEN 1 mL See Admin Instructions for 360 days. Injection 1 ml every 11 weeks - Intramuscular 1 mL 3 07/29/19 25 Active Hospital, Clinic, or Other Facility Administered Medication Ordered Dose Route Frequency Start Date End Date Status medroxyPROGESTERone (DEPO-PROVERA) injection 150 mgIndications:Surveillance for Depo-Provera contraception 150 mg IM Once 07/28/2024 Active Active Problems Problem Noted Date Diagnosed Date ADHD 03/25/2024 Asthma 03/25/2024 Anxiety 03/25/2024 Bipolar disorder ([facility] V24, [facility] V28) 03/06 Depression 03/25/2024 Seasonal allergies 03/25/2024 Cervical high [...] Encounters Date Type Department Care Team Description 07/27/2024 3:00 PM EDT Clinical Support Obstetrics and Gynecology - [address] [phone] Encounter for management and injection of depo-Provera (Primary Dx) 07/05/2024 9:30 AM EST Nutrition Internal Medicine - [address] [place] [address] Rose Mcnally, JAIME Obesity (BMI 30-39.9) (Primary Dx) from Last 3 Months Immunizations Name Administration Dates Next Due DTP 09/07/1990, 8,03/08/1986,1985,1985 [id number] (Pentacel) 2mo to less than 5yo 10/04/1987 Hepatitis B (Lejwjda-E-Xysaf , Recombivax HB-Adult) 19yo and older 12/27/1999,03/21/1998,02/02/1998 [...] History Medical History Date Comments Bipolar disorder (CMS/HCC V24, CMS/HCC V28) DX:Bipolar disorder (HCC) Anxiety DX:Anxiety Depression DX:Depression Adhd [...] drink = 0.6 oz pur e alcohol) Housing Instability Answer Date Recorde d Are you worried that in the next 2 months you may not have stable housing? No 06/06/2024 Food Access & Nutrition Answer Date Rec orded Do you have access to a vari ety of food including fruits and vegetables? Yes 06/06/2024 Access to Healthcare Answer Date Record ed Within the last 3 months, [facility] many times did you visit the emergency department for your medical care? 0 06/06/2024 Health Literacy Answer Date Recorded How often do you need to hav e someone help you when you read instructions, pamphlets, or other written material from your doctor or pharmacy? Sometimes 06/06/2024 Caregiver: How often do you need to have someone help you when you read instructions, pamphlets, or other written material from your doctor or pharmacy? Not on file 06/06/2024 Financial Risk Answer Date Recorded How hard is it for you to pa y for the very basics like food, housing, medical care, and air conditioning / heating? Patient declined 06/06/2024 Transportation Answer Date Recorded Has the lack of transportati on kept you from meetings, work, or from getting things needed for daily living? Patient declined 06/06/2024 Has the lack of transportati on kept you from medical appointments or from getting medications? Yes 06/06/2024 Social Isolation Answer Date Recorded How often do you feel lonely or isolated from th ose around you? Never 06/06/2024 Food Risk Answer Date Recorded Within the past 12 months we worried whether our food would run out before we got money to buy more. Never true 06/06/2024 Within the past 12 months th e food we bought just didn't last and we didn't have money to get more. Never true 06/06/2024 Dependent Care Answer Date Recorded Do you need help finding or paying for care for your loved ones. For example, child development instructor or elderly care for an older adult? Patient declined 06/06/2024 Education Answer Date Recorded Do you think completing more education or training, like finishing a GED, going to college, or learning a trade, would be helpful for you? Patient declined 06/06/2024 Employment and Income Answer Date Recor ded During the last four weeks, have you been actively looking for work? No 06/06/2024 Living Situation Answer Date Recorded What is your living situation? 0 06/06/2024 Comments No Sex and Gender Information Value Date Recorded Sex Assigned at Not on file Legal Sex Female 7:55 PM EDT Gender Identity Not on file Sexual Orientation Not on file Obstetrics History Para Term AB IAB SAB Ectopic Multiple Livin g Live Births 2 2 1 1 2 2 Date Outcome GA Total Labor Labor/2nd/3rd Weight Sex Type Anes PTL Lilian A1 A5 Name Clin 2012 Term 39w 2d 4107 g (144.9 oz) M CS-LT ranv Spinal N Livin g 8 9 Rashaad Whitfield [facility] Location:[facility] Comments:macrosomia, p olyhydramnios 2018 36w 4d 3062 g (108 oz) M CS-LT ranv Livin g Major Complications:Pre-eclampsia Delivery Location:[facility] Last Filed Vital Signs Vital Sign Reading Time Taken Comments Blood Pressure 121/72 07/27/2024 2:46 PM EDT Pulse 96 07/27/2024 2:46 PM EDT Temperature - - Respiratory Rate - - Oxygen Saturation - - Inhaled Oxygen Concentration - - Weight 76.7 kg (169 lb) 07/27/2024 2:46 PM EDT Height 154.9 cm (5' 1 ) 07/05/2024 9:43 AM EST Body Mass Index 31.93 07/05/2024 9:43 AM EST Plan of Treatment Upcoming Encounters Date Type Department Care Team (Late st Contact Info) Description 10/12/2024 3:00 PM EDT Clinical Support Obstetrics and Gynecology - [facility] [address] 10/19/2024 3:00 PM EDT Office Visit Adult Medicine - [address] [phone] Juan Carlos Luna PA [address] [place] [address] Health Maintenance Due Date Last Done Comments Pneumococcal Vaccine: Pediatrics (0 to 5 Years) and At-Risk Patients (6 to 64 Years) (1 of 2 - PCV) 2004 Hepatitis C Screening 10/03/2019 COVID-19 Vaccine ( season) 2024 05/26/2021, 10/08/2020, 09/10/2020 Influenza Vaccine (Season Ended) 2025 06/18/2023, 03/02/2020, 02/13/2018 Depression Screening 06/06/2025 06/06/2024 Social Influencers of Health Screening 06/06/2025 06/06/2024 DTaP,Tdap,and Td Vaccines (9 - Td or [...] patient's age to complete this topic Meningococcal B Vaccine Aged Out No l onger eligible based on patient's age to complete this topic RSV Immunization Patients Under 20 months Aged Out No longer eligible based on patient's age to complete this topic Varicella Vaccines Aged Out No longer eligible based on patient's age to complete this topic Procedures Procedure Name Priority Date/Time Associated Diagnosis Comments HPV Routine 06/30/2023 LIPID PANEL Routine 06/18/2023 HIV SCREENING Routine 12/30/2017 from Last 3 Months or Most Recently Relevant to Health Maintenance Results * Cervical Cancer Screening: HPV (06/30/2023) Pathologist [facility] Cervical Cancer Screening: HPV positive, abstracted [facility] Provider HEALTH MAINTENANCE Final Result * Lipid panel (06/18/2023) [facility] LDL/HDL Ratio 3 0 - 4 Triglycerides 116 0 - 150 mg/dL Cholesterol 146 0 - 200 mg/dL HDL 44 >=40 mg/dL LDL Cholesterol 79 0 - 100 mg/dL Blood Venous blood specimen / Unknown [facility] Provider LAB BLOOD ORDERABLES Patty l Result * HIV Screening (12/30/2017) [facility] HIV Screening abstracted [facility] Provider HEALTH MAINTENANCE Final Result from Last 3 Months or Most Recently Relevant to Health [place] [id number] [facility] PL[facility] Care Teams Canoe Maker Relationship Specialty Start Date End Date Sada Mast MD PCP - General 04/25/22
== END 2024-08-30 11:04 | disposition home or self-care (01) ==
LOC: HO.HBS 10:12
PROVIDERS: PCP Family Medicine; Visit Provider Physician Assistant Surgical
DX: E66.9 Obesity, unspecified (principal); E66.811 Obesity, class 1; Z68.30 Body mass index [BMI] 30.0-30.9, adult; Z98.84 Bariatric surgery status
CPT/HCPCS: 99214; G2211

== ENCOUNTER → 2024-08-30 10:12 | Outpatient (BNVA) | payer OTHER, SELFPAY | PROVIDERS: PCP Family Medicine; Visit Provider Physician Assistant Surgical ==

== ENCOUNTER 2024-11-29 10:37 | Outpatient (AMB) | payer OTHER, SELFPAY ==
--- NOTE | 2024-11-29 10:36 | A.OFFVIS_ITS ---
VS Expanded 11/29/24 10:38 Height 5 ft 1 in Weight 167 lb 5 oz BMI 31.6 Intake Visit Reasons: PHONE PO LSG 11/11/23 Allergies cefaclor (From [facility]) Allergy (Intermediate, Verified 12/24/23 12:37) Hives bandaids Allergy (Uncoded 12/24/23 12:37) Hives silk tape Allergy (Uncoded 12/24/23 12:37) Hives Medication List - Last Reconciled 11/29/24 by CAMPOS Haywood docusate sodium 100 mg PO BID escitalopram oxalate 10 mg PO DAILY hydroxyzine HCl 25 mg PO BID inulin 2 grams PO DAILY medroxyprogesterone (Depo-Provera) 150 mg IM [id number] Held on 11/12/23. Instructions: Resume on 12/13/23. nortriptyline 50 mg PO BEDTIME nortriptyline 10 mg PO BEDTIME topiramate 200 mg PO BEDTIME topiramate 150 mg PO BEDTIME topiramate 50 mg PO DAILY HPI Comments Details: This?is a?39?yo female who is s/p LSG 11/11/2023. Presents for 1yr post op visit. Weight gain of 5.5lbs since last OV 3mo ago.? No complaints of nausea, emesis, abdominal pain or reflux, or constipation. Present meal plan includes: 2 Celebrate shakes with 1 scoop each with 8oz UAM 2 shakes with half Premier premade liquid. half almond milk 1 meal- pt eating chicken, ground beef, rice/mashed potatoes, carrots... can't eat broccoli, cauli, green beans Exercise routine includes: tries to do exercise bike every day- 300 domenic burned/7 weeks Pt reports excess skin of upper arms, also upper thighs and abdomen. Reports excess skin of arms is heavy, also excess skin around armpit, gets stuck in bra which is painful and pulls. Has to wear longer shorts/pants to prevent chafing/rubbing of excess skin during walking. Has to wear a high waistband on pants to hold excess skin of abdomen in place during movement. Have you been diagnosed with reflux (GERD)? no Score 0-5: 0=no symptoms, 1=noticeable but not bothersome (slight or occasional), 2=noticeable, bothersome but not daily, 3=bothersome and daily, 4=affects daily activities, 5=incapacitating, unable to do daily activities How bad is the heartburn: 0 Heartburn when lying down: 0 Heartburn when standing up: 0 Heartburn after meals: 0 Does heartburn change your diet: 0 Does heartburn wake you up from sleep: 0 Do you have difficulty swallowin Do you have pain with swallowin If you take medication for reflux, does this affect your daily life: 0 Total score: 0 PFSH Medical History Cholecystitis, acute with cholelithiasis Cholelithiasis GERD (gastroesophageal reflux disease) Asthma Sciatica ADHD PTSD (post-traumatic stress disorder) Anxiety Depression Morbid obesity Surgical History (Updated 11/20/23 @ 00:03 by Elizabet Escamilla) S/P laparoscopic sleeve gastrectomy Hx laparoscopic cholecystectomy History of esophagogastroduodenoscopy (EGD) Tubal ligation status History of placement of ear tubes Hx of section Family History Mother Cancer, uterine Maternal Grandmother Cervical cancer Father FHx: prostate cancer Colon cancer Paternal Uncle Colon cancer Paternal Grandfather No problems noted. Social History Household Members: Family Housing: House Are you a primary medicare coordinator to a significant other at home: No Do you presently have visiting nurse or other home services: No Alcohol intake: never Comment: comfortable Patient Tobacco Use Status: Former Tobacco user Tobacco use type: Smokeless Tobacco service: No Telehealth Telehealth Telehealth Platform: Telephone Location of provider rendering services: practice address Location of patient: address on file Patient Identification confirmed using: Name, : Yes Telehealth method: voice only Patient verbally consented to treatment: Yes Patient verbally consented to billing insurance company: Yes Patient informed of any privacy concerns related to visit: Yes Minutes spent on Phone/Video with Pt.: 15 Assessment & Plan Assessment & Plan (1) S/P laparoscopic sleeve gastrectomy: Code(s): Z98.84 - Bariatric surgery status Category: Surgical (2) Obesity: Code(s): E66.9 - Obesity, unspecified Category: Medical Plan Patient to continue meal plan per Dr Terry, avoid mashed potatoes/rice and focus on eating only protein and veg. Once her teeth are fitted properly we can readdress. She is experiencing issues of excess skin of arms, legs, abdomen. Clotrimazole ointment ordered. Encouraged pt to reach out via text with any concerns between appts. RTC 3mo. Orders: Orders Vitamin D 25-OH Total Today Z98.84 - Bariatric surgery status Ferritin Today Z98.84 - Bariatric surgery status TSH reflex Free T4 Today Z98.84 - Bariatric surgery status C Reactive Protein Today Z98.84 - Bariatric surgery status Vitamin B1 Today Z98.84 - Bariatric surgery status Zinc Today Z98.84 - Bariatric surgery status Lipid Panel Today Z98.84 - Bariatric surgery status IRON PROFILE Today Z98.84 - Bariatric surgery status Hemoglobin A1c Today Z98.84 - Bariatric surgery status Vitamin A Today Z98.84 - Bariatric surgery status Vitamin B12 and Folate Today Z98.84 - Bariatric surgery status Comprehensive Met. Panel Today Z98.84 - Bariatric surgery status Complete Blood Count Auto Diff Today Z98.84 - Bariatric surgery status Insulin Today Z98.84 - Bariatric surgery status Medications: New clotrimazole 1% 1 appl topical BID 45 grams 3RF
[2024-11-29 10:38] VITALS: BMI 31.6
--- OUTSIDE RECORDS SUMMARY | 2024-11-29 11:51 | XMS_ITS | Clinical Summary ---
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 4 Active escitalopram (LEXAPRO) 10 mg tablet Take 1 tablet (10 mg total) by mouth 1 (one) time each day. Active fluticasone HFA (FLOVENT HFA) 110 mcg/actuation inhaler Inhale 1 puff by mouth 2 (two) times a day. 4 Active Arnuity Ellipta 100 mcg/actuation blister with device inhaler Inhale 1 Act by mouth 1 (one) time each day. 4 Active nortriptyline (PAMELOR) 75 mg capsule Take 1 capsule (75 mg total) by mouth at bedtime. Active TOPIRAMATE ORAL Take by mouth. Take 100mg in the morning and 300mg in the evening. PER PSYCH Active lisdexamfetamine (Vyvanse) 10 MG capsule Take 1 capsule (10 mg total) by mouth 1 (one) time each day. Max Daily Amount: 10 mg Active SUMAtriptan (IMITREX) 50 mg tabletIndication s:Other migraine without status migrainosus, not intractable Take 1 tablet (50 mg total) by mouth 1 (one) time if needed for migraine. May repeat dose once in 2 hours if no relief. Do not exceed 2 doses in 24 hours. 27 tablet 5 Active medroxyPROGESTER one 150 mg/mL injection Inject 1 mL (150 mg total) into the shoulder, thigh, or buttocks every 3 (three) months. 1 mL 1 5 Active Active Problems Problem Noted Date Diagnosed Date ADHD 03/25/2024 Asthma 03/25/2024 Anxiety 03/25/2024 Bipolar disorder (CMS/HCC V24, CMS/HCC V28) 03/06 Depression 03/25/2024 Seasonal allergies 03/25/2024 [...] Encounters Date Type Department Care Team Description 10/19/2024 3:00 PM EDT Office Visit Adult Medicine - [address] [place] [id number] Juan Carlos Luna PA Routine general medical examination at a health care facility (Primary Dx); S/P laparoscopic sleeve gastrectomy; Other migraine without status migrainosus, not intractable 10/12/2024 11:00 AM EDT Clinical Support Obstetrics and Gynecology - [address] [place] [address] Encounter for management and injection of depo-Provera (Primary Dx) from Last 3 Months Immunizations Name Administration Dates Next Due DTP 09/07/1990, 8,03/08/1986,1985,1985 ANkV-PDH-PLM (Pentacel) 2mo to less than 5yo 10/04/1987 Hepatitis B (Xnwebax-N-Wvpzv , Recombivax HB-Adult) 19yo and older 12/27/1999,03/21/1998,02/02/1998 [...] PROCEDURE: SKIN CYST CHOLECYSTECTOMY PROCEDURE: HISTORICAL CHOLECYSTECTOMY GASTRECTOMY PARTIAL / TOTAL Medical History Medical History Date Comments Bipolar disorder ([facility] V24, [facility] V28) DX:Bipolar disorder (HCC) Anxiety DX:Anxiety Depression [...] Record ed Within the last 3 months, ho w many times did you visit the emergency [...] care for your loved ones. 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 [...] Spinal N Livin g 8 9 [place] Delivery Location:[facility] Comments:macrosomia, p olyhydramnios 2018 36w 4d 3062 g (108 oz) M CS-LT ranv Livin g Major Complications:Pre-eclampsia Delivery Location:[facility] Last Filed Vital Signs Vital Sign Reading Time Taken Comments Blood Pressure 84/55 10/19/2024 2:53 PM EDT Pulse 94 10/19/2024 2:53 PM EDT Temperature 36.3 C (97.4 F) 10/19/2024 2:53 PM EDT Respiratory Rate 14 10/12/2024 11:01 AM EDT Oxygen Saturation - - Inhaled Oxygen Concentration - - Weight 75.8 kg (167 lb) 10/12/2024 11:01 AM EDT Height 165.1 cm (5' 5 ) 10/19/2024 2:53 PM EDT Body Mass Index 31.53 10/12/2024 11:01 AM EDT Plan of Treatment Upcoming Encounters Date Type Department Care Team (Late st Contact Info) Description 04/20/2025 9:30 AM EST Office Visit Adult Medicine - [address] [phone] Juan Carlos Luna PA [address] [place] [address] Health Maintenance Due Date Last Done Comments Pneumococcal Vaccine: Pediatrics (0 to 5 Years) and At-Risk Patients (6 to 49 Years) (1 of 2 - PCV) 2004 Hepatitis C Screening 10/03/2019 COVID-19 Vaccine (4 - season) 2024 05/26/2021, 10/08/2020, 09/10/2020 Influenza Vaccine (#1) 2025 , 03/02/2020, 02/13/2018 Social Influencers of Health Screening 06/06/2025 06/06/2024 DTaP,Tdap,and Td Vaccines (9 - Td or Tdap) 04/21/2028 04/21/2018, 01/13/2013, 12/27/1999, Additional history exists Cervical Cancer Screening: HPV 06/30/2028 06/30/2023 Cholesterol Screening (Lipid Panel) 10/19/2029 10/19/2024, 06/18/2023 HIB Vaccines Completed 10/04/1987, 10/04/1987 IPV Vaccines Completed 09/07/1990, 0605/1987, 06/06/1987, Additional history exists MMR Vaccines Completed 02/02/1998, 01/11/1987 Hepatitis B Vaccines Completed 12/27/1999, 03/21/1998, 02/02/1998 HIV Screening Completed 12/30/2017 Depression Screening Completed 06/06/2024 HPV Vaccines Aged Out No longer eligi [...] Procedure Name Priority Date/Time Associated Diagnosis Comments CBC WITH AUTO DIFFERENTIAL Routine 10/19/2024 3:51 PM EDT S/P laparoscopic sleeve gastrectomy FERRITIN Routine 10/19/2024 3:51 PM EDT S/P laparoscopic sleeve gastrectomy CBC AND DIFFERENTIAL Routine 10/19/2024 3:51 PM EDT S/P laparoscopic sleeve gastrectomy VITAMIN D 25 HYDROXY Routine 10/19/2024 3:51 PM EDT S/P laparoscopic sleeve gastrectomy VITAMIN B12 Routine 10/19/2024 3:51 PM EDT S/P laparoscopic sleeve gastrectomy THYROID STIMULATING HORMONE WITH REFLEX TO FREE T4 AND FREE T3 Routine 10/19/2024 3:51 PM EDT Routine general medical examination at a [facility] facility LIPID PANEL WITH REFLEX TO DIRECT LDL Routine 10/19/2024 3:51 PM EDT Routine general medical examination at a [facility] facility COMPREHENSIVE METABOLIC PANEL Routine 10/19/2024 3:51 PM EDT Routine general medical examination at a [facility] facility HM HPV Routine 06/30/2023 HIV SCREENING Routine 12/30/2017 from Last 3 Months or Most Recently Relevant to Health Maintenance Results * Thyroid stimulating hormone with reflex to free t4 and free t3 (10/19/2024 3:51 PM EDT) TSH 0.77 0.40 - 4.00 mcIU/mL LAB CHEMISTRY METHOD 10/19/2024 7:05 PM EDT [facility] Blood Venous blood specimen / Unknown Venipuncture / Unknown 10/19/2024 3:51 PM EDT 10/19/2024 3:51 PM EDT us Juan Carlos GASCA LAB BLOOD ORDERABLES Final Re sult [facility] [address] [place] [address], [place] [phone] * Lipid panel with reflex to direct LDL (10/19/2024 3:51 PM EDT) Cholesterol 117 0 - 200 mg/dL LAB CHEMISTRY METHOD 10/19/2024 6:06 PM EDT [facility] Triglycerides 72 0 - 150 mg/dL LAB CHEMISTRY METHOD 10/19/2024 6:06 PM EDT [facility] HDL 52 >=40 mg/dL LAB CHEMISTRY METHOD 10/19/2024 6:06 PM EDT [facility] LDL Calculated 51 0 - 100 mg/dL LAB CHEMISTRY METHOD 10/19/2024 6:06 PM EDT [facility] VLDL Cholesterol Neto 14.4 mg/dL LAB CHEMISTRY METHOD 10/19/2024 6:06 PM EDT [facility] Non HDL Chol. (LDL+VLDL) 65 <145 mg/dL LAB CHEMISTRY METHOD 10/19/2024 6:06 PM EDT [facility] Chol/HDL Ratio 2.3 0.0 - 4.4 LAB CHEMISTRY METHOD 10/19/2024 6:06 PM EDT [facility] Blood Venous blood specimen / Unknown Venipuncture / Unknown 10/19/2024 3:51 PM EDT 10/19/2024 3:51 PM EDT Juan Carlos GASCA LAB BLOOD ORDERABLES Final Re sult [facility] [address] [place] [address], [place] [phone] * CBC auto differential (10/19/2024 3:51 PM EDT) WBC 8.8 4.8 - 10.8 K/[facility] LAB HEMETOLOGY METHOD 10/19/2024 6:27 PM EDT [facility] RBC 4.40 3.80 - 4.80 M/[facility] LAB HEMETOLOGY METHOD 10/19/2024 6:27 PM EDT [facility] Hemoglobin 13.6 11.5 - 16.0 g/dL LAB HEMETOLOGY METHOD [facility]/19[facility]24 [facility] Hematocrit 40.9 35.0 - 47.0 % LAB HEMETOLOGY METHOD 10/19/2024 6[facility] MCV 92.1 79.0 - 98.0 FL LAB HEMETOLOGY METHOD 10/19/2024 6[facility] MCH 30.6 27.0 - 32.0 pcg LAB HEMETOLOGY METHOD 10/19/2024 6:27 PM [facility] MCHC 33.3 32.0 - 37.0 g/dL LAB HEMETOLOGY METHOD 10/19/2024 6:27 PM [facility] RDW 12.9 11.0 - 15.0 % LAB HEMETOLOGY METHOD 10/19/2024 6:27 PM [facility] Platelets 279 130 - 400 K/mcL LAB HEMETOLOGY METHOD 10/19/2024 6:27 PM [facility] MPV 9.4 7.0 - 11.0 FL LAB HEMETOLOGY METHOD 10/19/2024 6:27 PM [facility] NRBC 0.0 <1.0 % LAB HEMETOLOGY METHOD 10/19/2024 6:27 PM [facility] NRBC Absolute 0.00 <0.10 K/mcL LAB HEMETOLOGY METHOD 10/19[facility]2024 6[facility] Neutrophils Relative 42.2 % LAB HEMETOLOGY METHOD 10/19/2024 6:27 PM [facility] Lymphocytes Relative 48.5 % LAB HEMETOLOGY METHOD 10/19/2024 6:27 PM EDT [facility] Monocytes Relative 4.9 % LAB HEMETOLOGY METHOD 10/19/2024 6:27 PM EDT [facility] Eosinophils Relative 3.6 % LAB HEMETOLOGY METHOD 10/19/2024 6:27 PM EDT [facility] Basophils Relative 0.6 % LAB HEMETOLOGY METHOD 10/19/2024 6:27 PM EDT [facility] Immature Granulocytes Relative 0.2 % LAB HEMETOLOGY METHOD 10/19/2024 6:27 PM EDT [facility] Neutrophils Absolute 3.71 1.50 - 7.00 K/mcL LAB HEMETOLOGY METHOD 10/19/2024 6:27 PM EDT [facility] Lymphocytes Absolute 4.27 1.00 - 5.00 K/mcL LAB HEMETOLOGY METHOD 10/19/2024 6:27 PM EDT [facility] Monocytes Absolute 0.43 0.20 - 1.00 K/mcL LAB HEMETOLOGY METHOD 10/19/2024 6:27 PM EDT [facility] Eosinophils Absolute 0.32 0.00 - 0.50 K/mcL LAB HEMETOLOGY METHOD 10/19/2024 6:27 PM EDT [facility] Basophils Absolute 0.05 0.00 - 0.20 K/mcL LAB HEMETOLOGY METHOD 10/19/2024 6:27 PM EDT [facility] Immature Granulocytes Absolute 0.02 0.00 - 0.03 K/mcL LAB HEMETOLOGY METHOD 10/19/2024 6:27 PM EDT [facility] Blood Venous blood specimen / Unknown Venipuncture / Unknown 10/19/2024 3:51 PM EDT 10/19/2024 3:51 PM EDT us Juan Carlos GASCA LAB BLOOD ORDERABLES Final Re sult [facility] [address] [place] [address], * Vitamin D 25 hydroxy (10/19/2024 3:51 PM EDT) [facility] Vit D, 25-Hydroxy 70.4 30.0 - 80.0 ng/mL LAB CHEMISTRY METHOD 10/19/2024 7:05 PM EDT [facility] Blood Venous blood specimen / Unknown Venipuncture / Unknown 10/19/2024 3:51 PM EDT 10/19/2024 3:51 PM EDT Juan Carlos GASCA LAB BLOOD ORDERABLES Final Re sult Performing Organization Address [facility]/ZIP Co de Phone Number [facility] [address] [place] [address], * Ferritin (10/19/2024 3:51 PM EDT) [facility] Ferritin 77 8 - 252 ng/mL LAB CHEMISTRY METHOD 10/19/2024 6:29 PM EDT [facility] Blood Venous blood specimen / Unknown Venipuncture / Unknown 10/19/2024 3:51 PM EDT 10/19/2024 3:51 PM EDT Juan Carlos GASCA LAB BLOOD ORDERABLES Final Re sult Performing Organization Address City/[facility]/ZIP Co de Phone Number [facility] [address] [place] [address], [place] [phone] * (ABNORMAL) Vitamin B12 (10/19/2024 3:51 PM EDT) [facility] Vitamin B-12 >2,000(H) 250 - 900 pcg/mL LAB CHEMISTRY METHOD 10/19/2024 6:29 PM EDT [facility] Blood Venous blood specimen / Unknown Venipuncture / Unknown 10/19/2024 3:51 PM EDT 10/19/2024 3:51 PM EDT Juan Carlos GASCA LAB BLOOD ORDERABLES Final Re sult [facility] [address] [place] [address], [place] [phone] * (ABNORMAL) Comprehensive metabolic panel (10/19/2024 3:51 PM EDT) Sodium 142 133 - 145 mmol/L LAB CHEMISTRY METHOD 10/19/2024 6:06 PM [facility] Potassium 4.1 3.5 - 5.5 mmol/L LAB CHEMISTRY METHOD 10/19/2024 6:06 PM [facility] Chloride 112(H) 96 - 110 mmol/L LAB CHEMISTRY METHOD 10/19/2024 6:06 PM [facility] CO2 24 21 - 32 mmol/L LAB CHEMISTRY METHOD 10/19/2024 6:06 PM [facility] Anion Gap 6 3 - 11 LAB CHEMISTRY METHOD 10/19/2024 6:06 PM [facility] Glucose 83 70 - 100 mg/dL LAB CHEMISTRY METHOD 10/19/2024 6:06 PM [facility] BUN 18 5 - 25 mg/dL LAB CHEMISTRY METHOD 10/19/2024 6:06 PM [facility] Creatinine 0.83 0.50 - 1.10 mg/dL LAB CHEMISTRY METHOD 10/19/2024 6:06 PM [facility] eGFR 92 >=60 mL/min/1. 73m2 LAB CHEMISTRY METHOD 10/19/2024 6:06 PM [facility] Comment:Calculation based on the Chronic Kidney Disease Epidemiology Collaboration (CKD-EPI) equation refit without adjustment for race. BUN/Creatinine Ratio 21.7 LAB CHEMISTRY METHOD 10/19/2024 6:06 PM [facility] Calcium 8.5 8.5 - 10.5 mg/dL LAB CHEMISTRY METHOD 10/19/2024 6:06 PM [facility] AST (SGOT) 20 10 - 42 unit/L LAB CHEMISTRY METHOD 10/19/2024 6:06 PM [facility] ALT (SGPT) 35 10 - 60 unit/L LAB CHEMISTRY METHOD 10/19/2024 6:06 PM [facility] Alkaline Phosphatase 99 42 - 121 unit/L LAB CHEMISTRY METHOD 10/19/2024 6:06 PM [facility] Total Protein 6.9 6.0 - 8.0 g/dL LAB CHEMISTRY METHOD 10/19/2024 6:06 PM [facility] Albumin 3.7 3.2 - 5.0 g/dL LAB CHEMISTRY METHOD 10/19/2024 6:06 PM [facility] Total Bilirubin 0.2 0.0 - 1.4 mg/dL LAB CHEMISTRY METHOD 10/19/2024 6:06 PM [facility] Blood Venous blood specimen / Unknown Venipuncture / Unknown 10/19/2024 3:51 PM EDT 10/19/2024 3:51 PM EDT Juan Carlos GASCA LAB BLOOD ORDERABLES Final Re sult [facility] [address] [place] [address], * Cervical Cancer Screening: HPV (06/30/2023) Pathologist [facility] Cervical Cancer Screening: HPV positive, abstracted Historical Provider HEALTH MAINTENANCE Final Result * HIV Screening (12/30/2017) HIV Screening abstracted Historical Provider HEALTH MAINTENANCE Final Result from Last 3 Months or Most Recently Relevant to [place] [phone] [facility] 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
--- OUTSIDE RECORDS SUMMARY | 2024-11-29 11:51 | XMS_ITS ---
Author Name [facility] Organization Unknown Care Team Organization Name Specialty Phone Email Start Date End Da te [facility] Sada Mast MD Primary Care 10/11/2022 12/22/2023 [facility] Ed Gilliam DO Primary Care 07/10/202212/03 [facility] Ann-Marie Boudreaux Primary Care 03/12/2022 12/22/2023
== END 2024-11-29 10:58 | disposition home or self-care (01) ==
LOC: HO.HBS 10:37
PROVIDERS: PCP Family Medicine; Visit Provider Physician Assistant Surgical
DX: E66.9 Obesity, unspecified (principal); Z98.84 Bariatric surgery status
CPT/HCPCS: 99214